=== PATIENT | female | born 1935 ===

== ENCOUNTER 2017-12-10 13:14 | Emergency (ER) | payer MEDICARE, OTHER ==
[2017-12-10 13:14] VITALS: BMI 40.4
--- NOTE | 2017-12-10 14:28 | RAD ---
PROCEDURE: Radiographs of the Right Shoulder HISTORY: Pain s/p fall 2 days ago COMPARISON: No prior. FINDINGS: BONES: Normal. No fracture. JOINTS: Normal. Glenohumeral and acromioclavicular joints preserved. No osteoarthritis. SOFT TISSUES: Normal. OTHER FINDINGS: None. IMPRESSION: Normal radiographs of the right shoulder.
--- NOTE | 2017-12-10 14:29 | RAD ---
PROCEDURE: Right Wrist Radiographs. HISTORY: Pain s/p fall 2 days ago COMPARISON: None. FINDINGS: BONES: Normal. No fracture. JOINTS: Normal. No dislocation. SOFT TISSUES: There is soft tissue irregularity over the ventral distal forearm. OTHER FINDINGS: None. IMPRESSION: No acute fracture. Possible soft tissue injury over ventral distal forearm.
--- NOTE | 2017-12-10 14:51 | C.PDOC ---
History Of Present Illness Pt tripped and fell in her bedroom 2 days ago, injuring her right wrist. She denies LOC, dizziness or head injury. 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: language barrier Onset/Duration Of Symptoms: Days (2) Current Symptoms Are (Timing): Still Present Quality: "Pain" Severity: Moderate Exacerbating Factor(s): Movement Additional History Per: Prior Records Past Medical History Reviewed: Historical Data, Nursing Documentation, Vital Signs Vital Signs: Last Vital Signs Temp 97.5 F L 12/10/17 13:28 Pulse 80 12/10/17 13:28 Resp 20 12/10/17 13:28 BP 139/109 H 12/10/17 13:28 Pulse Ox 97 12/10/17 13:28 - Medical History PMH: Anemia, Anxiety, Arthritis (B/L KNEES ; BACK PAIN), Atrial Fibrillation, Cardia Arrhythmia (ATRIAL FIB), CHF, COPD, Fractures (left hip 10 years ago), Gall Bladder Disease (GALLSTONES), HTN, Hypothyroidism, Malignancy (Breast) Surgical History: Endoscopy, Pacemaker (left side) - [facility] Procedures ASSISTANCE WITH RESPIRATORY VENTILATION, 24-96 HRS, CPAP (08/02/16) DRAINAGE OF CHEST SUBCU/FASCIA, OPEN APPROACH (09/12/16) EXCISION OF LEFT AXILLARY LYMPHATIC, OPEN APPROACH, DIAGN (08/25/16) EXCISION OF LEFT BREAST, OPEN APPROACH (08/25/16) EXTRACTION OF CHEST SKIN, EXTERNAL APPROACH (09/12/16) FLUOROSCOPY OF SUP VENA CAVA USING L OSM CONTRAST, GUIDANCE (09/19/16) INSERTION OF INFUSION DEV INTO SUP VENA CAVA, PERC APPROACH (09/19/16) REPLAC ANY TYPE PACE DEV W/ DUAL CHAMBER DEVICE (11/18/14) Family History: States: Unknown Family Hx - Social History Hx Tobacco Use: No Hx Alcohol Use: No Hx Substance Use: No - Immunization History Hx Tetanus Toxoid Vaccination: No Hx Influenza Vaccination: No Hx Pneumococcal Vaccination: No Review Of Systems Except As Marked, All Systems Reviewed And Found Negative. Constitutional: Negative for: Fever, Weakness Cardiovascular: Negative for: Chest Pain Respiratory: Negative for: Shortness of Breath Gastrointestinal: Negative for: Vomiting, Abdominal Pain Musculoskeletal: Positive for: Shoulder Pain (mild pain in right scapula area). Negative for: Neck Pain, Leg Pain Neurological: Negative for: Weakness, Numbness, Seizures, Altered Mental Status , Headache Physical Exam - Physical Exam Appears: No Acute Distress, Chronically Ill Skin: Normal Color, Warm, Dry Head: Atraumatic Neck: Normal ROM, No Midline Cervical Tenderness, No Step Off Deformity, Supple Chest: No Tenderness Cardiovascular: Rhythm Regular Respiratory: Normal Breath Sounds, No Accessory Muscle Use Gastrointestinal/Abdominal: Soft, No Tenderness Back: No Vertebral Tenderness, Other (mild tenderness or right scapular area) Extremity: Normal ROM, Tenderness (right wrist area), Capillary Refill (wnl), No Deformity Pulses: Right Radial: Normal Neurological/Psych: Oriented x3, Normal Motor, Normal Sensation ED Course And Treatment O2 Sat by Pulse Oximetry: 97 Pulse Ox Interpretation: Normal - Other Rad Right wrist x-rays X-Ray: Viewed By Me, Read By Radiologist Interpretation: IMPRESSION: No acute fracture. Possible soft tissue injury over ventral distal forearm. - CT Scan/US Right Scapula x-rays Other Rad Studies (CT/US): Read By Radiologist, Radiology Report Reviewed CT/US Interpretation: IMPRESSION: Normal radiographs of the right shoulder. Progress Note: Pt was placed in right wrist/forearm velcro splint by me. Good alignment. Reassessment Condition: Improved Disposition Counseled Patient/Family Regarding: Studies Performed, Diagnosis, Need For Followup, Rx Given - Disposition Referrals: Oswald Gonzales MD [Staff Provider] - Disposition: HOME/ ROUTINE Disposition Time: 14:54 Condition: IMPROVED Additional Instructions: Keep your right wrist in the splint provided until healed. Follow up with your primary doctor for further evaluation and treatment. Return to the ER if you develop worsening of symptom or if you have any other concerns. Prescriptions: Acetaminophen [Tylenol Extra Strength] 2 tab PO Q6 PRN #30 tablet PRN Reason: Pain, Moderate (4-7) Instructions: Wrist Sprain (DC) Forms: [employer] (Romanian) Print Language: ITALIAN - Clinical Impression Clinical Impression: Sprain of right wrist, Fall at home
[2017-12-10 17:14] VITALS: BP 138/83; PULSE 84; RESP 22; TEMP 97.9; O2SAT 96
== END 2017-12-10 17:31 | disposition home or self-care (01) ==
LOC: C.ER 13:14
DX: S63.501A Unspecified sprain of right wrist, initial encounter (principal); W01.0XXA Fall on same level from slipping, tripping and stumbling without subsequent striking against object, initial encounter; Y92.003 Bedroom of unspecified non-institutional (private) residence as the place of occurrence of the external cause; I48.91 Unspecified atrial fibrillation; I50.9 Heart failure, unspecified; I10 Essential (primary) hypertension; E03.9 Hypothyroidism, unspecified; J44.9 Chronic obstructive pulmonary disease, unspecified

== ENCOUNTER 2018-04-05 17:59 | Inpatient (IN) | payer MEDICARE, OTHER ==
[2018-04-05 17:59] VITALS: BMI 40.4
[2018-04-05] MEDS ORDERED: Sodium Chloride 0.9% 1,000 ML IV ONE (18:32)
[2018-04-05 18:59] LABS: EOS # 0.1 K/uL (0.0-0.7); LYMPH # 0.9 K/uL (1.0-4.3); MEAN CORPUSCULAR HGB CONC 33.6 g/dL (33.0-37.0); MONO # 0.3 K/uL (0.0-0.8); NEUT # 1.1 K/uL (1.8-7.0)
[2018-04-05 19:01] LABS: SQUAMOUS EPITHIAL < 1 /hpf (0-5); URINE BACTERIA RARE (<OCC); URINE BILIRUBIN NEGATIVE (NEGATIVE); URINE BLOOD NEGATIVE (NEGATIVE); URINE CLARITY Clear (Clear); URINE COLOR Yellow (YELLOW); URINE GLUCOSE (UA) NORMAL (Normal); URINE LEUKOCYTE ESTERASE NEG Leu/uL (Negative); URINE PROTEIN NEGATIVE (NEGATIVE); URINE UROBILINOGEN NORMAL mg/dL (0.2-1.0)
[2018-04-05 19:05] LABS: EOS % 2.7 % (0.0-4.0); LYMPH % 38.7 % (20.0-40.0); MEAN PLATELET VOLUME 7.9 fL (7.2-11.7); MONO % 11.2 % (0.0-10.0); NEUT % 46.4 % (50.0-75.0); RBC 2.06 Mil/uL (3.80-5.20); RED CELL DISTRIBUTION WIDTH 18.7 % (11.5-14.5)
[2018-04-05 19:06] LABS: INR 1.2; PROTHROMBIN TIME 13.5 SECONDS (9.7-12.2)
[2018-04-05 19:09] LABS: HEMOGLOBIN 6.8 g/dL (11.0-16.0); MEAN CELL VOLUME 98.3 fL (81.0-99.0); WHITE BLOOD COUNT 2.3 K/uL (4.8-10.8)
[2018-04-05 19:47] LABS: ALT/SGPT 96 U/L (9-52); AST/SGOT 185 U/L (14-36); B-TYPE NATRIURETIC PEPTIDE 154 pg/mL (0-900); BLOOD UREA NITROGEN 65 mg/dL (7-17); CALCIUM 8.9 mg/dl (8.6-10.4); GFR NON-AFRICAN AMERICAN 23
--- NOTE | 2018-04-05 19:47 | C.PDOC ---
History Of Present Illness 83 year old female is brought in to the ED from home by her daughter for evaluation of poor appetite, lethargy that has been worsening last week. Patient has history of breast CA, left mastectomy and chemotherapy. Patient has widely known metastatic disease. Time Seen by Provider: 04/05/18 18:23 Chief Complaint (Nursing): Abdominal Pain History Per: Patient, Family History/Exam Limitations: no limitations Onset/Duration Of Symptoms: Days Current Symptoms Are (Timing): Still Present Location Of Pain/Discomfort: Diffuse Quality Of Discomfort: "Pain" Associated Symptoms: denies: Nausea, Vomiting, Diarrhea, Urinary Symptoms Exacerbating Factors: None Recent travel outside of the [place]: No Additional History Per: Patient Abnormal Vaginal Bleeding: No Past Medical History Reviewed: Historical Data, Nursing Documentation, Vital Signs Vital Signs: Last Vital Signs Temp 97.5 F L 04/06/18 00:05 Pulse 60 04/06/18 00:05 Resp 20 04/06/18 00:05 BP 124/71 04/06/18 00:05 Pulse Ox 97 04/06/18 00:05 - Medical History PMH: Anemia, Anxiety, Arthritis (B/L KNEES ; BACK PAIN), Atrial Fibrillation, Cardia Arrhythmia (ATRIAL FIB), CHF, COPD, Fractures (left hip 10 years ago), Gall Bladder Disease (GALLSTONES), HTN, Hypothyroidism, Malignancy (Breast) Denies: Chronic Kidney Disease Surgical History: Endoscopy, Pac[facility] (left side[facility] Procedures ASSISTANCE WITH RESPIRATORY VENTILATION, 24-96 HRS, CPAP (08/02/16) DRAINAGE OF CHEST SUBCU/FASCIA, OPEN APPROACH (09/12/16) EXCISION OF LEFT AXILLARY LYMPHATIC, OPEN APPROACH, DIAGN (08/25/16) EXCISION OF LEFT BREAST, OPEN APPROACH (08/25/16) EXTRACTION OF CHEST SKIN, EXTERNAL APPROACH (09/12/16) FLUOROSCOPY OF SUP VENA CAVA USING L OSM CONTRAST, GUIDANCE (09/19/16) INSERTION OF INFUSION DEV INTO SUP VENA CAVA, PERC APPROACH (09/19/16) REPLAC ANY TYPE PACE DEV W/ DUAL CHAMBER DEVICE (11/18/14) Family History: States: Unknown Family Hx - Social History Hx Tobacco Use: No Hx Alcohol Use: No Hx Substance Use: No - Immunization History Hx Tetanus Toxoid Vaccination: No Hx Influenza Vaccination: No Hx Pneumococcal Vaccination: No Review Of Systems Constitutional: Positive for: Malaise. Negative for: Fever, Chills Eyes: Negative for: Vision Change Cardiovascular: Negative for: Chest Pain, Palpitations Respiratory: Negative for: Cough, Shortness of Breath Gastrointestinal: Negative for: Nausea, Vomiting, Abdominal Pain Skin: Negative for: Rash Neurological: Negative for: Weakness, Numbness Physical Exam - Physical Exam Appears: Non-toxic, Other (elderly female, lethargic) Skin: Normal Color, Warm, Dry Head: Atraumatic, Normacephalic Eye(s): bilateral: Normal Inspection Neck: Normal ROM, Supple Chest: Symmetrical, Tenderness (left anterior chest wall discomfort), Other ( left mastectomy, surgical scar noted no rash) Cardiovascular: Rhythm Regular Respiratory: Normal Breath Sounds, No Rales, No Rhonchi, No Wheezing Gastrointestinal/Abdominal: Soft, No Tenderness, No Guarding, No Rebound, Other (obese) Extremity: Normal ROM, No Tenderness, No Swelling Neurological/Psych: Oriented x3, Normal Speech Gait: Steady ED Course And Treatment - Laboratory Results Result Diagrams: 04/05/18 18:45 04/05/18 18:45 Lab Interpretation: Abnormal (+ significant anemia, drop from baseline 9.5 (10/06 ) not mircocytic, + widened RDW) ECG: Interpreted By Nh ECG Rhythm: AV Paced ECG Interpretation: Normal Rate From EC (BPM) O2 Sat by Pulse Oximetry: 100 (ON RA) Pulse Ox Interpretation: Normal - Radiology CXR: Interpreted by Nh CXR Interpretation: Yes: No Acute Disease Reevaluation Time: 19:49 Reassessment Condition: Improved - Physician Consult Information Outcome Of Conversation: 2000: d/w Dr. Hsu- Hospitalist covering Dr. Gonzales' s pt's, ok to admit. Medical Decision Making Medical Decision Making: signficant anemia drop c/w prior 10/06 not microcytic but widened RDW argues for superimposed micro/macocytic anemias May be related to bony mets or bone marrow suppresion from prior chemotherapy for breast CA- consider Cyclophosphomide further studies as needed- consider smear and/or bone marrow bx PRIOR to blood tx's. Blood Tx's started in ED L chest discomfort: digitally reproducable @ area of L mastectomy may be related to bony mets no sig INTRAthoracic findings on Chest CT Disposition Doctor Will See Patient In The: Hospital Counseled Patient/Family Regarding: Studies Performed, Diagnosis - Disposition Disposition: HOSPITALIZED Disposition Time: 19:51 Condition: GOOD - Clinical Impression Clinical Impression: Symptomatic anemia - Scribe Statement The provider has reviewed the documentation as recorded by the Scribe Martin Monge All medical record entries made by the [place]ibe were at my direction and personally dictated by me. I have reviewed the chart and agree that the record accurately reflects my personal performance of the history, physical exam, medical decision making, and the department course for this patient. I have also personally directed, reviewed, and agree with the discharge instructions and disposition.
--- NOTE | 2018-04-05 19:58 | CP.PCM.HP ---
History of Present Illness - History of Present Illness History of Present Illness: Resident History & Physical for Hospitalist Service Patient is a 83 year old female with past medical history of anemia, atrial fibrillation, CHF, COPD HTN, hypothyroidism, breast cancer s/p mastectomy now on chemo presenting with chief complaint of weakness and swelling of the face which began about 3 days prior. History was obtained with help of daughter who was at beside. Patient has history of anemia and has received several transfusions in the past. Patient also admits to epigastric discomfort that is accompanied by shortness of breath. Patient denies any changes in diet or medications. Denies trauma, falls, headache, dizziness, chest pain, changes in bowel movements, dysuria. Past medical history: anemia, anxiety, arthritis, atrial fibrillation, CHF, COPD , cholelithiasis, HTN, hypothyroidism, malignancy (breast) Past surgical history: mastectomy (2016), pacemaker (2010), left hip surgery Social history: 5 cans of beer per day past 20 years. 2 cigarettes per week past 20 years. Denies recreational drug use. Allergies: NKDA PMD: Dr. Gonzales Pharmacy: [facility] Present on Admission - Present on Admission Any Indicators Present on Admission: No Review of Systems - Constitutional Constitutional: absent: Chills, Fever, Frequent Falls - EENT Eyes: absent: Change in Vision Nose/Mouth/Throat: absent: Sore Throat Additional comments: Admits to facial swelling. - Cardiovascular Cardiovascular: absent: Leg Edema, Palpitations, Syncope - Respiratory Respiratory: absent: Cough, Hemoptysis - Gastrointestinal Gastrointestinal: Abdominal Pain. absent: Change in Bowel Habits, Nausea, Vomiting - Genitourinary Genitourinary: absent: Dysuria - Musculoskeletal Musculoskeletal: Arthralgias - Neurological Neurological: absent: Abnormal Gait, Numbness, Headaches Past Patient History - Infectious Disease Hx of Infectious Diseases: None - Tetanus Immunizations Tetanus Immunization: Unknown - Past Medical History & Family History Past Medical History?: Yes - Past Social History Smoking Status: Former Smoker - CARDIAC Hx Atrial Fibrillation: Yes Hx Cardia Arrhythmia: Yes (ATRIAL FIB) Hx Congestive Heart Failure: Yes Hx Hypertension: Yes Hx Pacemaker: Yes (left side) - PULMONARY Hx Chronic Obstructive Pulmonary Disease (COPD): Yes - NEUROLOGICAL Hx Neurological Disorder: No - HEENT Hx HEENT Problems: Yes Hx Blind: Yes (ARTIFICIAL LEFT EYE, right eye blind) Hx Glaucoma: Yes (right eye) - RENAL Hx Chronic Kidney Disease: No - ENDOCRINE/METABOLIC Hx Hypothyroidism: Yes - HEMATOLOGICAL/ONCOLOGICAL Hx Anemia: Yes - INTEGUMENTARY Hx Dermatological Problems: No - MUSCULOSKELETAL/RHEUMATOLOGICAL Hx Arthritis: Yes (B/L KNEES ; BACK PAIN) Hx Fractures: Yes (left hip 10 years ago) - GASTROINTESTINAL Hx Gall Bladder Disease: Yes (GALLSTONES) - GENITOURINARY/GYNECOLOGICAL Hx Genitourinary Disorders: Yes (URINARY FREQUENCY) - PSYCHIATRIC Hx Anxiety: Yes Hx Substance Use: No - SURGICAL HISTORY Hx Surgeries: Yes Hx Breast Biopsy: Yes Hx Cardiac Catheterization: Yes Hx Eye Surgery: Yes (left eye) Hx Hysterectomy: Yes (4o years ago) Hx Mastectomy: Yes (left 08/25/16) Hx Orthopedic Surgery: Yes (left hip 10 yrs ago) - ANESTHESIA Hx Anesthesia: Yes Hx Anesthesia Reactions: No Hx Malignant Hyperthermia: No Meds Allergies/Adverse Reactions: Allergies Allergy/AdvReac Type Severity Reaction Status Date / Time No Known Allergies Allergy Verified 04/05/18 18:07 Physical Exam - Constitutional Appears: Non-toxic, No Acute Distress - Head Exam Head Exam: ATRAUMATIC, NORMOCEPHALIC - Eye Exam Eye Exam: Normal appearance Additional comments: Left orbital prosthesis - ENT Exam ENT Exam: Mucous Membranes Dry, Normal External Ear Exam - Neck Exam Neck exam: Positive for: Normal Inspection - Respiratory Exam Respiratory Exam: Clear to Auscultation Bilateral, NORMAL BREATHING PATTERN. absent: Respiratory Distress - Cardiovascular Exam Cardiovascular Exam: REGULAR RHYTHM, +S1, +S2 - GI/Abdominal Exam GI & Abdominal Exam: Normal Bowel Sounds, Soft. absent: Distended, Firm, Guarding, Rebound, Rigid, Tenderness - Extremities Exam Extremities exam: Positive for: calf tenderness, pedal pulses present. Negative for: pedal edema - Back Exam Back exam: NORMAL INSPECTION - Neurological Exam Neurological exam: Alert, CN II-XII Intact, Oriented x3 - Psychiatric Exam Psychiatric exam: Normal Affect, Normal Mood - Skin Skin Exam: Dry, Intact, Normal Color Results - Vital Signs Recent Vital Signs: Last Vital Signs Temp 94.1 F L 04/05/18 19:21 Pulse 66 04/05/18 19:08 Resp 18 04/05/18 19:08 BP 110/49 L 04/05/18 19:08 Pulse Ox 100 04/05/18 19:53 - Labs Result Diagrams: 04/05/18 18:45 04/05/18 18:45 Labs: Laboratory Results - last 24 hr 04/05/18 04/05/18 04/05/18 18:45 18:45 18:45 WBC 2.3 L D RBC 2.06 L Hgb 6.8 L D Hct 20.2 L MCV 98.3 D MCH 33.0 H MCHC 33.6 RDW 18.7 H Plt Count 95 L D MPV 7.9 Neut % (Auto) 46.4 L Lymph % (Auto) 38.7 [place] % (Auto) 11.2 H Eos % (Auto) 2.7 Baso % (Auto) 1.0 Neut # (Auto) 1.1 L Lymph # (Auto) 0.9 L [place] # (Auto) 0.3 Eos # (Auto) 0.1 Baso # (Auto) 0.0 Differential Comment PT 13.5 H INR 1.2 APTT 35 H Sodium Potassium Chloride Carbon Dioxide Anion Gap BUN Creatinine Est GFR ( Amer) Est GFR (Non-Af Amer) Random Glucose Calcium Total Bilirubin AST ALT Alkaline Phosphatase Troponin I NT-Pro-B Natriuret Pep Total Protein Albumin Globulin Albumin/Globulin Ratio Urine Color Yellow Urine Clarity Clear Urine pH 5.0 Ur Specific [place] 1.010 Urine Protein Negative Urine Glucose (UA) Normal Urine Ketones Negative Urine Blood Negative Urine Nitrate Negative Urine Bilirubin Negative Urine Urobilinogen Normal Ur Leukocyte Esterase Neg Urine WBC (Auto) < 1 Urine RBC (Auto) < 1 Ur Squamous Epith Cells < 1 Urine Bacteria Rare 04/05/18 18:45 WBC RBC Hgb Hct MCV MCH MCHC RDW Plt Count MPV Neut % (Auto) Lymph % (Auto) [place] % (Auto) Eos % (Auto) Baso % (Auto) Neut # (Auto) Lymph # (Auto) [place] # (Auto) Eos # (Auto) Baso # (Auto) Differential Comment PT INR APTT Sodium 135 Potassium 4.3 Chloride 102 Carbon Dioxide 22 Anion Gap 16 BUN 65 H Creatinine 2.1 H Est GFR ( Amer) 27 Est GFR (Non-Af Amer) 23 Random Glucose 146 H Calcium 8.9 Total Bilirubin 1.1 AST 185 H ALT 96 H D Alkaline Phosphatase 564 H Troponin I < 0.0120 NT-Pro-B Natriuret Pep 154 Total Protein 6.1 L Albumin 3.0 L Globulin 3.1 Albumin/Globulin Ratio 1.0 Urine Color Urine Clarity Urine pH Ur Specific [place] Urine Protein Urine Glucose (UA) Urine Ketones Urine Blood Urine Nitrate Urine Bilirubin Urine Urobilinogen Ur Leukocyte Esterase Urine WBC (Auto) Urine RBC (Auto) Ur Squamous Epith Cells Urine Bacteria Assessment & Plan - Assessment and Plan (Free Text) Plan: Weakness - Likely secondary to anemia secondary to GI bleed - FOBT positive - Hgb 6.8 - NPO - Protonix drip - 2 units PRBCs given - Continue to monitor and transfuse as needed - HAS BLED score 3 (Liver disease, Age>65, Alcohol use) - GI consulted. Appreciate recs. Abdominal pain - Likely secondary to GI bleed - Chest CT shows no acute findings in the chest. Cirrhotic liver with portal hypertension. Cholelithiasis without evidence of cholecystitis. Bulky adenopathy noted within the upper abdomen. indeterminate nodule right midlung. History of breast cancer - s/p mastectomy on chemo - Chest CT shows metastatic disease to the skeleton. MAHAD - Creatinine 2.1 - NS 100 ccs/hr - Continue to monitor Pancytopenia - Likely secondary to chemo - Heme/onc consulted. Appreciate recs. HTN - Vital signs Q4 - Followup home meds Hypothyroidism - Followup home meds CHF - Followup home meds COPD - Duonebs Q6H PRN PPX - Protonix drip - SCDs Ghazal Pritchett PGY-1 - Date & Time Date: 04/05/18 Time: 21:00
[2018-04-05] MEDS ORDERED: Sodium Chloride 0.9% 1,000 ML IV SCH (21:45)
[2018-04-05] MEDS ORDERED: Pantoprazole 80 MG in Sodium Chloride 0.9% 100 ML IVP SCH (21:45)
[2018-04-05 22:40] LABS: IRON 194 ug/dL (37-170)
[2018-04-05 22:49] LABS: % IRON SATURATION 74 (20-55); TOTAL IRON BINDING CAPACITY 262 ug/dL (250-450)
[2018-04-06] MEDS ORDERED: Pantoprazole 80 MG in Sodium Chloride 0.9% 100 ML IVPB SCH (02:15)
[2018-04-06 03:54] LABS: CK-MB < 0.22 ng/mL (0.0-3.38)
--- NOTE | 2018-04-06 08:13 | CP.PCM.PN ---
<Lila TORRESPolly Helen - Last Filed: 04/06/18 12:06> Subjective - Date & Time of Evaluation Date of Evaluation: 04/06/18 Time of Evaluation: 08:13 - Subjective Subjective: PGY3 Medicine progress note for Dr. Crocker's Service: Patient seen and examined. Patient denies complaints currently. Patient's daughter at bedside later reports that patient has increased pallor compared to baseline. Daughter reports patient is on Tamoxifen for chemotherapy and takes aspirin 81mg for history of atrial fibrillation. She also reports history of systolic CHF. CT scan of chest reports that patient had left nephrectomy- patient denies this surgery. Patient's daughter reports that the patient does drink beer daily. Objective - Vital Signs/Intake and Output Vital Signs (last 24 hours): Temp Pulse Resp BP Pulse Ox 97.5 F L 60 20 124/71 100 04/06/18 00:05 04/06/18 00:05 04/06/18 00:05 04/06/18 00:05 04/06/18 00:16 - Medications Medications: Current Medications Albuterol/Ipratropium (Duoneb 3 Mg/0.5 Mg (3 Ml) Ud) 3 ml INH RQ6 PRN PRN Reason: Shortness of Breath Sodium Chloride (Sodium Chloride 0.9%) 1,000 mls @ 100 mls/hr IV .Q10H WILLIAM Last Admin: 04/06/18 01:07 Dose: 100 mls/hr Pantoprazole Sodium 80 mg/ (Sodium Chloride) 100 mls @ 10 mls/hr IVPB .Q10H WILLIAM PRN Reason: 8 MG/HR Last Admin: 04/06/18 02:15 Dose: 10 mls/hr - Labs Labs: 04/05/18 18:45 04/05/18 18:45 PT 13.5 SECONDS (9.7-12.2) H 04/05/18 18:45 INR 1.2 04/05/18 18:45 APTT 35 SECONDS (21-34) H 04/05/18 18:45 - Constitutional Appears: No Acute Distress - Head Exam Head Exam: ATRAUMATIC, NORMOCEPHALIC - Eye Exam Eye Exam: EOMI - ENT Exam ENT Exam: Mucous Membranes Moist - Respiratory Exam Respiratory Exam: Clear to Ausculation Bilateral - Cardiovascular Exam Cardiovascular Exam: +S1, +S2 - GI/Abdominal Exam GI & Abdominal Exam: Soft. absent: Tenderness - Extremities Exam Extremities Exam: Normal Inspection - Back Exam Back Exam: NORMAL INSPECTION - Neurological Exam Neurological Exam: Alert, Awake - Psychiatric Exam Psychiatric exam: Normal Affect - Skin Skin Exam: Pallor, Warm Additional comments: no surgical scars on back or abdomen Assessment and Plan - Assessment and Plan (Free Text) Assessment: (1) Pancytopenia Assessment & Plan: Patient has history of breast cancer with mastectomy 2 years ago. Per daughter, patient on Tamoxifen, unclear last chemo date heme-onc consulted- Dr. Robert- help appreciated + fecal occult blood, GI consulted- Dr. Munguia, help appreciated (Dr. Cole covering) Patient received one unit PRBC overnight with improvement of hemoglobin from 6.8 to 7.7 Status: Acute (2) Abnormal LFTs Assessment & Plan: Will check Abdominal US will check Hepatitis panel patient reports history of "liver issue" unclear how much alcohol patient actually consuming on daily basis- history from daughter and patient conflicting Status: Acute (3) Acute renal failure Assessment & Plan: consult nephrology- Dr. Saravia, help appreciated prior admission BUN/Cr normal Patient prelim read CT chest noted for left nephrectomy; pending official report. Patient denies nephrectomy check renal US Status: Acute (4) Atrial fibrillation Assessment & Plan: takes aspirin 81mg as outpatient- holding now due to GI bleed Dr. Ortega consulted- help appreciated Status: Chronic (5) CHF (congestive heart failure) Assessment & Plan: prior echo from 2016; noted for mild impairment EF: 45% Reorder new echocardiogram to check EF off aspirin given drop in H/H patient has pacemaker Status: Chronic (6) COPD (chronic obstructive pulmonary disease) Assessment & Plan: Duonebs PRN shortness of breath chest xray 04/05: left sided pacemaker. mild venous congestion. tortuous ectatic aorta with calcification at aortic knob. mild cardiomegaly. (see full report) CT chest 04/05: (prelim read) no acute findings in the chest. metastatic disease to the skeleton. cirrhotic liver with portal hypertension. Bulky adenopathy upper abdomen. Metastatic disease cannot be excluded. Status: Chronic (7) Breast Cancer Assessment & Plan: patient s/p mastectomy 2 years ago patient on tamoxifen heme-onc consult, Dr. Robert, help appreciated CT chest shows possible metastatic disease Status: Chronic (8) Glaucoma Assessment & Plan: patient is legally blind. Status: Chronic (9) HTN (hypertension) currently normotensive, will continue to monitor Status: Chronic (10) Hypothyroidism Status: Chronic (11) Prophylactic measure Assessment & Plan: off chemical anticoagulation given concern for GI bleed Protonix 40mg IV Q12H <Georgia Crocker Leon - Last Filed: 04/06/18 18:59> Objective - Vital Signs/Intake and Output Vital Signs (last 24 hours): Temp Pulse Resp BP Pulse Ox 97.4 F L 81 20 131/78 97 04/06/18 08:12 04/06/18 08:12 04/06/18 08:12 04/06/18 08:12 04/06/18 08:12 - Medications Medications: Current Medications Albuterol/Ipratropium (Duoneb 3 Mg/0.5 Mg (3 Ml) Ud) 3 ml INH RQ6 PRN PRN Reason: Shortness of Breath Sodium Chloride (Sodium Chloride 0.9%) 1,000 mls @ 100 mls/hr IV .Q10H [facility] Last Admin: 04/06/18 01:07 Dose: 100 mls/hr Pantoprazole Sodium (Protonix Inj) 40 mg IVP Q12 WILLIAM - Labs Labs: 04/06/18 07:51 04/06/18 07:51 PT 13.5 SECONDS (9.7-12.2) H 04/05/18 18:45 INR 1.2 04/05/18 18:45 APTT 35 SECONDS (21-34) H 04/05/18 18:45 Assessment and Plan (1) Glaucoma Assessment & Plan: patient is legally blind. Status: Chronic (2) Abnormal LFTs Assessment & Plan: Will check Abdominal US will check Hepatitis panel Status: Acute (3) Pancytopenia Assessment & Plan: Patient history of breast cancer; review of EMR: ER2/PR2 positive. Patient reports last seen her heme=onc 7 months ago. Patient reports has had mastectomy about 2 years ago. Daughter casa remember the name of her heme-onc Patient is taking Tamoxfen as outpatient Patient reports she takes iron supplements as outpatient. Patient reports occasional wine 2-3 glasses on Sunday. Denies hx of ulcers, denies NSAID use. unclear if on blood thinner given history of atrial fibrillation Patient has never had endoscopy/colonoscopy/ Will consult heme-oncology. positive stool occult blood Patient unable to report if black stool or BRBPR given she is legally blind Patient received 1 unit of PRBC overnight; awaiting 2nd unit. Likely ferritin this morning is after being given PRBC per daughter, patient was very pale and weak at home. Status: Acute (4) Atrial fibrillation Assessment & Plan: will need to find out what meds she is on takes aspirin as outpatient sees dr. ortega as otupatient Status: Chronic (5) CHF (congestive heart failure) Assessment & Plan: prior echo from 2016; noted for mild impairment EF: 45% Reorder new echocardiogram to check EF off aspirin given drop in H/H Status: Chronic (6) HTN (hypertension) Status: Chronic (7) Hypothyroidism Status: Chronic (8) COPD (chronic obstructive pulmonary disease) Assessment & Plan: Duonebs PRN shortness of breathe pending chest xray pending CT chest Status: Chronic (9) Acute renal failure Assessment & Plan: consult nephrology prior admission BUN/Cr normal unclear if related to GI bleed or not Patient prelim read CT chest noted for left nephrectomy; pending official report. Patient denies nephrectomy check renal US Status: Acute (10) Pacemaker Status: Chronic (11) Prophylactic measure Assessment & Plan: off chemical anticoagulation given concern for GI bleed Protonix 40mg IV Q12H Status: Acute Attending/Attestation - Attestation I have personally seen and examined this patient.: Yes I have fully participated in the care of the patient.: Yes I have reviewed all pertinent clinical information, including history, physical exam and plan: Yes Notes (Text): Patient seen, examined and case discussed with forensic medical examiner. GI, Cardiology, Nephrology, and Hematology-oncology on case. Patient to complete 2nd unit of PRBC today. Patient with known hx of CHF, systolic. Monitor for fluid overload. Patient's daughter, Ghazala came in later, affirmed pale, weakness, unable to talk at home. No prior endo/colonoscopy. Beer drinker and aspirin for atrial fibrillation risk factors. Patient is legally blind. Patien unable to say if black stools or BRBPR. Patient is on Tamoxifen for breast cance as outpatient per jomar. Patient is full code.
[2018-04-06 08:15] LABS: ALT/SGPT 106 U/L (9-52); AST/SGOT 191 U/L (14-36); BLOOD UREA NITROGEN 59 mg/dL (7-17); CALCIUM 9.1 mg/dl (8.6-10.4); GFR NON-AFRICAN AMERICAN 27
[2018-04-06 08:18] LABS: EOS # 0.1 K/uL (0.0-0.7); EOS % 2.8 % (0.0-4.0); HEMOGLOBIN 7.7 g/dL (11.0-16.0); LYMPH # 1.2 K/uL (1.0-4.3); MEAN CELL VOLUME 96.3 fL (81.0-99.0); MEAN CORPUSCULAR HGB CONC 34.3 g/dL (33.0-37.0); MEAN PLATELET VOLUME 7.9 fL (7.2-11.7); MONO # 0.4 K/uL (0.0-0.8); MONO % 11.4 % (0.0-10.0); NEUT # 1.4 K/uL (1.8-7.0); NEUT % 45.8 % (50.0-75.0); NRBC % 0.8 % (0.0-2.0); RBC 2.34 Mil/uL (3.80-5.20); RED CELL DISTRIBUTION WIDTH 18.6 % (11.5-14.5); WHITE BLOOD COUNT 3.1 K/uL (4.8-10.8)
[2018-04-06 08:33] LABS: CK-MB < 0.22 ng/mL (0.0-3.38)
--- NOTE | 2018-04-06 09:22 | RAD ---
Chest x-ray single frontal view History: Shortness of breath. Comparison: 09/22/2016 Findings: Left-sided pacemaker. Mild venous congestion. Tortuous ectatic aorta with calcification at the aortic knob. Mild cardiomegaly. Degenerative changes in the spine. Impression: Left-sided pacemaker. Mild venous congestion. Tortuous ectatic aorta with calcification at the aortic knob. Mild cardiomegaly.
[2018-04-06 09:27] LABS: FOLATE > 20.0 ng/mL
--- NOTE | 2018-04-06 09:56 | CP.PCM.CON ---
History of Present Illness - History of Present Illness History of Present Illness: Admitted for weakness SOB. Found to have anemia. H/o metastatic breast CAncer s/p chemo. No RB, melena,. She reports a "liver problem". SH: ++ETOH- debbie 4 /week Rn present and translated. Pt seen with Dr Crocker. Reports EGD and colonsocopy 2 years ago. PMD- Dr Rosario Review of Systems - Constitutional Constitutional: Fatigue. absent: Chills, Fever, Weight Gain - EENT Eyes: Loss of Vision - Cardiovascular Cardiovascular: Chest Pain, Dyspnea - Respiratory Respiratory: absent: Cough, Wheezing - Gastrointestinal Gastrointestinal: absent: Abdominal Pain, Constipation, Hematemesis, Hematochezia, Loose Stools, Melena, Nausea, Odynophagia, Temesmus, Vomiting - Genitourinary Genitourinary: absent: Hematuria - Musculoskeletal Musculoskeletal: absent: Radiating Pain into Limb - Integumentary Integumentary: absent: Pruritus, Jaundice - Neurological Neurological: absent: Convulsions Past Patient History - Infectious Disease Hx of Infectious Diseases: None - Tetanus Immunizations Tetanus Immunization: Unknown - Past Medical History & Family History Past Medical History?: Yes - Past Social History Smoking Status: Former Smoker - CARDIAC Hx Atrial Fibrillation: Yes Hx Cardia Arrhythmia: Yes (ATRIAL FIB) Hx Congestive Heart Failure: Yes Hx Hypertension: Yes Hx Pacemaker: Yes (left side) - PULMONARY Hx Chronic Obstructive Pulmonary Disease (COPD): Yes - NEUROLOGICAL Hx Neurological Disorder: No - HEENT Hx HEENT Problems: Yes Hx Blind: Yes (ARTIFICIAL LEFT EYE, right eye blind) Hx Glaucoma: Yes (right eye) - RENAL Hx Chronic Kidney Disease: No - ENDOCRINE/METABOLIC Hx Hypothyroidism: Yes - HEMATOLOGICAL/ONCOLOGICAL Hx Anemia: Yes - INTEGUMENTARY Hx Dermatological Problems: No - MUSCULOSKELETAL/RHEUMATOLOGICAL Hx Arthritis: Yes (B/L KNEES ; BACK PAIN) Hx Fractures: Yes (left hip 10 years ago) - GASTROINTESTINAL Hx Gall Bladder Disease: Yes (GALLSTONES) - GENITOURINARY/GYNECOLOGICAL Hx Genitourinary Disorders: Yes (URINARY FREQUENCY) - PSYCHIATRIC Hx Anxiety: Yes Hx Substance Use: No - SURGICAL HISTORY Hx Surgeries: Yes Hx Breast Biopsy: Yes Hx Cardiac Catheterization: Yes Hx Eye Surgery: Yes (left eye) Hx Hysterectomy: Yes (4o years ago) Hx Mastectomy: Yes (left 08/25/16) Hx Orthopedic Surgery: Yes (left hip 10 yrs ago) - ANESTHESIA Hx Anesthesia: Yes Hx Anesthesia Reactions: No Hx Malignant Hyperthermia: No Meds Allergies/Adverse Reactions: Allergies Allergy/AdvReac Type Severity Reaction Status Date / Time No Known Allergies Allergy Verified 04/05/18 18:07 - Medications Medications: Current Medications Albuterol/Ipratropium (Duoneb 3 Mg/0.5 Mg (3 Ml) Ud) 3 ml INH RQ6 PRN PRN Reason: Shortness of Breath Sodium Chloride (Sodium Chloride 0.9%) 1,000 mls @ 100 mls/hr IV .Q10H [facility] Last Admin: 04/06/18 01:07 Dose: 100 mls/hr Pantoprazole Sodium 80 mg/ (Sodium Chloride) 100 mls @ 10 mls/hr IVPB .Q10H [facility] PRN Reason: 8 MG/HR Last Admin: 04/06/18 02:15 Dose: 10 mls/hr Physical Exam - Constitutional Appears: Non-toxic - Respiratory Exam Respiratory Exam: Clear to Auscultation Bilateral - Cardiovascular Exam Cardiovascular Exam: Irregular Rhythm, RRR - GI/Abdominal Exam GI & Abdominal Exam: Normal Bowel Sounds, Soft. absent: Distended, Tenderness - Extremities Exam Extremities exam: Negative for: calf tenderness - Neurological Exam Neurological exam: Alert, Oriented x3 Results - Vital Signs Recent Vital Signs: Last Vital Signs Temp 97.4 F L 04/06/18 08:12 Pulse 81 04/06/18 08:12 Resp 20 04/06/18 08:12 BP 131/78 04/06/18 08:12 Pulse Ox 97 04/06/18 08:12 - Labs Result Diagrams: 04/06/18 07:51 04/06/18 07:51 Labs: Laboratory Results - last 24 hr 04/05/18 04/05/18 04/05/18 18:45 18:45 18:45 WBC 2.3 L D RBC 2.06 L Hgb 6.8 L D Hct 20.2 L MCV 98.3 D MCH 33.0 H MCHC 33.6 RDW 18.7 H Plt Count 95 L D MPV 7.9 Neut % (Auto) 46.4 L Lymph % (Auto) 38.7 Tyrrell % (Auto) 11.2 H Eos % (Auto) 2.7 Baso % (Auto) 1.0 Neut # (Auto) 1.1 L Lymph # (Auto) 0.9 L Tyrrell # (Auto) 0.3 Eos # (Auto) 0.1 Baso # (Auto) 0.0 Differential Comment Retic Count PT 13.5 H INR 1.2 APTT 35 H Sodium Potassium Chloride Carbon Dioxide Anion Gap BUN Creatinine Est GFR ( Amer) Est GFR (Non-Af Amer) Random Glucose Calcium Iron TIBC % Saturation Ferritin Total Bilirubin AST ALT Alkaline Phosphatase Total Creatine Kinase CK-MB (Mass) Troponin I NT-Pro-B Natriuret Pep Total Protein Albumin Globulin Albumin/Globulin Ratio Vitamin B12 Folate Urine Color Yellow Urine Clarity Clear Urine pH 5.0 Ur Specific [place] 1.010 Urine Protein Negative Urine Glucose (UA) Normal Urine Ketones Negative Urine Blood Negative Urine Nitrate Negative Urine Bilirubin Negative Urine Urobilinogen Normal Ur Leukocyte Esterase Neg Urine WBC (Auto) < 1 Urine RBC (Auto) < 1 Ur Squamous Epith Cells < 1 Urine Bacteria Rare Stool Occult Blood Blood Type Antibody Screen 04/05/18 04/05/18 04/05/18 18:45 19:54 20:08 WBC RBC Hgb Hct MCV MCH MCHC RDW Plt Count MPV Neut % (Auto) Lymph % (Auto) Tyrrell % (Auto) Eos % (Auto) Baso % (Auto) Neut # (Auto) Lymph # (Auto) Tyrrell # (Auto) Eos # (Auto) Baso # (Auto) Differential Comment Retic Count PT INR APTT Sodium 135 Potassium 4.3 Chloride 102 Carbon Dioxide 22 Anion Gap 16 BUN 65 H Creatinine 2.1 H Est GFR ( Amer) 27 Est GFR (Non-Af Amer) 23 Random Glucose 146 H Calcium 8.9 Iron TIBC % Saturation Ferritin Total Bilirubin 1.1 AST 185 H ALT 96 H D Alkaline Phosphatase 564 H Total Creatine Kinase CK-MB (Mass) Troponin I < 0.0120 NT-Pro-B Natriuret Pep 154 Total Protein 6.1 L Albumin 3.0 L Globulin 3.1 Albumin/Globulin Ratio 1.0 Vitamin B12 Folate Urine Color Urine Clarity Urine pH Ur Specific [place] Urine Protein Urine Glucose (UA) Urine Ketones Urine Blood Urine Nitrate Urine Bilirubin Urine Urobilinogen Ur Leukocyte Esterase Urine WBC (Auto) Urine RBC (Auto) Ur Squamous Epith Cells Urine Bacteria Stool Occult Blood Positive H Blood Type O POSITIVE Antibody Screen Negative 0804/06/18 04/06/18 22:25 02:53 07:51 WBC RBC Hgb Hct MCV MCH MCHC RDW Plt Count MPV Neut % (Auto) Lymph % (Auto) Tyrrell % (Auto) Eos % (Auto) Baso % (Auto) Neut # (Auto) Lymph # (Auto) Tyrrell # (Auto) Eos # (Auto) Baso # (Auto) Differential Comment Retic Count PT INR APTT Sodium 139 Potassium 4.7 Chloride 107 Carbon Dioxide 25 Anion Gap 13 BUN 59 H Creatinine 1.8 H Est GFR ( Amer) 33 Est GFR (Non-Af Amer) 27 Random Glucose 88 Calcium 9.1 Iron 194 H TIBC 262 % Saturation 74 H Ferritin 528.0 Total Bilirubin 1.5 H AST 191 H ALT 106 H Alkaline Phosphatase 567 H Total Creatine Kinase 54 CK-MB (Mass) < 0.22 Troponin I < 0.0120 NT-Pro-B Natriuret Pep Total Protein 6.0 L Albumin 3.0 L Globulin 3.0 Albumin/Globulin Ratio 1.0 Vitamin B12 > 1000 H Folate > 20.0 Urine Color Urine Clarity Urine pH Ur Specific [place] Urine Protein Urine Glucose (UA) Urine Ketones Urine Blood Urine Nitrate Urine Bilirubin Urine Urobilinogen Ur Leukocyte Esterase Urine WBC (Auto) Urine RBC (Auto) Ur Squamous Epith Cells Urine Bacteria Stool Occult Blood Blood Type Antibody Screen 04/06/18 04/06/18 04/06/18 07:51 07:51 07:51 WBC 3.1 L RBC 2.34 L Hgb 7.7 L Hct 22.5 L MCV 96.3 D MCH 33.0 H MCHC 34.3 RDW 18.6 H Plt Count 84 L MPV 7.9 Neut % (Auto) 45.8 L Lymph % (Auto) 39.0 Tyrrell % (Auto) 11.4 H Eos % (Auto) 2.8 Baso % (Auto) 1.0 Neut # (Auto) 1.4 L Lymph # (Auto) 1.2 Tyrrell # (Auto) 0.4 Eos # (Auto) 0.1 Baso # (Auto) 0.0 Differential Comment Retic Count 3.0 H D PT INR APTT Sodium Potassium Chloride Carbon Dioxide Anion Gap BUN Creatinine Est GFR ( Amer) Est GFR (Non-Af Amer) Random Glucose Calcium Iron TIBC % Saturation Ferritin Total Bilirubin AST ALT Alkaline Phosphatase Total Creatine Kinase 56 CK-MB (Mass) < 0.22 Troponin I < 0.0120 NT-Pro-B Natriuret Pep Total Protein Albumin Globulin Albumin/Globulin Ratio Vitamin B12 Folate Urine Color Urine Clarity Urine pH Ur Specific [place] Urine Protein Urine Glucose (UA) Urine Ketones Urine Blood Urine Nitrate Urine Bilirubin Urine Urobilinogen Ur Leukocyte Esterase Urine WBC (Auto) Urine RBC (Auto) Ur Squamous Epith Cells Urine Bacteria Stool Occult Blood Blood Type Antibody Screen Assessment & Plan (1) Abnormal LFTs Assessment and Plan: Chr liver disease- cirrhosis. Consider due to ETOH. Check hep profile, NH3 Status: Acute (2) Pancytopenia Assessment and Plan: COnsider due to met cancer, chemo, chr disease. Status: Acute (3) Anemia Assessment and Plan: May be related to breast CA, mets, cirrhosis. But Hb is less than before and is g pos. REC: Check Hb, PPI. DIscuss over all condition with Medical team and Dr Robert, check past GI w/u, then consider EGD. Status: Acute (4) Atrial fibrillation Assessment and Plan: Check if on anticoagulation Status: Acute (5) Hypothyroidism Status: Acute (6) Pacemaker Status: Acute (7) Breast CA Status: Chronic Priority: Medium (8) Glaucoma Status: Acute
[2018-04-06] MEDS ORDERED: Sodium Chloride 0.9% 1,000 ML IV SCH (10:15)
[2018-04-06] MEDS ORDERED: MethylPREDNISolone 40 mg Vial IVP STA (14:12)
[2018-04-06] MEDS ORDERED: Albuterol-Ipratrop 3 mg / 0.5 (3 ml) UD INH STA (14:14)
--- NOTE | 2018-04-06 14:28 | CT ---
CT chest History: Chest pain. Comparison: None available. Technique: Multiple contiguous axial images were performed through the chest without the use of intravenous contrast. Subsequently, sagittal and coronal reformatted images were obtained. This CT exam was performed using one or more of the following dose reduction techniques: Automated exposure control, adjustment of the mA and/or kV according to patient size, and/or use of iterative reconstruction technique. Findings: Pulmonary nodule measuring 4 millimeters in the right upper lobe on series 3, image 48. Punctate 1 millimeter pulmonary nodule/granuloma at the right middle lobe on series 3, image 60. Atelectasis with a few punctate nodular densities seen more inferiorly within the anterior aspect of the right middle lobe on series 3, image 66. Right basilar atelectatic changes. 2 millimeter pulmonary nodule within the right lower lobe on series 3, image 59. 6 millimeter subpleural calcified granuloma within the right lower lobe on series 3, image 50. 4 millimeter pulmonary nodule within the left upper lobe anteriorly on series 3, image 44. Left basilar atelectasis. 7 millimeter focal area of nodular consolidation within the left lower lobe posterior laterally. Trachea thru central airways are patent. No gross pleural effusion. Atherosclerotic calcification and ectasia of the aorta. Moderate atherosclerotic calcification the coronary arteries. Lymphadenopathy noted in the upper abdomen in the para-aortic regions and at the level of the renal hilum and celiac axis measuring up to 4 centimeters. Nodular contour to the liver with hypertrophy of the caudate lobe suggestive for cirrhosis. Perihepatic fluid present. Punctate calcifications within the right hepatic lobe. Few scattered hypodensities in the liver, too small to adequately characterize. These may be better evaluated with multiphasic CT. Nodular thickening of the adrenal glands. Left adrenal gland is not well delineated given the adjacent prominent lymphadenopathy. Cholelithiasis. Punctate calcifications in the spleen suggestive for remote granulomatous exposure. Multiple low-attenuation lesions in the kidneys bilaterally. These may represent cysts however additional etiologies are not excluded. Additional 6 millimeter hyperdense lesion seen in the midpole of the left kidney, too small to adequately characterize. Extensive sclerosis throughout the visualized osseous structures concerning for metastatic disease. On the lateral view, there is a suggestion of a prominent compression fracture/compression deformity of a lumbar vertebral body, indeterminate chronicity, which is incompletely visualized on this study. Correlation with lumbar spine MRI is recommended for further evaluation if clinically indicated. In addition, there is mild loss of height of the superior endplate of a mid to lower thoracic vertebral body. Cardiac pacing device/AICD in place. Some soft tissue prominence noted within the lateral aspect of the right breast on series 4, image 64. Correlation with mammography would be helpful for further evaluation if clinically indicated. Impression: Metastatic disease to the skeleton. On the lateral view, there is a suggestion of a prominent compression fracture/compression deformity of a lumbar vertebral body, indeterminate chronicity, which is incompletely visualized on this study. Correlation with lumbar spine MRI is recommended for further evaluation if clinically indicated. In addition, there is mild loss of height of the superior endplate of a mid to lower thoracic vertebral body. Cirrhotic liver with portal hypertension. Cholelithiasis. Prominent bulky adenopathy within the upper abdomen. Metastatic disease cannot be excluded. Correlation with PET CT scan may be helpful if clinically indicated. Indeterminate nodules in the lungs. Again correlation with PET CT scan may be helpful if clinically indicated. Additional findings as above. These findings were preliminarily reported at 7:30 p.m. on 04/05/[address] Billy Zhao from [facility].
--- NOTE | 2018-04-06 17:45 | US ---
Abdominal ultrasound History: Abdominal pain. Thrombocytopenia. Liver disease. Comparison: None available. Technique: Real-time sonography was performed through the abdomen. Findings: Liver: 14 centimeters in length. Increased echogenicity of the hepatic parenchymal cortex suggestive for hepatic parenchymal disease versus fatty infiltration. Nodular and cirrhotic contour of the liver. Reversal of flow within the portal vein concerning for portal hypertension. Perihepatic ascites. Gallbladder: Cholelithiasis. Gallbladder wall appears thickened up to 4 millimeters. Associated gallbladder wall edema. Negative sonographic Nunez's sign. Common bile duct measures 6 millimeters, mildly prominent. Pancreas not well visualized. Spleen measures 10.7 centimeters length. Splenic calcifications noted. Limited visualization of the aorta and IVC. Increased echogenicity of the bilateral renal parenchymal cortices suggestive for medical renal disease. Atrophic kidneys. Right kidney: 9.3 x 4.9 x 5.3 centimeters. Multiple cysts; for example, mid to upper pole hypoechoic cyst measuring 1.8 x 1.5 x 1.4 centimeters. Lower pole hypoechoic cyst measuring 1.6 x 1.3 x 1.5 centimeters. No calculi or hydronephrosis. Left kidney: 7.1 x 3.6 x 3.3 centimeters. No calculi or hydronephrosis. Multiple cysts; for example, midpole hypoechoic cyst measuring 2.0 x 2.0 x 2.1 centimeters and mid to lower pole hypoechoic cyst measuring 1.8 x 1.9 x 2.1 centimeters with some internal peripheral nodularity. Urinary bladder is underdistended. Ascites throughout the abdomen. Impression: 1. Increased echogenicity of the hepatic parenchymal cortex suggestive for hepatic parenchymal disease versus fatty infiltration. Nodular and cirrhotic contour of the liver. Reversal of flow within the portal vein concerning for portal hypertension. Perihepatic ascites. 2.Cholelithiasis. Gallbladder wall appears thickened up to 4 millimeters. Associated gallbladder wall edema. Negative sonographic Nunez's sign. 3. Common bile duct measures 6 millimeters, mildly prominent. 4. Pancreas not well visualized. 5. Limited visualization of the aorta and IVC. 6. Increased echogenicity of the bilateral renal parenchymal cortices suggestive for medical renal disease. Atrophic kidneys. Bilateral renal cysts. 7. Urinary bladder is underdistended. Limiting evaluation. 8. Ascites throughout the abdomen.
--- NOTE | 2018-04-06 17:46 | US ---
Renal ultrasound History: Abdominal pain. Thrombocytopenia. Liver disease. Comparison: None available. Technique: Real-time sonography was performed through the kidneys. Findings: Limited visualization of the aorta and IVC. Increased echogenicity of the bilateral renal parenchymal cortices suggestive for medical renal disease. Atrophic kidneys. Right kidney: 9.3 x 4.9 x 5.3 centimeters. Multiple cysts; for example, mid to upper pole hypoechoic cyst measuring 1.8 x 1.5 x 1.4 centimeters. Lower pole hypoechoic cyst measuring 1.6 x 1.3 x 1.5 centimeters. No calculi or hydronephrosis. Left kidney: 7.1 x 3.6 x 3.3 centimeters. No calculi or hydronephrosis. Multiple cysts; for example, midpole hypoechoic cyst measuring 2.0 x 2.0 x 2.1 centimeters and mid to lower pole hypoechoic cyst measuring 1.8 x 1.9 x 2.1 centimeters with some internal peripheral nodularity. Urinary bladder is underdistended. Ascites throughout the abdomen. Impression: 1. Limited visualization of the aorta and IVC. 2. Increased echogenicity of the bilateral renal parenchymal cortices suggestive for medical renal disease. Atrophic kidneys. Bilateral renal cysts as described above. 3. Urinary bladder is underdistended. Limiting evaluation. 4. Ascites throughout the abdomen.
[2018-04-06 19:24] LABS: BASO % 0.6 % (0.0-2.0); EOS # 0.1 K/uL (0.0-0.7); EOS % 1.6 % (0.0-4.0); HEMOGLOBIN 9.7 g/dL (11.0-16.0); LYMPH % 34.1 % (20.0-40.0); MEAN CELL VOLUME 92.5 fL (81.0-99.0); MEAN CORPUSCULAR HEMOGLOBIN 32.4 pg (27.0-31.0); MEAN PLATELET VOLUME 7.5 fL (7.2-11.7); MONO # 0.1 K/uL (0.0-0.8); MONO % 3.8 % (0.0-10.0); NEUT # 1.8 K/uL (1.8-7.0); NEUT % 59.9 % (50.0-75.0); NRBC % 0.5 % (0.0-2.0); RBC 2.99 Mil/uL (3.80-5.20)
--- NOTE | 2018-04-06 22:06 | CP.PCM.CON ---
History of Present Illness - History of Present Illness History of Present Illness: Patient is a 83 year old female with past medical history of anemia, atrial fibrillation, CHF, COPD HTN, hypothyroidism, breast cancer s/p mastectomy now on chemo presenting with chief complaint of weakness and swelling of the face which began about 3 days prior. History was obtained with help of daughter who was at beside. Patient has history of anemia and has received several transfusions in the past. Patient also admits to epigastric discomfort that is accompanied by shortness of breath. Patient denies any changes in diet or medications. Denies trauma, falls, headache, dizziness, chest pain, changes in bowel movements, dysuria. Past medical history: anemia, anxiety, arthritis, atrial fibrillation, CHF, COPD , cholelithiasis, HTN, hypothyroidism, malignancy (breast) Past surgical history: mastectomy (2016), pacemaker (2010), left hip surgery Social history: 5 cans of beer per day past 20 years. 2 cigarettes per week past 20 years. Denies recreational drug use. Allergies: NKDA PMD: Dr. Gonzales Pharmacy: [facility] Present on Admission - Present on Admission Any Indicators Present on Admission: No Review of Systems - Constitutional Constitutional: absent: Chills, Fever, Frequent Falls - EENT Eyes: absent: Change in Vision Nose/Mouth/Throat: absent: Sore Throat Additional comments: Admits to facial swelling. - Cardiovascular Cardiovascular: absent: Leg Edema, Palpitations, Syncope - Respiratory Respiratory: absent: Cough, Hemoptysis - Gastrointestinal Gastrointestinal: Abdominal Pain. absent: Change in Bowel Habits, Nausea, Vomiting - Genitourinary Genitourinary: absent: Dysuria - Musculoskeletal Musculoskeletal: Arthralgias - Neurological Neurological: absent: Abnormal Gait, Numbness, Headaches Physical Exam - Constitutional Appears: Non-toxic, No Acute Distress - Head Exam Head Exam: ATRAUMATIC, NORMOCEPHALIC - Eye Exam Eye Exam: Normal appearance Additional comments: Left orbital prosthesis - ENT Exam ENT Exam: Mucous Membranes Dry, Normal External Ear Exam - Neck Exam Neck exam: Positive for: Normal Inspection - Respiratory Exam Respiratory Exam: Clear to Auscultation Bilateral, NORMAL BREATHING PATTERN. absent: Respiratory Distress - Cardiovascular Exam Cardiovascular Exam: REGULAR RHYTHM, +S1, +S2 - GI/Abdominal Exam GI & Abdominal Exam: Normal Bowel Sounds, Soft. absent: Distended, Firm, Guarding, Rebound, Rigid, Tenderness - Extremities Exam Extremities exam: Positive for: calf tenderness, pedal pulses present. Negative for: pedal edema - Back Exam Back exam: NORMAL INSPECTION - Neurological Exam Neurological exam: Alert, CN II-XII Intact, Oriented x3 - Psychiatric Exam Psychiatric exam: Normal Affect, Normal Mood - Skin Skin Exam: Dry, Intact, Normal Color Past Patient History - Infectious Disease Hx of Infectious Diseases: None - Tetanus Immunizations Tetanus Immunization: Unknown - Past Medical History & Family History Past Medical History?: Yes - Past Social History Smoking Status: Former Smoker - CARDIAC Hx Atrial Fibrillation: Yes Hx Cardia Arrhythmia: Yes (ATRIAL FIB) Hx Congestive Heart Failure: Yes Hx Hypertension: Yes Hx Pacemaker: Yes (left side) - PULMONARY Hx Chronic Obstructive Pulmonary Disease (COPD): Yes - NEUROLOGICAL Hx Neurological Disorder: No - HEENT Hx HEENT Problems: Yes Hx Blind: Yes (ARTIFICIAL LEFT EYE, right eye blind) Hx Glaucoma: Yes (right eye) - RENAL Hx Chronic Kidney Disease: No - ENDOCRINE/METABOLIC Hx Hypothyroidism: Yes - HEMATOLOGICAL/ONCOLOGICAL Hx Anemia: Yes - INTEGUMENTARY Hx Dermatological Problems: No - MUSCULOSKELETAL/RHEUMATOLOGICAL Hx Arthritis: Yes (B/L KNEES ; BACK PAIN) Hx Fractures: Yes (left hip 10 years ago) - GASTROINTESTINAL Hx Gall Bladder Disease: Yes (GALLSTONES) - GENITOURINARY/GYNECOLOGICAL Hx Genitourinary Disorders: Yes (URINARY FREQUENCY) - PSYCHIATRIC Hx Anxiety: Yes Hx Substance Use: No - SURGICAL HISTORY Hx Surgeries: Yes Hx Breast Biopsy: Yes Hx Cardiac Catheterization: Yes Hx Eye Surgery: Yes (left eye) Hx Hysterectomy: Yes (4o years ago) Hx Mastectomy: Yes (left 08/25/16) Hx Orthopedic Surgery: Yes (left hip 10 yrs ago) - ANESTHESIA Hx Anesthesia: Yes Hx Anesthesia Reactions: No Hx Malignant Hyperthermia: No Meds Allergies/Adverse Reactions: Allergies Allergy/AdvReac Type Severity Reaction Status Date / Time No Known Allergies Allergy Verified 04/05/18 18:07 - Medications Medications: Current Medications Albuterol/Ipratropium (Duoneb 3 Mg/0.5 Mg (3 Ml) Ud) 3 ml INH RQ6 PRN PRN Reason: Shortness of Breath Pantoprazole Sodium (Protonix Inj) 40 mg IVP Q12 WILLIAM Last Admin: 04/06/18 21:45 Dose: 40 mg Pneumococcal Polyvalent Vaccine (Pneumovax 23 Vaccine) 0.5 ml IM .ONCE ONE Stop: 04/08/18 10:01 Results - Vital Signs Recent Vital Signs: Last Vital Signs Temp 98 F 04/06/18 16:00 Pulse 84 04/06/18 16:00 Resp 20 04/06/18 16:00 BP 149/77 04/06/18 16:00 Pulse Ox 97 04/06/18 16:00 - Labs Result Diagrams: 04/07/18 19:32 04/07/18 08:58 Labs: Laboratory Results - last 24 hr 04/05/18 04/05/18 04/06/18 20:08 22:25 02:53 WBC RBC Hgb Hct MCV MCH MCHC RDW Plt Count MPV Neut % (Auto) Lymph % (Auto) [place] % (Auto) Eos % (Auto) Baso % (Auto) Neut # (Auto) Lymph # (Auto) [place] # (Auto) Eos # (Auto) Baso # (Auto) Differential Comment Retic Count Sodium Potassium Chloride Carbon Dioxide Anion Gap BUN Creatinine Est GFR ( Amer) Est GFR (Non-Af Amer) Random Glucose Calcium Iron 194 H TIBC 262 % Saturation 74 H Ferritin Total Bilirubin AST ALT Alkaline Phosphatase Total Creatine Kinase 54 CK-MB (Mass) < 0.22 Troponin I < 0.0120 Total Protein Albumin Globulin Albumin/Globulin Ratio Vitamin B12 Folate Blood Type O POSITIVE Antibody Screen Negative 04/06/18 04/06/18 04/06/18 07:51 07:51 07:51 WBC 3.1 L RBC 2.34 L Hgb 7.7 L Hct 22.5 L MCV 96.3 D MCH 33.0 H MCHC 34.3 RDW 18.6 H Plt Count 84 L MPV 7.9 Neut % (Auto) 45.8 L Lymph % (Auto) 39.0 [place] % (Auto) 11.4 H Eos % (Auto) 2.8 Baso % (Auto) 1.0 Neut # (Auto) 1.4 L Lymph # (Auto) 1.2 [place] # (Auto) 0.4 Eos # (Auto) 0.1 Baso # (Auto) 0.0 Differential Comment Retic Count 3.0 H D Sodium 139 Potassium 4.7 Chloride 107 Carbon Dioxide 25 Anion Gap 13 BUN 59 H Creatinine 1.8 H Est GFR ( Amer) 33 Est GFR (Non-Af Amer) 27 Random Glucose 88 Calcium 9.1 Iron TIBC % Saturation Ferritin 528.0 Total Bilirubin 1.5 H AST 191 H ALT 106 H Alkaline Phosphatase 567 H Total Creatine Kinase CK-MB (Mass) Troponin I Total Protein 6.0 L Albumin 3.0 L Globulin 3.0 Albumin/Globulin Ratio 1.0 Vitamin B12 > 1000 H Folate > 20.0 Blood Type Antibody Screen 04/06/18 04/06/18 07:51 19:16 WBC 3.0 L RBC 2.99 L Hgb 9.7 L D Hct 27.6 L MCV 92.5 D MCH 32.4 H MCHC 35.0 RDW 20.0 H Plt Count 83 L MPV 7.5 Neut % (Auto) 59.9 Lymph % (Auto) 34.1 [place] % (Auto) 3.8 Eos % (Auto) 1.6 Baso % (Auto) 0.6 Neut # (Auto) 1.8 Lymph # (Auto) 1.0 [place] # (Auto) 0.1 Eos # (Auto) 0.1 Baso # (Auto) 0.0 Differential Comment Retic Count Sodium Potassium Chloride Carbon Dioxide Anion Gap BUN Creatinine Est GFR ( Amer) Est GFR (Non-Af Amer) Random Glucose Calcium Iron TIBC % Saturation Ferritin Total Bilirubin AST ALT Alkaline Phosphatase Total Creatine Kinase 56 CK-MB (Mass) < 0.22 Troponin I < 0.0120 Total Protein Albumin Globulin Albumin/Globulin Ratio Vitamin B12 Folate Blood Type Antibody Screen Assessment & Plan - Assessment and Plan (Free Text) Assessment: 83 yo F w/ PMHx anemia, a. fib, CHF, COPD, HTN, hypothyroidism, breast ca s/p left breast mastectomy admitted w/ weakness and SOB 2/2 to anemia. Acute blood loss Anemia -hgb 9.9 today -s/p 2U PRBC(04/05, 04/06) -FOB + (04/05) -protonix 40mg IVP q12 -GI consult Dr. Munguia/Douglas -heme/onc consult Dr. Fountaingal Pancytopenia -breast ca w/ left sided mastectomy(2015), chemo hx unknown -Tamoxifen Acute Renal Failure -improving, Cr 2.1-->1.6 from admission -renal US(04/06) shows B/L atrophic kidneys, renal cysts, increased echogenicity of renal parenchymal cortices suggestive of medical renal disease. Abd ascites -Nephro consult Dr. Saravia Elevated liver enzymes -worsening alk phos, ast, alt. Tbil up 1.1-->2.2 on admission -abd US(04/06) shows possible hepatic parenchymal disease vd fatty infiltration, nodular/cirrhotic liver contour, blood flow reversal w/in portal vein suggestive of portal HTN. CBD ductal dilitation ~6mm, cholelithiasis, GBW thickening~4mm + edema, abd ascites. CHF -f/u echo A. Fib -holding home ASA 81mg due to GI bleed COPD -duonebs q6 PRN Blindness -glaucoma R eye -L eye blown out? Ppx -DVT ppx contraindicated, acute GI bleed -protonix 40mg q12
--- NOTE | 2018-04-06 23:38 | CP.PCM.CON ---
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 w/ pmh of htn, CHF, s/p PPM, COPD, hypothyroidism, breast CA s/p mastectomy, on chemo, presented with complaint of weakness and facial swelling, nephrology being consulted for acute kidney injury; Per patient, her only reason for presentation was pain around pacemaker site; she denies any associated dyspnea or palpitaions; she otherwise reports being in her usual state of health; at baseline, she does not ambulate; she reports good appetite, denies nausea, vomiting or diarrhea; denies any dysuria or other urinary complaint; Review of Systems - Constitutional Constitutional: absent: Anorexia, Chills, Fever - EENT Eyes: As Per HPI Nose/Mouth/Throat: absent: Nasal Discharge, Dysphagia - Cardiovascular Cardiovascular: As Per HPI. absent: Leg Edema - Respiratory Respiratory: absent: Dyspnea - Gastrointestinal Gastrointestinal: As Per HPI - Genitourinary Genitourinary: As Per HPI - Musculoskeletal Musculoskeletal: absent: Arthralgias, Back Pain - Integumentary Integumentary: absent: Pruritus - Neurological Neurological: absent: Headaches Past Patient History - Infectious Disease Hx of Infectious Diseases: None - Tetanus Immunizations Tetanus Immunization: Unknown - Past Medical History & Family History Past Medical History?: Yes - Past Social History Smoking Status: Former Smoker - CARDIAC Hx Atrial Fibrillation: Yes Hx Cardia Arrhythmia: Yes (ATRIAL FIB) Hx Congestive Heart Failure: Yes Hx Hypertension: Yes Hx Pacemaker: Yes (left side) - PULMONARY Hx Chronic Obstructive Pulmonary Disease (COPD): Yes - NEUROLOGICAL Hx Neurological Disorder: No - HEENT Hx HEENT Problems: Yes Hx Blind: Yes (ARTIFICIAL LEFT EYE, right eye blind) Hx Glaucoma: Yes (right eye) - RENAL Hx Chronic Kidney Disease: No - ENDOCRINE/METABOLIC Hx Hypothyroidism: Yes - HEMATOLOGICAL/ONCOLOGICAL Hx Anemia: Yes - INTEGUMENTARY Hx Dermatological Problems: No - MUSCULOSKELETAL/RHEUMATOLOGICAL Hx Arthritis: Yes (B/L KNEES ; BACK PAIN) Hx Fractures: Yes (left hip 10 years ago) - GASTROINTESTINAL Hx Gall Bladder Disease: Yes (GALLSTONES) - GENITOURINARY/GYNECOLOGICAL Hx Genitourinary Disorders: Yes (URINARY FREQUENCY) - PSYCHIATRIC Hx Anxiety: Yes Hx Substance Use: No - SURGICAL HISTORY Hx Surgeries: Yes Hx Breast Biopsy: Yes Hx Cardiac Catheterization: Yes Hx Eye Surgery: Yes (left eye) Hx Hysterectomy: Yes (4o years ago) Hx Mastectomy: Yes (left 08/25/16) Hx Orthopedic Surgery: Yes (left hip 10 yrs ago) - ANESTHESIA Hx Anesthesia: Yes Hx Anesthesia Reactions: No Hx Malignant Hyperthermia: No Meds Allergies/Adverse Reactions: Allergies Allergy/AdvReac Type Severity Reaction Status Date / Time No Known Allergies Allergy Verified 04/05/18 18:07 - Medications Medications: Current Medications Albuterol/Ipratropium (Duoneb 3 Mg/0.5 Mg (3 Ml) Ud) 3 ml INH RQ6 PRN PRN Reason: Shortness of Breath Pantoprazole Sodium (Protonix Inj) 40 mg IVP Q12 WILLIAM Last Admin: 04/06/18 21:45 Dose: 40 mg Pneumococcal Polyvalent Vaccine (Pneumovax 23 Vaccine) 0.5 ml IM .ONCE ONE Stop: 04/08/18 10:01 Physical Exam - Constitutional Appears: Non-toxic, No Acute Distress - Eye Exam Eye Exam: absent: Scleral icterus - ENT Exam ENT Exam: Mucous Membranes Moist - Neck Exam Neck exam: Positive for: Normal Inspection. Negative for: Lymphadenopathy - Respiratory Exam Respiratory Exam: Clear to Auscultation Bilateral. absent: Rales, Rhonchi, Wheezes, Respiratory Distress - Cardiovascular Exam Cardiovascular Exam: RRR, +S1, +S2 - GI/Abdominal Exam GI & Abdominal Exam: Soft. absent: Distended, Tenderness - Exam Exam: absent: Bladder Distension - Extremities Exam Additional comments: no leg edema; - Neurological Exam Neurological exam: Alert Additional comments: no resting tremor - Psychiatric Exam Psychiatric exam: Normal Affect, Normal Mood - Skin Skin Exam: Normal Color, Warm Results - Vital Signs Recent Vital Signs: Last Vital Signs Temp 98 F 04/06/18 16:00 Pulse 84 04/06/18 16:00 Resp 20 04/06/18 16:00 BP 149/77 04/06/18 16:00 Pulse Ox 97 04/06/18 16:00 - Labs Result Diagrams: 04/06/18 19:16 04/06/18 07:51 Labs: Laboratory Results - last 24 hr 04/05/18 04/06/18 04/06/18 20:08 02:53 07:51 WBC RBC Hgb Hct MCV MCH MCHC RDW Plt Count MPV Neut % (Auto) Lymph % (Auto) [place] % (Auto) Eos % (Auto) Baso % (Auto) Neut # (Auto) Lymph # (Auto) [place] # (Auto) Eos # (Auto) Baso # (Auto) Differential Comment Retic Count Sodium 139 Potassium 4.7 Chloride 107 Carbon Dioxide 25 Anion Gap 13 BUN 59 H Creatinine 1.8 H Est GFR ( Amer) 33 Est GFR (Non-Af Amer) 27 Random Glucose 88 Calcium 9.1 Ferritin 528.0 Total Bilirubin 1.5 H AST 191 H ALT 106 H Alkaline Phosphatase 567 H Total Creatine Kinase 54 CK-MB (Mass) < 0.22 Troponin I < 0.0120 Total Protein 6.0 L Albumin 3.0 L Globulin 3.0 Albumin/Globulin Ratio 1.0 Vitamin B12 > 1000 H Folate > 20.0 Blood Type O POSITIVE Antibody Screen Negative 04/06/18 04/06/18 04/06/18 07:51 07:51 07:51 WBC 3.1 L RBC 2.34 L Hgb 7.7 L Hct 22.5 L MCV 96.3 D MCH 33.0 H MCHC 34.3 RDW 18.6 H Plt Count 84 L MPV 7.9 Neut % (Auto) 45.8 L Lymph % (Auto) 39.0 [place] % (Auto) 11.4 H Eos % (Auto) 2.8 Baso % (Auto) 1.0 Neut # (Auto) 1.4 L Lymph # (Auto) 1.2 [place] # (Auto) 0.4 Eos # (Auto) 0.1 Baso # (Auto) 0.0 Differential Comment Retic Count 3.0 H D Sodium Potassium Chloride Carbon Dioxide Anion Gap BUN Creatinine Est GFR ( Amer) Est GFR (Non-Af Amer) Random Glucose Calcium Ferritin Total Bilirubin AST ALT Alkaline Phosphatase Total Creatine Kinase 56 CK-MB (Mass) < 0.22 Troponin I < 0.0120 Total Protein Albumin Globulin Albumin/Globulin Ratio Vitamin B12 Folate Blood Type Antibody Screen 04/06/18 19:16 WBC 3.0 L RBC 2.99 L Hgb 9.7 L D Hct 27.6 L MCV 92.5 D MCH 32.4 H MCHC 35.0 RDW 20.0 H Plt Count 83 L MPV 7.5 Neut % (Auto) 59.9 Lymph % (Auto) 34.1 [place] % (Auto) 3.8 Eos % (Auto) 1.6 Baso % (Auto) 0.6 Neut # (Auto) 1.8 Lymph # (Auto) 1.0 [place] # (Auto) 0.1 Eos # (Auto) 0.1 Baso # (Auto) 0.0 Differential Comment Retic Count Sodium Potassium Chloride Carbon Dioxide Anion Gap BUN Creatinine Est GFR ( Amer) Est GFR (Non-Af Amer) Random Glucose Calcium Ferritin Total Bilirubin AST ALT Alkaline Phosphatase Total Creatine Kinase CK-MB (Mass) Troponin I Total Protein Albumin Globulin Albumin/Globulin Ratio Vitamin B12 Folate Blood Type Antibody Screen - Imaging and Cardiology US - abdomen Status: Image reviewed by me Additional comment: increased renal echogenicity b/l Assessment & Plan (1) Acute kidney injury Assessment and Plan: Etiology unclear; review of outpatient labs shows serum creatinine increase from 1.2 in December 2017 to 2.0 in January 2018; currently UA with negative albuminuria ; patient was on diuretic at home with lasix 20 mg daily as well as losartan 25 mg daily per PMD records; unclear which chemo regimen she had been receiving for breast CA; furthermore, renal US consistent with some degree of CKD; -obtaining random urine for total protein and creatinine; -checking urine lytes; -agree with holding losartan for now; diuretic as needed; -avoid nephrotoxic agents (ie. NSAIDS, phosphate enema); Status: Acute (2) Anemia Assessment and Plan: Anemia of chronic disease, perhaps worsened by CKD; responding appropriately to 2u prbc transfusion; if oncology is agreeable, should be started on EPO to reduce future transfusion requirement; Status: Acute (3) CHF (congestive heart failure) Assessment and Plan: Mild systolic dysfunction on echo from 2016; otherwise appears euvolemic on exam ; had been on low dose coreg and losartan per PMD records; should continue with coreg and hold losartan for now; Status: Chronic (4) HTN (hypertension) Assessment and Plan: BP controlled off anti-htn agents; had been on coreg 3.125 mg bid, cardizem CD 120 mg daily, losartan 25 mg daily and lasix 20 mg daily at home; -f/u with cardiology regarding rate control meds; hold ARB and diuretics for now ; Status: Chronic
[2018-04-07 03:20] LABS: CREATININE, RANDOM URINE 10.1 mg/dL
[2018-04-07 08:26] LABS: HEPATITIS B SURFACE AG Negative (NEGATIVE)
[2018-04-07 08:32] LABS: HEPATITIS A IGM NEGATIVE (NEGATIVE); HEPATITIS B CORE AB NEGATIVE (NEGATIVE)
[2018-04-07 08:42] LABS: HEPATITIS C ANTIBODY NEGATIVE (NEGATIVE)
--- NOTE | 2018-04-07 08:43 | CP.PCM.PN ---
Subjective - Date & Time of Evaluation Date of Evaluation: 04/07/18 Time of Evaluation: 08:30 - Subjective Subjective: F/u anemia Denies abdom pain, fever, chills, SZ, loc GR cough, RB.,Melena, hematemesis Objective - Vital Signs/Intake and Output Vital Signs (last 24 hours): Temp Pulse Resp BP Pulse Ox 97.5 F L 89 20 149/75 97 04/07/18 08:08 04/07/18 08:08 04/07/18 08:08 04/07/18 08:08 04/07/18 08:08 Intake and Output: 04/07/18 04/07/18 06:59 18:59 Intake Total 350 300 Balance 350 300 - Medications Medications: Current Medications Albuterol/Ipratropium (Duoneb 3 Mg/0.5 Mg (3 Ml) Ud) 3 ml INH RQ6 PRN PRN Reason: Shortness of Breath Pantoprazole Sodium (Protonix Inj) 40 mg IVP Q12 WILLIAM Last Admin: 04/06/18 21:45 Dose: 40 mg Pneumococcal Polyvalent Vaccine (Pneumovax 23 Vaccine) 0.5 ml IM .ONCE ONE Stop: 04/08/18 10:01 - Labs Labs: 04/06/18 19:16 04/06/18 07:51 PT 13.5 SECONDS (9.7-12.2) H 04/05/18 18:45 INR 1.2 04/05/18 18:45 APTT 35 SECONDS (21-34) H 04/05/18 18:45 - Constitutional Appears: Well - Respiratory Exam Respiratory Exam: Clear to Ausculation Bilateral - Cardiovascular Exam Cardiovascular Exam: RRR - GI/Abdominal Exam GI & Abdominal Exam: Soft, Normal Bowel Sounds. absent: Guarding, Tenderness, Mass - Extremities Exam Extremities Exam: Pedal Edema - Neurological Exam Neurological Exam: Alert, Awake. absent: Oriented x3 Assessment and Plan (1) Abnormal LFTs Assessment & Plan: Consider cirrhosis. Low PLTs. h/o ETOH Check NH3, AFP, hep profile Status: Acute (2) Pancytopenia Status: Acute (3) Anemia Assessment & Plan: Chr dis, renal. Status: Acute (4) Atrial fibrillation Status: Chronic (5) Hypothyroidism Status: Chronic (6) Pacemaker Status: Acute (7) Breast CA Assessment & Plan: Check status. h/o breast CA and mets.. Status: Chronic (8) Glaucoma Status: Chronic (9) Cholelithiases Assessment & Plan: Doubt cholecystitis. Status: Acute (10) Ascites Assessment & Plan: Consider due to metastatic dis or cirrhosis. Status: Acute
--- NOTE | 2018-04-07 09:05 | CP.PCM.PN ---
<Ileana Dove - Last Filed: 04/07/18 11:40> Subjective - Date & Time of Evaluation Date of Evaluation: 04/07/18 Time of Evaluation: 09:16 - Subjective Subjective: Pt examined at bedside. No acute events overnight. Pt reports she has not been eating well because she has no appetite. Pt denies chest pain, SOB, abd pain, nausea, diarrhea. Pt reports last formed BM this morning. Objective - Vital Signs/Intake and Output Vital Signs (last 24 hours): Temp Pulse Resp BP Pulse Ox 97.5 F L 89 20 149/75 97 04/07/18 08:08 04/07/18 08:08 04/07/18 08:08 04/07/18 08:08 04/07/18 08:08 Intake and Output: 04/07/18 04/07/18 06:59 18:59 Intake Total 350 300 Balance 350 300 - Medications Medications: Current Medications Albuterol/Ipratropium (Duoneb 3 Mg/0.5 Mg (3 Ml) Ud) 3 ml INH RQ6 PRN PRN Reason: Shortness of Breath Pantoprazole Sodium (Protonix Inj) 40 mg IVP Q12 WILLIAM Last Admin: 04/06/18 21:45 Dose: 40 mg Pneumococcal Polyvalent Vaccine (Pneumovax 23 Vaccine) 0.5 ml IM .ONCE ONE Stop: 04/08/18 10:01 - Labs Labs: 04/06/18 19:16 04/06/18 07:51 PT 13.5 SECONDS (9.7-12.2) H 04/05/18 18:45 INR 1.2 04/05/18 18:45 APTT 35 SECONDS (21-34) H 04/05/18 18:45 - Constitutional Appears: Non-toxic, No Acute Distress - Head Exam Head Exam: ATRAUMATIC, NORMAL INSPECTION, NORMOCEPHALIC - ENT Exam ENT Exam: Mucous Membranes Moist, Normal Exam - Neck Exam Neck Exam: Normal Inspection. absent: Lymphadenopathy - Respiratory Exam Respiratory Exam: Clear to Ausculation Bilateral, NORMAL BREATHING PATTERN. absent: Accessory Muscle Use, Rhonchi, Wheezes - Cardiovascular Exam Cardiovascular Exam: Tachycardia, REGULAR RHYTHM, +S1, +S2. absent: Murmur - GI/Abdominal Exam GI & Abdominal Exam: Soft, Normal Bowel Sounds. absent: Distended, Tenderness - Extremities Exam Extremities Exam: Normal Capillary Refill, Normal Inspection, Pedal Edema (1+ pitting edema B/L). absent: Calf Tenderness - Neurological Exam Neurological Exam: Alert, Awake Additional comments: Left hand muscle wasting - Psychiatric Exam Psychiatric exam: Normal Affect, Normal Mood - Skin Skin Exam: Dry, Intact, Normal Color (ecchymoses noted UE), Warm Assessment and Plan - Assessment and Plan (Free Text) Assessment: 83 yo F w/ PMHx anemia, a. fib, CHF, COPD, HTN, hypothyroidism, breast ca s/p left breast mastectomy admitted w/ weakness and SOB 2/2 to anemia. Acute blood loss Anemia -hgb 9.9 today -s/p 2U PRBC(04/05, 04/06) -FOB + (04/05) -protonix 40mg IVP q12 -GI consult Dr. Munguia/Douglas -heme/onc consult Dr. Fountaingal Pancytopenia -breast ca w/ left sided mastectomy(2015), chemo hx unknown -Tamoxifen Acute Renal Failure -improving, Cr 2.1-->1.6 from admission -renal US(04/06) shows B/L atrophic kidneys, renal cysts, increased echogenicity of renal parenchymal cortices suggestive of medical renal disease. Abd ascites -Nephro consult Dr. Saravia Elevated liver enzymes -worsening alk phos, ast, alt. Tbil up 1.1-->2.2 on admission -abd US(04/06) shows possible hepatic parenchymal disease vd fatty infiltration, nodular/cirrhotic liver contour, blood flow reversal w/in portal vein suggestive of portal HTN. CBD ductal dilitation ~6mm, cholelithiasis, GBW thickening~4mm + edema, abd ascites. CHF -f/u echo -cardio consult Dr. Jordan Lay Fib -holding home ASA 81mg due to GI bleed COPD -duonebs q6 PRN Blindness -glaucoma R eye -L eye blown out? Ppx -DVT ppx contraindicated, acute GI bleed -protonix 40mg q12 <Georgia Crocker V - Last Filed: 04/07/18 18:05> Objective - Vital Signs/Intake and Output Vital Signs (last 24 hours): Temp Pulse Resp BP Pulse Ox 97.7 F 101 H 20 137/83 96 08/19/18 16:13 04/07/18 16:13 04/07/18 16:13 04/07/18 16:13 04/07/18 16:13 Intake and Output: 04/07/18 04/07/18 06:59 18:59 Intake Total 350 750 Balance 350 750 - Medications Medications: Current Medications Albuterol/Ipratropium (Duoneb 3 Mg/0.5 Mg (3 Ml) Ud) 3 ml INH RQ6 PRN PRN Reason: Shortness of Breath Pantoprazole Sodium (Protonix Inj) 40 mg IVP Q12 WILLIAM Last Admin: 04/07/18 09:53 Dose: 40 mg Pneumococcal Polyvalent Vaccine (Pneumovax 23 Vaccine) 0.5 ml IM .ONCE ONE Stop: 04/08/18 10:01 Temazepam (Restoril) 15 mg PO HS WILLIAM - Labs Labs: 04/07/18 13:51 04/07/18 08:58 PT 13.5 SECONDS (9.7-12.2) H 04/05/18 18:45 INR 1.2 04/05/18 18:45 APTT 35 SECONDS (21-34) H 04/05/18 18:45 Assessment and Plan (1) Glaucoma Status: Chronic (2) Abnormal LFTs Status: Acute (3) Pancytopenia Status: Acute (4) Atrial fibrillation Status: Chronic (5) CHF (congestive heart failure) Status: Chronic (6) HTN (hypertension) Status: Chronic (7) Hypothyroidism Status: Chronic (8) COPD (chronic obstructive pulmonary disease) Status: Chronic (9) Acute renal failure Status: Acute (10) Pacemaker Status: Chronic (11) Prophylactic measure Status: Acute Attending/Attestation - Attestation I have personally seen and examined this patient.: Yes I have fully participated in the care of the patient.: Yes I have reviewed all pertinent clinical information, including history, physical exam and plan: Yes Notes (Text): Patient seen, examined, and case discussed with day-time resident. Patient seen this morning with family member at bedside. Patient reports she feels ok. No complaints seen with family member at bedside. Patient has completed 2 units of PRBC. H/H stable in the 9s. This afternoon she started dry heaving and noting abdominal pain. We will consult general surgery low vision therapist to evaluated given elevated CBD/Cholelithiasis. I spoke with hematology-oncology-->will speak with Dr. Gonzales and patient's outpatient hematology-oncology to understand where she is in her cancer treatment and why specifically on Tamoxifen. (1) Metastatic Disease? History of Breast Cancer Assessment/Plan * Hematology-oncology (Dr. torres)-->low vision therapist * Will call Dr. Gonzales's office and see who the oncologist and review since patient is on Tamoxifen as outpatient * CT Chest (04/06/18): metastatic disease to the skeleton. There is a suggestion of a prominent compression fracture/compression lumbar vertebral. Cirrhotic liver with portal hypertension. Cholelithaisis. Prominent bulky adenopathy within the upper abdomen. Metastatic disease cannot be excluded. Indetermine nodules oin the urine. * Patient history of breast cancer; review of EMR: ER2/PR2 positive. * Patient is on Tamoxifen as outpatient (2) Pancytopenia Assessment & Plan: * GI (Dr. Munguia) on board-->low vision therapist help appreciated * Hematology-oncology (Dr. Torres) on board-->low vision therapist help appreciated * * Patient history of breast cancer; review of EMR: ER2/PR2 positive. * Patient reports last seen her hemeonc 7 months ago. * Patient reports has had mastectomy about 2 years ago; Daughter cant remember the name of her heme-onc * Patient is taking Tamoxfen as outpatient * Patient reports she takes iron supplements as outpatient. * Per daughter, patient chronic drinks beer, aspirin for atrial fibrillation. Status: Acute (3) Abnormal LFTs Liver Cirrhosis Portal Hypertension Ascites Assessment & Plan: * GI (Dr. Munguia/Dr. Cole) on board-->help on board * Abdomen US (04/06/18): increased echogenicity of the hepatic parenchymal cortex suggestive for hepatic parenxhymal disease versus fatty infiltration. Nodular/cirrhotic continue of liver. Cholelithiasis. Gallbladder wall appears thickened up to 4mm. Gallbladder wall edema. Negative Sonographic Nunez's sign. Common bile duct measures 6mm. Increased echogenicity of the bilateral renal parenchymal cortices suggestive for medical renal disrase. Atrophic kidneys. Bilateral renal cysts. urinary bladder is underdistended. Ascites throughout the abdomen. * Hepatitis panel: negative Status: Acute (4) Atrial fibrillation Assessment & Plan: * Aspirin held given concern for potential GI bleed given anemia * off rate control agent Status: Chronic (5) CHF (congestive heart failure), Systolic Assessment & Plan: * Cardiology (Dr. Ortega) on case-->help appreciated * prior echo from 2016; noted for mild impairment EF: 45% * Prior medications: coreg 3.125 mg bid, cardizem CD 120 mg daily, losartan 25 mg daily and lasix 20 mg daily at home; Status: Chronic (6) HTN (hypertension) Status: Chronic * monitor vital signs * Prior medications: coreg 3.125 mg bid, cardizem CD 120 mg daily, losartan 25 mg daily and lasix 20 mg daily at home (7) Hypothyroidism Status: Chronic * check TSH and Free T4 (8) COPD (chronic obstructive pulmonary disease) Assessment & Plan: * Duonebs PRN shortness of breathe * CT Chest (04/06/18): metastatic disease to the skeleton. There is a suggestion of a prominent compression fracture/compression lumbar vertebral. Cirrhotic liver with portal hypertension. Cholelithaisis. Prominent bulky adenopathy within the upper abdomen. Metastatic disease cannot be excluded. * Chest xray (04/05/18): left sided pacemaker, mild venous congestion, tortuous ectatic aorta, with calcification at the aortic knob. mild cardiomegaly. Status: Chronic (9) Acute renal failure Assessment & Plan: * Nephrology (Dr. Saravia) on consult-->help appreciated * Renal US (04/06/18): limited visualization of the aorta/IVC. increased echogencity of the bilateral renal parenchymal cortices suggestive for medical rnal disease. atrophic kidneys. bilateral renal cysts. ascites throughout the abdomen. * prior in 09/2016: 0.9 * Improving Status: Acute (10) Pacemaker Status: Chronic (11) Thrombocytopenia Assessment & Plan: * Hematology-oncology on board-->help appreciated * mildly improving (12) Prophylactic measure Assessment & Plan: * off chemical anticoagulation given concern for GI bleed * Protonix 40mg IV Q12H * PT/OT eval Status: Acute (13) Glaucoma Assessment & Plan: * Patient is legally blind. Status: Chronic
[2018-04-07 09:17] LABS: BASO % 0.6 % (0.0-2.0); EOS % 0.6 % (0.0-4.0); HEMOGLOBIN 9.9 g/dL (11.0-16.0); LYMPH # 1.1 K/uL (1.0-4.3); LYMPH % 24.3 % (20.0-40.0); MEAN CORPUSCULAR HEMOGLOBIN 32.7 pg (27.0-31.0); MEAN CORPUSCULAR HGB CONC 34.6 g/dL (33.0-37.0); MEAN PLATELET VOLUME 7.4 fL (7.2-11.7); MONO # 0.2 K/uL (0.0-0.8); MONO % 4.8 % (0.0-10.0); NEUT % 69.7 % (50.0-75.0); NRBC % 0.5 % (0.0-2.0); RBC 3.02 Mil/uL (3.80-5.20); RED CELL DISTRIBUTION WIDTH 20.4 % (11.5-14.5); WHITE BLOOD COUNT 4.3 K/uL (4.8-10.8)
[2018-04-07 09:19] LABS: ALBUMIN 3.4 g/dL (3.5-5.0); CALCIUM 9.2 mg/dl (8.6-10.4)
[2018-04-07 09:21] LABS: MEAN CELL VOLUME 94.6 fL (81.0-99.0)
[2018-04-07 09:32] LABS: COMPLEMENT C4 30.2 mg/dL (14.0-44.0)
[2018-04-07 13:57] LABS: BASO % 0.5 % (0.0-2.0); EOS % 0.6 % (0.0-4.0); HEMOGLOBIN 9.8 g/dL (11.0-16.0); LYMPH # 0.9 K/uL (1.0-4.3); LYMPH % 22.2 % (20.0-40.0); MEAN CELL VOLUME 96.4 fL (81.0-99.0); MEAN CORPUSCULAR HEMOGLOBIN 33.6 pg (27.0-31.0); MEAN CORPUSCULAR HGB CONC 34.9 g/dL (33.0-37.0); MONO # 0.2 K/uL (0.0-0.8); MONO % 4.7 % (0.0-10.0); NEUT # 3.1 K/uL (1.8-7.0); NRBC % 0.5 % (0.0-2.0); RBC 2.93 Mil/uL (3.80-5.20); RED CELL DISTRIBUTION WIDTH 19.9 % (11.5-14.5); WHITE BLOOD COUNT 4.2 K/uL (4.8-10.8)
[2018-04-07 17:08] LABS: CREATININE, RANDOM URINE 61.9 mg/dL
--- NOTE | 2018-04-07 18:44 | CP.PCM.CON ---
History of Present Illness - History of Present Illness History of Present Illness: Surgery: Dr. Perry CC: Abd Pain HPI: 83F w. pmh of anemia, anxiety, glaucoma/blindness, atrial fibrillation, CHF , COPD, cholelithiasis, HTN, hypothyroidism, Breast CA w. concerns for mets, and likely cirrhosis initially presented to ED on 04/05 for weakness and fatigue. Surgery was consulted today for acute onset RUQ abd pain. Pt states that she ate a hamburger earlier today. Soon after eating hamburger she experienced acute onset RUQ pain. Pain is constant with no alleviating factors. She reports N/V. She denies diarrhea. She has no F/C. She has never experienced this pain in the past. PMH: see above PSH: mastectomy (2016), pacemaker (2010), left hip surgery Meds: MAR reviewed NKDA Social history: 5 cans of beer per day past 20 years. 2 cigarettes per week past 20 years. Denies recreational drug use. Fhx: Non-contributory Review of Systems - Review of Systems All systems: reviewed and no additional remarkable complaints except (HPI) Past Patient History - Infectious Disease Hx of Infectious Diseases: None - Tetanus Immunizations Tetanus Immunization: Unknown - Past Medical History & Family History Past Medical History?: Yes - Past Social History Smoking Status: Former Smoker - CARDIAC Hx Atrial Fibrillation: Yes Hx Cardia Arrhythmia: Yes (ATRIAL FIB) Hx Congestive Heart Failure: Yes Hx Hypertension: Yes Hx Pacemaker: Yes (left side) - PULMONARY Hx Chronic Obstructive Pulmonary Disease (COPD): Yes - NEUROLOGICAL Hx Neurological Disorder: No - HEENT Hx HEENT Problems: Yes Hx Blind: Yes (ARTIFICIAL LEFT EYE, right eye blind) Hx Glaucoma: Yes (right eye) - RENAL Hx Chronic Kidney Disease: No - ENDOCRINE/METABOLIC Hx Hypothyroidism: Yes - HEMATOLOGICAL/ONCOLOGICAL Hx Anemia: Yes - INTEGUMENTARY Hx Dermatological Problems: No - MUSCULOSKELETAL/RHEUMATOLOGICAL Hx Arthritis: Yes (B/L KNEES ; BACK PAIN) Hx Fractures: Yes (left hip 10 years ago) - GASTROINTESTINAL Hx Gall Bladder Disease: Yes (GALLSTONES) - GENITOURINARY/GYNECOLOGICAL Hx Genitourinary Disorders: Yes (URINARY FREQUENCY) - PSYCHIATRIC Hx Anxiety: Yes Hx Substance Use: No - SURGICAL HISTORY Hx Surgeries: Yes Hx Breast Biopsy: Yes Hx Cardiac Catheterization: Yes Hx Eye Surgery: Yes (left eye) Hx Hysterectomy: Yes (4o years ago) Hx Mastectomy: Yes (left 08/25/16) Hx Orthopedic Surgery: Yes (left hip 10 yrs ago) - ANESTHESIA Hx Anesthesia: Yes Hx Anesthesia Reactions: No Hx Malignant Hyperthermia: No Meds Allergies/Adverse Reactions: Allergies Allergy/AdvReac Type Severity Reaction Status Date / Time No Known Allergies Allergy Verified 04/05/18 18:07 - Medications Medications: Current Medications Albuterol/Ipratropium (Duoneb 3 Mg/0.5 Mg (3 Ml) Ud) 3 ml INH RQ6 PRN PRN Reason: Shortness of Breath Pantoprazole Sodium (Protonix Inj) 40 mg IVP Q12 WILLIAM Last Admin: 04/07/18 09:53 Dose: 40 mg Pneumococcal Polyvalent Vaccine (Pneumovax 23 Vaccine) 0.5 ml IM .ONCE ONE Stop: 04/08/18 10:01 Temazepam (Restoril) 15 mg PO HS WILLIAM Physical Exam - Constitutional Appears: Non-toxic, Other (uncomfortable) - Head Exam Head Exam: ATRAUMATIC, NORMOCEPHALIC - Eye Exam Eye Exam: EOMI - ENT Exam ENT Exam: Mucous Membranes Moist - Neck Exam Neck exam: Positive for: Full Rom - Respiratory Exam Respiratory Exam: NORMAL BREATHING PATTERN. absent: Accessory Muscle Use, Respiratory Distress - GI/Abdominal Exam GI & Abdominal Exam: Soft, Tenderness (RUQ, +hyde). absent: Distended, Firm, Guarding, Rebound, Rigid - Extremities Exam Extremities exam: Negative for: calf tenderness - Neurological Exam Neurological exam: Alert, Oriented x3 - Psychiatric Exam Psychiatric exam: Normal Affect, Normal Mood Results - Vital Signs Recent Vital Signs: Last Vital Signs Temp 97.7 F 04/07/18 16:13 Pulse 101 H 04/07/18 16:13 Resp 20 04/07/18 16:13 BP 137/83 04/07/18 16:13 Pulse Ox 96 04/07/18 16:13 - Labs Result Diagrams: 04/07/18 13:51 04/07/18 08:58 Labs: Laboratory Results - last 24 hr 04/06/18 04/06/18 04/06/18 19:16 19:16 19:16 WBC 3.0 L RBC 2.99 L Hgb 9.7 L D Hct 27.6 L MCV 92.5 D MCH 32.4 H MCHC 35.0 RDW 20.0 H Plt Count 83 L MPV 7.5 Neut % (Auto) 59.9 Lymph % (Auto) 34.1 [place] % (Auto) 3.8 Eos % (Auto) 1.6 Baso % (Auto) 0.6 Neut # (Auto) 1.8 Lymph # (Auto) 1.0 [place] # (Auto) 0.1 Eos # (Auto) 0.1 Baso # (Auto) 0.0 Differential Comment Sodium Potassium Chloride Carbon Dioxide Anion Gap BUN Creatinine Est GFR ( Amer) Est GFR (Non-Af Amer) Random Glucose Hemoglobin A1c Uric Acid Calcium Phosphorus Magnesium Total Bilirubin AST ALT Alkaline Phosphatase Ammonia Total Protein Albumin Globulin Albumin/Globulin Ratio Triglycerides Cholesterol LDL Cholesterol Direct HDL Cholesterol 25-OH Vitamin D Total Free T4 TSH 3rd Generation Ur Random Creatinine Ur Random Sodium Complement C3 Complement C4 Hepatitis A IgM Ab Negative Hep Bs Antigen Negative Hep B Core IgM Ab Negative Hepatitis C Antibody Negative HIV 1&2 Antibody Screen Negative 04/07/18 04/07/18 04/07/18 03:03 08:58 08:58 WBC 4.3 L RBC 3.02 L Hgb 9.9 L Hct 28.6 L MCV 94.6 D MCH 32.7 H MCHC 34.6 RDW 20.4 H Plt Count 89 L MPV 7.4 Neut % (Auto) 69.7 Lymph % (Auto) 24.3 [place] % (Auto) 4.8 Eos % (Auto) 0.6 Baso % (Auto) 0.6 Neut # (Auto) 3.0 Lymph # (Auto) 1.1 [place] # (Auto) 0.2 Eos # (Auto) 0.0 Baso # (Auto) 0.0 Differential Comment Sodium 142 Potassium 4.0 Chloride 107 Carbon Dioxide 22 Anion Gap 17 BUN 57 H Creatinine 1.6 H Est GFR ( Amer) 37 Est GFR (Non-Af Amer) 31 Random Glucose 140 H Hemoglobin A1c Uric Acid Calcium 9.2 Phosphorus 3.5 Magnesium 2.3 Total Bilirubin 2.2 H AST 225 H ALT 122 H Alkaline Phosphatase 564 H Ammonia Total Protein 6.8 Albumin 3.4 L Globulin 3.4 Albumin/Globulin Ratio 1.0 Triglycerides 38 Cholesterol 114 LDL Cholesterol Direct 30 HDL Cholesterol 47 25-OH Vitamin D Total Free T4 TSH 3rd Generation 0.26 L Ur Random Creatinine 10.1 Ur Random Sodium 113 Complement C3 Complement C4 Hepatitis A IgM Ab Hep Bs Antigen Hep B Core IgM Ab Hepatitis C Antibody HIV 1&2 Antibody Screen 04/07/18 04/07/18 04/07/18 08:58 08:58 08:58 WBC RBC Hgb Hct MCV MCH MCHC RDW Plt Count MPV Neut % (Auto) Lymph % (Auto) [place] % (Auto) Eos % (Auto) Baso % (Auto) Neut # (Auto) Lymph # (Auto) [place] # (Auto) Eos # (Auto) Baso # (Auto) Differential Comment Sodium Potassium Chloride Carbon Dioxide Anion Gap BUN Creatinine Est GFR ( Amer) Est GFR (Non-Af Amer) Random Glucose Hemoglobin A1c 5.2 Uric Acid Calcium Phosphorus Magnesium Total Bilirubin AST ALT Alkaline Phosphatase Ammonia 73 H Total Protein Albumin Globulin Albumin/Globulin Ratio Triglycerides Cholesterol LDL Cholesterol Direct HDL Cholesterol 25-OH Vitamin D Total Free T4 1.09 TSH 3rd Generation Ur Random Creatinine Ur Random Sodium Complement C3 Complement C4 Hepatitis A IgM Ab Hep Bs Antigen Hep B Core IgM Ab Hepatitis C Antibody HIV 1&2 Antibody Screen 04/07/18 04/07/18 04/07/18 08:58 08:58 08:58 WBC RBC Hgb Hct MCV MCH MCHC RDW Plt Count MPV Neut % (Auto) Lymph % (Auto) [place] % (Auto) Eos % (Auto) Baso % (Auto) Neut # (Auto) Lymph # (Auto) [place] # (Auto) Eos # (Auto) Baso # (Auto) Differential Comment Sodium Potassium Chloride Carbon Dioxide Anion Gap BUN Creatinine Est GFR ( Amer) Est GFR (Non-Af Amer) Random Glucose Hemoglobin A1c Uric Acid 5.8 Calcium Phosphorus Magnesium Total Bilirubin AST ALT Alkaline Phosphatase Ammonia Total Protein Albumin Globulin Albumin/Globulin Ratio Triglycerides Cholesterol LDL Cholesterol Direct HDL Cholesterol 25-OH Vitamin D Total 57.0 Free T4 TSH 3rd Generation Ur Random Creatinine Ur Random Sodium Complement C3 78.0 L Complement C4 30.2 Hepatitis A IgM Ab Hep Bs Antigen Hep B Core IgM Ab Hepatitis C Antibody HIV 1&2 Antibody Screen 04/07/18 04/07/18 13:51 16:36 WBC 4.2 L RBC 2.93 L Hgb 9.8 L Hct 28.2 L MCV 96.4 MCH 33.6 H MCHC 34.9 RDW 19.9 H Plt Count 91 L MPV 8.0 Neut % (Auto) 72.0 Lymph % (Auto) 22.2 [place] % (Auto) 4.7 Eos % (Auto) 0.6 Baso % (Auto) 0.5 Neut # (Auto) 3.1 Lymph # (Auto) 0.9 L [place] # (Auto) 0.2 Eos # (Auto) 0.0 Baso # (Auto) 0.0 Differential Comment Sodium Potassium Chloride Carbon Dioxide Anion Gap BUN Creatinine Est GFR ( Amer) Est GFR (Non-Af Amer) Random Glucose Hemoglobin A1c Uric Acid Calcium Phosphorus Magnesium Total Bilirubin AST ALT Alkaline Phosphatase Ammonia Total Protein Albumin Globulin Albumin/Globulin Ratio Triglycerides Cholesterol LDL Cholesterol Direct HDL Cholesterol 25-OH Vitamin D Total Free T4 TSH 3rd Generation Ur Random Creatinine 61.9 Ur Random Sodium 17 Complement C3 Complement C4 Hepatitis A IgM Ab Hep Bs Antigen Hep B Core IgM Ab Hepatitis C Antibody HIV 1&2 Antibody Screen - Imaging and Cardiology CT scan - chest Status: Image reviewed by me, Report reviewed by me US - abdomen Status: Image reviewed by me, Report reviewed by me Assessment & Plan - Assessment and Plan (Free Text) Assessment: 83F w. biliary colic vs. cholecystitis vs. choledocholithiasis -NPO -IVF -Pain management/anti-emetics -serial abd exams / Trend labs -Unable to do MRCP 2/2 pacemaker -Child Class B: 30% alice-operative mortality rate -No plans for surgical intervention -If patients symptoms / condition worsens recommend IR for cholecystostomy tube -d/w attending Zemaitis PGY4
[2018-04-07] MEDS ORDERED: HYDROmorphone 0.5 mg/0.5 ml ISec IVP PRN (18:59)
[2018-04-07] MEDS ORDERED: Sodium Chloride 0.9% 1,000 ML IV SCH ×2 (19:00→21:46)
[2018-04-07 19:38] LABS: BASO % 0.3 % (0.0-2.0); EOS % 0.3 % (0.0-4.0); HEMOGLOBIN 9.8 g/dL (11.0-16.0); LYMPH # 0.9 K/uL (1.0-4.3); LYMPH % 13.8 % (20.0-40.0); MEAN CELL VOLUME 93.1 fL (81.0-99.0); MEAN CORPUSCULAR HEMOGLOBIN 32.3 pg (27.0-31.0); MEAN CORPUSCULAR HGB CONC 34.7 g/dL (33.0-37.0); MEAN PLATELET VOLUME 7.6 fL (7.2-11.7); MONO # 0.6 K/uL (0.0-0.8); MONO % 9.9 % (0.0-10.0); NEUT # 4.7 K/uL (1.8-7.0); NEUT % 75.7 % (50.0-75.0); NRBC % 0.3 % (0.0-2.0); RBC 3.04 Mil/uL (3.80-5.20); RED CELL DISTRIBUTION WIDTH 20.3 % (11.5-14.5); WHITE BLOOD COUNT 6.3 K/uL (4.8-10.8)
--- NOTE | 2018-04-07 21:12 | CP.PCM.PN ---
Subjective - Date & Time of Evaluation Date of Evaluation: 04/07/18 Time of Evaluation: 14:00 - Subjective Subjective: Patient's daughter at bedside, mentions that patient continues to drink ~6 beers per day; has issues with constipation; patient otherwise with no complaints; denies any sob; Objective - Vital Signs/Intake and Output Vital Signs (last 24 hours): Temp Pulse Resp BP Pulse Ox 97.7 F 101 H 20 137/83 96 04/07/18 16:13 04/07/18 16:13 04/07/18 16:13 04/07/18 16:13 04/07/18 16:13 Intake and Output: 04/07/18 04/08/18 18:59 06:59 Intake Total 750 Balance 750 - Medications Medications: Current Medications Albuterol/Ipratropium (Duoneb 3 Mg/0.5 Mg (3 Ml) Ud) 3 ml INH RQ6 PRN PRN Reason: Shortness of Breath Hydromorphone HCl (Dilaudid) 1 mg IVP Q4H PRN PRN Reason: Pain, moderate (4-7) Last Admin: 04/07/18 20:03 Dose: 1 mg Piperacillin Sod/Tazobactam Sod (Zosyn 2.25 Gm Iv Premix) 2.25 gm in 50 mls @ 50 mls/hr IVPB Q8 WILLIAM Sodium Chloride (Sodium Chloride 0.9%) 1,000 mls @ 100 mls/hr IV .Q10H WILLIAM Last Admin: 04/07/18 19:53 Dose: 100 mls/hr Ondansetron HCl (Zofran Inj) 4 mg IVP Q4H PRN PRN Reason: Nausea/Vomiting Pantoprazole Sodium (Protonix Inj) 40 mg IVP Q12 WILLIAM Last Admin: 04/07/18 09:53 Dose: 40 mg Pneumococcal Polyvalent Vaccine (Pneumovax 23 Vaccine) 0.5 ml IM .ONCE ONE Stop: 04/08/18 10:01 Temazepam (Restoril) 15 mg PO HS WILLIAM - Labs Labs: 04/07/18 19:32 04/07/18 08:58 PT 13.5 SECONDS (9.7-12.2) H 04/05/18 18:45 INR 1.2 04/05/18 18:45 APTT 35 SECONDS (21-34) H 04/05/18 18:45 - Constitutional Appears: Non-toxic, No Acute Distress - Eye Exam Eye Exam: Normal appearance - Respiratory Exam Respiratory Exam: Clear to Ausculation Bilateral. absent: Respiratory Distress - Cardiovascular Exam Cardiovascular Exam: RRR, +S1, +S2. absent: Gallop - GI/Abdominal Exam GI & Abdominal Exam: Soft. absent: Distended, Tenderness - Exam Exam: absent: Bladder Distension - Extremities Exam Additional comments: no leg edema; - Neurological Exam Neurological Exam: Alert, Awake - Psychiatric Exam Psychiatric exam: Normal Mood. absent: Agitated - Skin Skin Exam: Warm. absent: Cyanosis Assessment and Plan (1) Acute kidney injury Assessment & Plan: Pre-renal etiology superimposed on likely some degree of CKD; renal function improved after prbc transfusion; additionally, may have been over-diuresed at home (was on lasix and losartan); agree with gentle IVF w/ NS at 50 cc/hr; Status: Acute (2) CHF (congestive heart failure) Assessment & Plan: Currently asymptomatic/euvolemic on exam; recommend to restart on home med of low dose coreg 3.125 mg bid, continue to hold losartan and diuretic; Status: Chronic (3) HTN (hypertension) Assessment & Plan: BP currently controlled; see above regarding coreg; Status: Chronic (4) Anemia Status: Acute
[2018-04-07] MEDS: Piperacill/Tazo 2.25gm in Dex 2.25 GM/50 ML BAG IVPB SCH (21:50)
[2018-04-07] MEDS ORDERED: Piperacillin/Tazobact 2.25 gm Inj IV SCH (22:00)
--- NOTE | 2018-04-07 22:45 | CP.PCM.PN ---
Subjective - Date & Time of Evaluation Date of Evaluation: 04/07/18 Time of Evaluation: 17:20 - Subjective Subjective: Patient seen and evaluated denies chest pain and dyspnea C/O Abdominal pain Present on Admission - Present on Admission Any Indicators Present on Admission: No Review of Systems - Constitutional Constitutional: absent: Chills, Fever, Frequent Falls - EENT Eyes: absent: Change in Vision Nose/Mouth/Throat: absent: Sore Throat Additional comments: Admits to facial swelling. - Cardiovascular Cardiovascular: absent: Leg Edema, Palpitations, Syncope - Respiratory Respiratory: absent: Cough, Hemoptysis - Gastrointestinal Gastrointestinal: Abdominal Pain. absent: Change in Bowel Habits, Nausea, Vomiting - Genitourinary Genitourinary: absent: Dysuria - Musculoskeletal Musculoskeletal: Arthralgias - Neurological Neurological: absent: Abnormal Gait, Numbness, Headaches Physical Exam - Constitutional Appears: Non-toxic, No Acute Distress - Head Exam Head Exam: ATRAUMATIC, NORMOCEPHALIC - Eye Exam Eye Exam: Normal appearance Additional comments: Left orbital prosthesis - ENT Exam ENT Exam: Mucous Membranes Dry, Normal External Ear Exam - Neck Exam Neck exam: Positive for: Normal Inspection - Respiratory Exam Respiratory Exam: Clear to Auscultation Bilateral, NORMAL BREATHING PATTERN. absent: Respiratory Distress - Cardiovascular Exam Cardiovascular Exam: REGULAR RHYTHM, +S1, +S2 - GI/Abdominal Exam GI & Abdominal Exam: Normal Bowel Sounds, Soft. absent: Distended, Firm, Guarding, Rebound, Rigid, Tenderness - Extremities Exam Extremities exam: Positive for: calf tenderness, pedal pulses present. Negative for: pedal edema - Back Exam Back exam: NORMAL INSPECTION - Neurological Exam Neurological exam: Alert, CN II-XII Intact, Oriented x3 - Psychiatric Exam Psychiatric exam: Normal Affect, Normal Mood - Skin Skin Exam: Dry, Intact, Normal Color Objective - Vital Signs/Intake and Output Vital Signs (last 24 hours): Temp Pulse Resp BP Pulse Ox 97.7 F 101 H 20 137/83 96 04/07/18 16:13 04/07/18 16:13 04/07/18 16:13 04/07/18 16:13 04/07/18 16:13 Intake and Output: 04/07/18 04/08/18 18:59 06:59 Intake Total 750 Balance 750 - Medications Medications: Current Medications Albuterol/Ipratropium (Duoneb 3 Mg/0.5 Mg (3 Ml) Ud) 3 ml INH RQ6 PRN PRN Reason: Shortness of Breath Hydromorphone HCl (Dilaudid) 1 mg IVP Q4H PRN PRN Reason: Pain, moderate (4-7) Last Admin: 04/07/18 20:03 Dose: 1 mg Piperacillin Sod/Tazobactam Sod (Zosyn 2.25 Gm Iv Premix) 2.25 gm in 50 mls @ 50 mls/hr IVPB Q8 [facility] Last Admin: 04/07/18 21:50 Dose: 50 mls/hr Sodium Chloride (Sodium Chloride 0.9%) 1,000 mls @ 50 mls/hr IV .Q20H [facility] Stop: 04/08/18 14:59 Last Admin: 04/07/18 21:57 Dose: 50 mls/hr Ondansetron HCl (Zofran Inj) 4 mg IVP Q4H PRN PRN Reason: Nausea/Vomiting Pantoprazole Sodium (Protonix Inj) 40 mg IVP Q12 [facility] Last Admin: 04/07/18 21:48 Dose: 40 mg Pneumococcal Polyvalent Vaccine (Pneumovax 23 Vaccine) 0.5 ml IM .ONCE ONE Stop: 04/08/18 10:01 Temazepam (Restoril) 15 mg PO HS [facility] Last Admin: 04/07/18 21:50 Dose: 15 mg - Labs Labs: 04/07/18 19:32 04/07/18 08:58 PT 13.5 SECONDS (9.7-12.2) H 04/05/18 18:45 INR 1.2 04/05/18 18:45 APTT 35 SECONDS (21-34) H 04/05/18 18:45 Assessment and Plan - Assessment and Plan (Free Text) Assessment: 83 yo F w/ PMHx anemia, a. fib, CHF, COPD, HTN, hypothyroidism, breast ca s/p left breast mastectomy admitted w/ weakness and SOB 2/2 to anemia. Acute blood loss Anemia -hgb 9.9 today -s/p 2U PRBC(04/05, 04/06) -FOB + (04/05) -protonix 40mg IVP q12 -GI consult Dr. Munguia/Douglas -heme/onc consult Palathingal Pancytopenia -breast ca w/ left sided mastectomy(2015), chemo hx unknown -Tamoxifen Acute Renal Failure -improving, Cr 2.1-->1.6 from admission -renal US(04/06) shows B/L atrophic kidneys, renal cysts, increased echogenicity of renal parenchymal cortices suggestive of medical renal disease. Abd ascites -Nephro consult Dr. Saravia Elevated liver enzymes -worsening alk phos, ast, alt. Tbil up 1.1-->2.2 on admission -abd US(04/06) shows possible hepatic parenchymal disease vd fatty infiltration, nodular/cirrhotic liver contour, blood flow reversal w/in portal vein suggestive of portal HTN. CBD ductal dilitation ~6mm, cholelithiasis, GBW thickening~4mm + edema, abd ascites. CHF -f/u echo A. Fib -holding home ASA 81mg due to GI bleed COPD -duonebs q6 PRN Blindness -glaucoma R eye -L eye blown out? Ppx -DVT ppx contraindicated, acute GI bleed -protonix 40mg q12
[2018-04-08] MEDS: Piperacill/Tazo 2.25gm in Dex 2.25 GM/50 ML BAG IVPB SCH ×3 (05:27→21:53)
[2018-04-08 07:29] LABS: BASO % 0.6 % (0.0-2.0); EOS # 0.1 K/uL (0.0-0.7); HEMOGLOBIN 9.5 g/dL (11.0-16.0); LYMPH # 1.1 K/uL (1.0-4.3); LYMPH % 20.5 % (20.0-40.0); MEAN CORPUSCULAR HEMOGLOBIN 33.3 pg (27.0-31.0); MEAN PLATELET VOLUME 7.4 fL (7.2-11.7); MONO # 0.4 K/uL (0.0-0.8); MONO % 7.4 % (0.0-10.0); NEUT # 3.9 K/uL (1.8-7.0); NEUT % 70.5 % (50.0-75.0); NRBC % 0.3 % (0.0-2.0); RBC 2.86 Mil/uL (3.80-5.20); RED CELL DISTRIBUTION WIDTH 20.5 % (11.5-14.5); WHITE BLOOD COUNT 5.6 K/uL (4.8-10.8)
[2018-04-08 07:31] LABS: INR 1.3; PROTHROMBIN TIME 14.4 SECONDS (9.7-12.2)
[2018-04-08 07:37] LABS: MEAN CELL VOLUME 95.2 fL (81.0-99.0)
[2018-04-08 07:47] LABS: ALB/GLOB RATIO 1.1 (1.0-2.1); ALBUMIN 3.5 g/dL (3.5-5.0); CALCIUM 8.8 mg/dl (8.6-10.4)
--- NOTE | 2018-04-08 08:11 | CARD ---
APPROVED REPORT Date of service: 04/05/2018 EKG Measurement Heart [id number] <Conclusion> AV dual-paced rhythm with prolonged AV conduction Abnormal ECG
--- NOTE | 2018-04-08 08:43 | CP.PCM.PN ---
<Jaime Mariee - Last Filed: 04/08/18 12:23> Subjective - Date & Time of Evaluation Date of Evaluation: 04/08/18 Time of Evaluation: 08:43 - Subjective Subjective: Progress Note for 's Service Patient seen and examined at bedside. Per nursing no acute events occurred overnight. Patient reports no complaints during today's visit. Patient is AOX2 and denies any chest pain, fevers, chills, nausea,vomiting, dizziness, or any other complaints. Objective - Vital Signs/Intake and Output Vital Signs (last 24 hours): Temp Pulse Resp BP Pulse Ox 97.9 F 87 20 119/62 100 04/08/18 08:11 04/08/18 08:11 04/08/18 08:11 04/08/18 08:11 04/08/18 08:11 Intake and Output: 04/08/18 04/08/18 06:59 18:59 Intake Total 1200 Balance 1200 - Medications Medications: Current Medications Albuterol/Ipratropium (Duoneb 3 Mg/0.5 Mg (3 Ml) Ud) 3 ml INH RQ6 PRN PRN Reason: Shortness of Breath Hydromorphone HCl (Dilaudid) 1 mg IVP Q4H PRN PRN Reason: Pain, moderate (4-7) Last Admin: 04/07/18 20:03 Dose: 1 mg Piperacillin Sod/Tazobactam Sod (Zosyn 2.25 Gm Iv Premix) 2.25 gm in 50 mls @ 50 mls/hr IVPB Q8 [facility] Last Admin: 04/08/18 05:27 Dose: 50 mls/hr Sodium Chloride (Sodium Chloride 0.9%) 1,000 mls @ 50 mls/hr IV .Q20H [facility] Stop: 04/08/18 14:59 Last Admin: 04/07/18 21:57 Dose: 50 mls/hr Ondansetron HCl (Zofran Inj) 4 mg IVP Q4H PRN PRN Reason: Nausea/Vomiting Pantoprazole Sodium (Protonix Inj) 40 mg IVP Q12 [facility] Last Admin: 04/07/18 21:48 Dose: 40 mg Pneumococcal Polyvalent Vaccine (Pneumovax 23 Vaccine) 0.5 ml IM .ONCE ONE Stop: 04/08/18 10:01 Temazepam (Restoril) 15 mg PO HS [facility] Last Admin: 04/07/18 21:50 Dose: 15 mg - Labs Labs: 04/08/18 07:12 04/08/18 07:12 PT 14.4 SECONDS (9.7-12.2) H 04/08/18 07:12 INR 1.3 04/08/18 07:12 APTT 35 SECONDS (21-34) H 04/05/18 18:45 - Head Exam Head Exam: ATRAUMATIC, NORMAL INSPECTION - Eye Exam Eye Exam: EOMI, Normal appearance, PERRL Pupil Exam: NORMAL ACCOMODATION, PERRL. absent: Irregular, Unequal - ENT Exam ENT Exam: Mucous Membranes Moist, Normal Oropharynx - Cardiovascular Exam Cardiovascular Exam: REGULAR RHYTHM, +S1, +S2 - GI/Abdominal Exam GI & Abdominal Exam: Soft, Normal Bowel Sounds - Neurological Exam Neurological Exam: Alert, Awake, Oriented x3 - Psychiatric Exam Psychiatric exam: Normal Affect, Normal Mood. absent: Depressed - Skin Skin Exam: Dry, Intact Assessment and Plan - Assessment and Plan (Free Text) Plan: Assessment and Plan 1.Acute kidney injury Assessment & Plan: Pre-renal etiology superimposed on likely some degree of CKD; renal function improved after prbc transfusion; additionally, may have been over-diuresed at home (was on lasix and losartan); continue gentle IVF w/ NS at 80 cc/hr; Status: Acute 2.CHF (congestive heart failure) Assessment & Plan: Currently asymptomatic/euvolemic on exam; recommend to restart on home med of low dose coreg 3.125 mg bid,(Hold if SBP less than 110 or Heart rate less than 60) continue to hold losartan and diuretic; Status: Chronic 3.HTN (hypertension) Assessment & Plan: BP currently controlled without coreg.;can restart lowdose coreg 3.125mg BID with blood pressure parameters (Hold if SBP less than 110 or Heart rate less than 60) Status: Chronic 4.Anemia s/p 2units PRBC's Hgb today 9.5 today. Will continue to monitor. Status: Acute 5. Choledocholithiasis vs. cholecystitis vs. biliary colic -Patient seen and not a good candiate for surgery at this time. -Child class B score: 30% mortality rate -Surgery following. Plan discussed with Dr.Mughni. Jaime Mariee-PGY2 <PradipgregorioRc kelley - Last Filed: 04/08/18 23:03> Objective - Vital Signs/Intake and Output Vital Signs (last 24 hours): Temp Pulse Resp BP Pulse Ox 97.7 F 94 H 20 132/84 99 04/08/18 15:47 04/08/18 15:47 04/08/18 15:47 04/08/18 15:47 04/08/18 15:47 Intake and Output: 04/08/18 04/09/18 18:59 06:59 Intake Total 300 Balance 300 - Medications Medications: Current Medications Albuterol/Ipratropium (Duoneb 3 Mg/0.5 Mg (3 Ml) Ud) 3 ml INH RQ6 PRN PRN Reason: Shortness of Breath Last Admin: 04/08/18 08:46 Dose: 3 ml Carvedilol (Coreg) 3.125 mg PO BID [facility] Hydromorphone HCl (Dilaudid) 1 mg IVP Q4H PRN PRN Reason: Pain, moderate (4-7) Last Admin: 04/07/18 20:03 Dose: 1 mg Piperacillin Sod/Tazobactam Sod (Zosyn 2.25 Gm Iv Premix) 2.25 gm in 50 mls @ 50 mls/hr IVPB Q8 [facility] Last Admin: 04/08/18 21:53 Dose: 50 mls/hr Ondansetron HCl (Zofran Inj) 4 mg IVP Q4H PRN PRN Reason: Nausea/Vomiting Pantoprazole Sodium (Protonix Inj) 40 mg IVP Q12 [facility] Last Admin: 04/08/18 21:52 Dose: 40 mg Temazepam (Restoril) 15 mg PO HS [facility] Last Admin: 04/08/18 21:59 Dose: Not Given - Labs Labs: 04/08/18 14:00 04/08/18 07:12 PT 14.4 SECONDS (9.7-12.2) H 04/08/18 07:12 INR 1.3 04/08/18 07:12 APTT 35 SECONDS (21-34) H 04/05/18 18:45 Assessment and Plan (1) Acute kidney injury Status: Acute (2) CHF (congestive heart failure) Status: Chronic (3) HTN (hypertension) Status: Chronic (4) Anemia Status: Acute Attending/Attestation - Attestation I have personally seen and examined this patient.: Yes I have fully participated in the care of the patient.: Yes I have reviewed all pertinent clinical information, including history, physical exam and plan: Yes Notes (Text): Patient seen and examined agree with the resident's note as above with the following additions/edits: Patient with history of breast cancer hypertension admitted with vague symptoms found to have some degree of liver dysfunction with transaminitis; nephrology following for MAHAD; Oncology consult reviewed; CT abdomen and pelvis ordered by them to look for evidence of metastatic disease; CT showing significant thinning of renal cortices which is consistent with some degree of CKD; etiology of this CKD is still unclear; awaiting for official CT report as preliminary report mentioned bulky adenopathy but no mention of any ureteral/vascular encasement; currently also with prerenal superimposed AK I that initially improved with PRBC transfusion; --Increasing IV fluids to NS at 75 mL per hour; need to monitor for signs/symptoms of CHF w/ echo indicating diastolic dysfunction; -continue to hold ARB/diuretic; -Avoid nephrotoxic agents (NSAIDS, phosphate enema); -May benefit from 24 hr urine for creatinine clearance once renal function stabilizes (to see how much eGFR is overestimating renal function); 04/08/18 22:59
[2018-04-08] MEDS: Albuterol-Ipratrop 3 mg / 0.5 (3 ml) UD INH PRN (08:46)
--- NOTE | 2018-04-08 09:18 | CP.PCM.PN ---
<Katherine Lock - Last Filed: 04/08/18 18:14> Subjective - Date & Time of Evaluation Date of Evaluation: 04/08/18 Time of Evaluation: 09:18 - Subjective Subjective: Cardiology Progress Note - Dr. Ortega Patient seen and examined at bedside. Per nursing no acute events overnight. Patient is doing well, offers no complaints at this time. Denies chest pain or dyspnea. Objective - Vital Signs/Intake and Output Vital Signs (last 24 hours): Temp Pulse Resp BP Pulse Ox 97.9 F 87 20 119/62 100 04/08/18 08:11 04/08/18 08:11 04/08/18 08:11 04/08/18 08:11 04/08/18 08:11 Intake and Output: 04/08/18 04/08/18 06:59 18:59 Intake Total 1200 Balance 1200 - Medications Medications: Current Medications Albuterol/Ipratropium (Duoneb 3 Mg/0.5 Mg (3 Ml) Ud) 3 ml INH RQ6 PRN PRN Reason: Shortness of Breath Last Admin: 04/08/18 08:46 Dose: 3 ml Hydromorphone HCl (Dilaudid) 1 mg IVP Q4H PRN PRN Reason: Pain, moderate (4-7) Last Admin: 04/07/18 20:03 Dose: 1 mg Piperacillin Sod/Tazobactam Sod (Zosyn 2.25 Gm Iv Premix) 2.25 gm in 50 mls @ 50 mls/hr IVPB Q8 [facility] Last Admin: 04/08/18 05:27 Dose: 50 mls/hr Sodium Chloride (Sodium Chloride 0.9%) 1,000 mls @ 50 mls/hr IV .Q20H [facility] Stop: 04/08/18 14:59 Last Admin: 04/07/18 21:57 Dose: 50 mls/hr Ondansetron HCl (Zofran Inj) 4 mg IVP Q4H PRN PRN Reason: Nausea/Vomiting Pantoprazole Sodium (Protonix Inj) 40 mg IVP Q12 [facility] Last Admin: 04/07/18 21:48 Dose: 40 mg Pneumococcal Polyvalent Vaccine (Pneumovax 23 Vaccine) 0.5 ml IM .ONCE ONE Stop: 04/08/18 10:01 Temazepam (Restoril) 15 mg PO HS [facility] Last Admin: 04/07/18 21:50 Dose: 15 mg - Labs Labs: 04/08/18 07:12 04/08/18 07:12 PT 14.4 SECONDS (9.7-12.2) H 04/08/18 07:12 INR 1.3 04/08/18 07:12 APTT 35 SECONDS (21-34) H 04/05/18 18:45 - Constitutional Appears: Well, No Acute Distress - Head Exam Head Exam: ATRAUMATIC, NORMAL INSPECTION - Eye Exam Eye Exam: EOMI Additional comments: Blind - Respiratory Exam Respiratory Exam: Clear to Ausculation Bilateral, NORMAL BREATHING PATTERN. absent: Rales, Rhonchi, Wheezes - Cardiovascular Exam Cardiovascular Exam: REGULAR RHYTHM, +S1, +S2 - GI/Abdominal Exam GI & Abdominal Exam: Soft. absent: Tenderness - Extremities Exam Extremities Exam: absent: Calf Tenderness - Neurological Exam Neurological Exam: Alert, Awake, Oriented x3 - Psychiatric Exam Psychiatric exam: Normal Affect, Normal Mood - Skin Skin Exam: Normal Color, Warm Assessment and Plan - Assessment and Plan (Free Text) Assessment: 83 yo F w/ PMHx anemia, a. fib, CHF, COPD, HTN, hypothyroidism, breast ca s/p left breast mastectomy admitted w/ weakness and SOB 2/2 to anemia. Acute Symptomatic Anemia -Hgb 9.4 today -s/p 2U PRBC (04/05, 04/06) -Stool occult positive -Protonix 40mg IVP q12 -GI consult Dr. Munguia/Douglas -Heme/onc consult Dr. Fountaingal Systolic Congestive Heart Failure -Last echo 2015 showed EF 45%, systolic dysfunction, pacemaker -F/U echocardiogram -Daily weights, monitor I/Os History of Atrial Fibrillation -Rate is controlled -EKG showed AV paced rhythm with prolonged AV conduction -F/U echocardiogram -Holding ASA in light of GI bleed Hypertension -Currently normatensive Abdominal Pain -Abdominal US(04/06) shows possible hepatic parenchymal disease vd fatty infiltration, nodular/cirrhotic liver contour, blood flow reversal w/in portal vein suggestive of portal HTN. CBD ductal dilitation ~6mm, cholelithiasis, GBW thickening~4mm + edema, abd ascites. -Unable to perform MRCP 2/2 pacemaker -F/U CT abd/pelvis -General Surgery on consult Pancytopenia -Breast cancer w/ left sided mastectomy(2016), chemo hx unknown -Tamoxifen Acute Renal Failure -Cr 1.6 -> 1.9 today -Renal US(04/06) shows B/L atrophic kidneys, renal cysts, increased echogenicity of renal parenchymal cortices suggestive of medical renal disease. Abd ascites -Nephro consult Dr. Saravia COPD -Duonebs q6 PRN shortness of breath Plan to be discussed with Dr Jordan Lock DO PGY-2 <Brando Ortega - Last Filed: 04/08/18 19:59> Objective - Vital Signs/Intake and Output Vital Signs (last 24 hours): Temp Pulse Resp BP Pulse Ox 97.7 F 94 H 20 132/84 99 04/08/18 15:47 04/08/18 15:47 04/08/18 15:47 04/08/18 15:47 04/08/18 15:47 - Medications Medications: Current Medications Albuterol/Ipratropium (Duoneb 3 Mg/0.5 Mg (3 Ml) Ud) 3 ml INH RQ6 PRN PRN Reason: Shortness of Breath Last Admin: 04/08/18 08:46 Dose: 3 ml Hydromorphone HCl (Dilaudid) 1 mg IVP Q4H PRN PRN Reason: Pain, moderate (4-7) Last Admin: 04/07/18 20:03 Dose: 1 mg Piperacillin Sod/Tazobactam Sod (Zosyn 2.25 Gm Iv Premix) 2.25 gm in 50 mls @ 50 mls/hr IVPB Q8 [facility] Last Admin: 04/08/18 14:11 Dose: 50 mls/hr Ondansetron HCl (Zofran Inj) 4 mg IVP Q4H PRN PRN Reason: Nausea/Vomiting Pantoprazole Sodium (Protonix Inj) 40 mg IVP Q12 [facility] Last Admin: 04/08/18 10:32 Dose: 40 mg Temazepam (Restoril) 15 mg PO HS [facility] Last Admin: 04/07/18 21:50 Dose: 15 mg - Labs Labs: 04/08/18 14:00 04/08/18 07:12 PT 14.4 SECONDS (9.7-12.2) H 04/08/18 07:12 INR 1.3 04/08/18 07:12 APTT 35 SECONDS (21-34) H 04/05/18 18:45 Assessment and Plan - Assessment and Plan (Free Text) Assessment: Patient seen and evaluated personally by me Plan of care d/w the medical office scheduler and as documented
[2018-04-08] MEDS ORDERED: Pneumococcal 23-Valent Vaccine IM ONE (10:00)
--- NOTE | 2018-04-08 11:19 | CP.PCM.PN ---
<Ghazal Pritchett L - Last Filed: 04/08/18 19:26> Subjective - Date & Time of Evaluation Date of Evaluation: 04/08/18 Time of Evaluation: 11:18 - Subjective Subjective: Resident Progress Note for Hospitalist Service Patient examined at bedside. Patient states that she is feeling better. Denies abdominal pain at this time. Denies fever, chills, chest pain, shortness of breath, nausea, vomiting, dysuria. Objective - Vital Signs/Intake and Output Vital Signs (last 24 hours): Temp Pulse Resp BP Pulse Ox 97.9 F 87 20 119/62 100 04/08/18 08:11 04/08/18 08:11 04/08/18 08:11 04/08/18 08:11 04/08/18 08:11 Intake and Output: 04/08/18 04/08/18 06:59 18:59 Intake Total 1200 Balance 1200 - Medications Medications: Current Medications Albuterol/Ipratropium (Duoneb 3 Mg/0.5 Mg (3 Ml) Ud) 3 ml INH RQ6 PRN PRN Reason: Shortness of Breath Last Admin: 04/08/18 08:46 Dose: 3 ml Hydromorphone HCl (Dilaudid) 1 mg IVP Q4H PRN PRN Reason: Pain, moderate (4-7) Last Admin: 04/07/18 20:03 Dose: 1 mg Piperacillin Sod/Tazobactam Sod (Zosyn 2.25 Gm Iv Premix) 2.25 gm in 50 mls @ 50 mls/hr IVPB Q8 [facility] Last Admin: 04/08/18 05:27 Dose: 50 mls/hr Sodium Chloride (Sodium Chloride 0.9%) 1,000 mls @ 50 mls/hr IV .Q20H [facility] Stop: 04/08/18 14:59 Last Admin: 04/07/18 21:57 Dose: 50 mls/hr Ondansetron HCl (Zofran Inj) 4 mg IVP Q4H PRN PRN Reason: Nausea/Vomiting Pantoprazole Sodium (Protonix Inj) 40 mg IVP Q12 [facility] Last Admin: 04/08/18 10:32 Dose: 40 mg Temazepam (Restoril) 15 mg PO HS [facility] Last Admin: 04/07/18 21:50 Dose: 15 mg - Labs Labs: 04/08/18 07:12 04/08/18 07:12 PT 14.4 SECONDS (9.7-12.2) H 04/08/18 07:12 INR 1.3 04/08/18 07:12 APTT 35 SECONDS (21-34) H 04/05/18 18:45 - Additional Findings Additional findings: - Constitutional Appears: Non-toxic, No Acute Distress - Head Exam Head Exam: ATRAUMATIC, NORMOCEPHALIC - Eye Exam Eye Exam: Normal appearance Additional comments: Left orbital prosthesis - ENT Exam ENT Exam: Mucous Membranes Dry, Normal External Ear Exam - Respiratory Exam Respiratory Exam: Clear to Auscultation Bilateral, NORMAL BREATHING PATTERN - Cardiovascular Exam Cardiovascular Exam: REGULAR RHYTHM, +S1, +S2 - GI/Abdominal Exam GI & Abdominal Exam: Normal Bowel Sounds, Soft - Extremities Exam Extremities exam: Normal Inspection - Neurological Exam Neurological exam: Alert, Oriented x3 - Skin Skin Exam: Dry, Intact, Normal Color Assessment and Plan - Assessment and Plan (Free Text) Plan: Weakness - FOBT positive - Hgb 6.8 on admission -> 9.4 - Protonix drip - 2 units PRBCs given - Continue to monitor and transfuse as needed - HAS BLED score 3 (Liver disease, Age>65, Alcohol use) - GI consulted. Recs appreciated. Abdominal pain - Hepatitis, HIV negative - Chest CT shows no acute findings in the chest. Cirrhotic liver with portal hypertension. Cholelithiasis without evidence of cholecystitis. Bulky adenopathy noted within the upper abdomen. indeterminate nodule right midlung. - Abdominal ultrasound shows increased echogenicity of the hepatic parenchymal cortex suggestive for hepatic parenxhymal disease versus fatty infiltration. Nodular/cirrhotic continue of liver. Cholelithiasis. Gallbladder wall appears thickened up to 4mm. Gallbladder wall edema. Negative Sonographic Nunez's sign. Common bile duct measures 6mm. Increased echogenicity of the bilateral renal parenchymal cortices suggestive for medical renal disrase. Atrophic kidneys. Bilateral renal cysts. urinary bladder is underdistended. Ascites throughout the abdomen. - GI consulted. Recs appreciated. 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 - Followup PMD for outpatient records MAHAD - Creatinine on admission 2.1 -> 1.9 - NS 100 ccs/hr - Renal ultrasound shows limited visualization of the aorta/IVC. increased echogencity of the bilateral renal parenchymal cortices suggestive for medical renal disease. Atrophic kidneys. Bilateral renal cysts. Urinary bladder is underdistended limiting evaluation. Ascites throughout the abdomen. Pancytopenia - Likely secondary to chemo - Heme/onc consulted. Appreciate recs. PPX - Protonix drip - SCDs Bretalya Pritchett PGY-1 <Georgia Crocker V - Last Filed: 04/08/18 20:55> Objective - Vital Signs/Intake and Output Vital Signs (last 24 hours): Temp Pulse Resp BP Pulse Ox 97.7 F 94 H 20 132/84 99 04/08/18 15:47 04/08/18 15:47 04/08/18 15:47 04/08/18 15:47 04/08/18 15:47 - Medications Medications: Current Medications Albuterol/Ipratropium (Duoneb 3 Mg/0.5 Mg (3 Ml) Ud) 3 ml INH RQ6 PRN PRN Reason: Shortness of Breath Last Admin: 04/08/18 08:46 Dose: 3 ml Carvedilol (Coreg) 3.125 mg PO BID [facility] Hydromorphone HCl (Dilaudid) 1 mg IVP Q4H PRN PRN Reason: Pain, moderate (4-7) Last Admin: 04/07/18 20:03 Dose: 1 mg Piperacillin Sod/Tazobactam Sod (Zosyn 2.25 Gm Iv Premix) 2.25 gm in 50 mls @ 50 mls/hr IVPB Q8 [facility] Last Admin: 04/08/18 14:11 Dose: 50 mls/hr Ondansetron HCl (Zofran Inj) 4 mg IVP Q4H PRN PRN Reason: Nausea/Vomiting Pantoprazole Sodium (Protonix Inj) 40 mg IVP Q12 [facility] Last Admin: 04/08/18 10:32 Dose: 40 mg Temazepam (Restoril) 15 mg PO HS [facility] Last Admin: 04/07/18 21:50 Dose: 15 mg - Labs Labs: 04/08/18 14:00 04/08/18 07:12 PT 14.4 SECONDS (9.7-12.2) H 04/08/18 07:12 INR 1.3 04/08/18 07:12 APTT 35 SECONDS (21-34) H 04/05/18 18:45 Assessment and Plan (1) Glaucoma Status: Chronic (2) Abnormal LFTs Status: Acute (3) Pancytopenia Status: Acute (4) Atrial fibrillation Status: Chronic (5) CHF (congestive heart failure) Status: Chronic (6) HTN (hypertension) Status: Chronic (7) Hypothyroidism Status: Chronic (8) COPD (chronic obstructive pulmonary disease) Status: Chronic (9) Acute renal failure Status: Acute (10) Pacemaker Status: Chronic (11) Prophylactic measure Status: Acute Attending/Attestation - Attestation I have personally seen and examined this patient.: Yes I have fully participated in the care of the patient.: Yes I have reviewed all pertinent clinical information, including history, physical exam and plan: Yes Notes (Text): Patient seen, examined, and case discussed with day-time resident. Patient seen this morning with assistance from her nurse, Tiffani accompanied with heme-oncology. Patient's family not present. Patient denies fever, denies chills, denies chest pain, denies shortness of breathe, denies abdominal pain, denies nausea/vomitting. She reports she has a history of breast cancer, cannot remember her oncologist name. 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 I spoke with hematology-oncology, will f/u with Dr Gonzales and patient's daughter , given nature of is the adenopathy in the abdomen relating to metastatic breast cancer or not. Patient was seen by GI, recommend for CT abdomen/pelvis with PO contrast. Patient seen by surgery, no intervention. Patient unable to get MRCP secondary to pacemaker; unclear if abdominal pain is related to gallbladder or not. Patient is on empiric antibiotic tover. Patient advanced to clear liquids. Restart patient on coreg 3.125mg PO bid given hx of heart failure. (1) Metastatic Disease? History of Breast Cancer Assessment/Plan * Hematology-oncology (Dr. torres)-->motion picture set grip * Will call Dr. Gonzales's office and see who the oncologist and review since patient is on Tamoxifen as outpatient * CT Chest (04/06/18): metastatic disease to the skeleton. There is a suggestion of a prominent compression fracture/compression lumbar vertebral. Cirrhotic liver with portal hypertension. Cholelithaisis. Prominent bulky adenopathy within the upper abdomen. Metastatic disease cannot be excluded. Indetermine nodules oin the urine. * Patient history of breast cancer; review of EMR: ER2/PR2 positive. * Patient is on Tamoxifen as outpatient (2) Pancytopenia Assessment & Plan: * GI (Dr. Munguia) on board-->motion picture set grip help appreciated * Hematology-oncology (Dr. Torres) on board-->motion picture set grip help appreciated * will f/u daughter and pmd. * Patient history of breast cancer; review of EMR: ER2/PR2 positive. * Patient reports last seen her hemeonc 7 months ago. * Patient reports has had mastectomy about 2 years ago; Daughter cant remember the name of her heme-onc * Patient is taking Tamoxfen as outpatient * Patient reports she takes iron supplements as outpatient. * Per daughter, patient chronic drinks beer, aspirin for atrial fibrillation. Status: Acute (3) Abnormal LFTs Liver Cirrhosis Portal Hypertension Ascites Assessment & Plan: * GI (Dr. Munguia/Dr. Cole) on board-->help on board * f/u CT abdomen/pelvis with PO contrast * General surgery (Dr. Perry) on board-->help appreciated * no surgery intervention * Abdomen US (04/06/18): increased echogenicity of the hepatic parenchymal cortex suggestive for hepatic parenxhymal disease versus fatty infiltration. Nodular/cirrhotic continue of liver. Cholelithiasis. Gallbladder wall appears thickened up to 4mm. Gallbladder wall edema. Negative Sonographic Nunez's sign. Common bile duct measures 6mm. Increased echogenicity of the bilateral renal parenchymal cortices suggestive for medical renal disrase. Atrophic kidneys. Bilateral renal cysts. urinary bladder is underdistended. Ascites throughout the abdomen. * Hepatitis panel: negative * F/u CT Abdomen/pelvis Status: Acute (4) Atrial fibrillation Assessment & Plan: * Aspirin held given concern for potential GI bleed given anemia * off rate control agent * start low dose coreg 3.125mg PO BID Status: Chronic (5) CHF (congestive heart failure), Systolic Assessment & Plan: * Cardiology (Dr. Ortega) on case-->help appreciated * prior echo from 2016; noted for mild impairment EF: 45% * Prior medications: coreg 3.125 mg bid, cardizem CD 120 mg daily, losartan 25 mg daily and lasix 20 mg daily at home; * Start low dose Coreg 3.125mg PO BID Status: Chronic (6) HTN (hypertension) Status: Chronic * monitor vital signs * Prior medications: coreg 3.125 mg bid, cardizem CD 120 mg daily, losartan 25 mg daily and lasix 20 mg daily at home * start low dose Coreg 3.125mg PO BID (7) Hypothyroidism Status: Chronic * check TSH and Free T4 (8) COPD (chronic obstructive pulmonary disease) Assessment & Plan: * Duonebs PRN shortness of breathe * CT Chest (04/06/18): metastatic disease to the skeleton. There is a suggestion of a prominent compression fracture/compression lumbar vertebral. Cirrhotic liver with portal hypertension. Cholelithaisis. Prominent bulky adenopathy within the upper abdomen. Metastatic disease cannot be excluded. * Chest xray (04/05/18): left sided pacemaker, mild venous congestion, tortuous ectatic aorta, with calcification at the aortic knob. mild cardiomegaly. Status: Chronic (9) Acute renal failure Assessment & Plan: * Nephrology (Dr. Saravia) on consult-->help appreciated * Renal US (04/06/18): limited visualization of the aorta/IVC. increased echogencity of the bilateral renal parenchymal cortices suggestive for medical rnal disease. atrophic kidneys. bilateral renal cysts. ascites throughout the abdomen. * prior in 09/2016: 0.9 Status: Acute (10) Pacemaker Status: Chronic (11) Thrombocytopenia Assessment & Plan: * Hematology-oncology on board-->help appreciated * mildly improving (12) Prophylactic measure Assessment & Plan: * off chemical anticoagulation given concern for GI bleed * Protonix 40mg IV Q12H * PT/OT eval Status: Acute (13) Glaucoma Assessment & Plan: * Patient is legally blind. Status: Chronic Disposition: I have asked resident to follow-up with PMD's office to see what her current medications are to confirm. Heme-oncology, GI, and general surgery on board. unclear if abdominal pain is related to gallbladder, cancer, or liver cirrhosis. Please see patient when daughter is available. Patient is a poor historian at baseline.
[2018-04-08] MEDS ORDERED: Sodium Chloride 0.9% 1,000 ML IV SCH (12:00)
[2018-04-08 14:09] LABS: BASO % 0.7 % (0.0-2.0); EOS # 0.1 K/uL (0.0-0.7); EOS % 1.2 % (0.0-4.0); HEMOGLOBIN 9.4 g/dL (11.0-16.0); LYMPH # 1.2 K/uL (1.0-4.3); LYMPH % 21.7 % (20.0-40.0); MEAN CELL VOLUME 93.6 fL (81.0-99.0); MEAN CORPUSCULAR HEMOGLOBIN 32.1 pg (27.0-31.0); MEAN CORPUSCULAR HGB CONC 34.2 g/dL (33.0-37.0); MEAN PLATELET VOLUME 7.1 fL (7.2-11.7); MONO # 0.4 K/uL (0.0-0.8); MONO % 7.6 % (0.0-10.0); NEUT # 3.8 K/uL (1.8-7.0); NEUT % 68.8 % (50.0-75.0); NRBC % 0.2 % (0.0-2.0); RBC 2.93 Mil/uL (3.80-5.20); RED CELL DISTRIBUTION WIDTH 20.4 % (11.5-14.5); WHITE BLOOD COUNT 5.5 K/uL (4.8-10.8)
--- NOTE | 2018-04-08 14:25 | CP.PCM.PN ---
Subjective - Date & Time of Evaluation Date of Evaluation: 04/08/18 Time of Evaluation: 14:22 - Subjective Subjective: F/U cirrhosis with pancytopenia and acute LFT elevations OB positive stool Pancytopenic Nodular liver on sonogram + gallstones, skeletal and lymph metastases on Chest CT Unable to provide history due to lethargy. D/W Dr Robert Objective - Vital Signs/Intake and Output Vital Signs (last 24 hours): Temp Pulse Resp BP Pulse Ox 97.9 F 87 20 119/62 100 04/08/18 08:11 04/08/18 12:28 04/08/18 08:11 04/08/18 08:11 04/08/18 12:28 Intake and Output: 04/08/18 04/08/18 06:59 18:59 Intake Total 1200 Balance 1200 - Medications Medications: Current Medications Albuterol/Ipratropium (Duoneb 3 Mg/0.5 Mg (3 Ml) Ud) 3 ml INH RQ6 PRN PRN Reason: Shortness of Breath Last Admin: 04/08/18 08:46 Dose: 3 ml Hydromorphone HCl (Dilaudid) 1 mg IVP Q4H PRN PRN Reason: Pain, moderate (4-7) Last Admin: 04/07/18 20:03 Dose: 1 mg Piperacillin Sod/Tazobactam Sod (Zosyn 2.25 Gm Iv Premix) 2.25 gm in 50 mls @ 50 mls/hr IVPB Q8 [facility] Last Admin: 04/08/18 14:11 Dose: 50 mls/hr Sodium Chloride (Sodium Chloride 0.9%) 1,000 mls @ 80 mls/hr IV .[id number] [facility] Stop: 04/08/18 14:59 Last Admin: 04/08/18 14:11 Dose: 80 mls/hr Ondansetron HCl (Zofran Inj) 4 mg IVP Q4H PRN PRN Reason: Nausea/Vomiting Pantoprazole Sodium (Protonix Inj) 40 mg IVP Q12 [facility] Last Admin: 04/08/18 10:32 Dose: 40 mg Temazepam (Restoril) 15 mg PO HS [facility] Last Admin: 04/07/18 21:50 Dose: 15 mg - Labs Labs: 04/08/18 14:00 04/08/18 07:12 PT 14.4 SECONDS (9.7-12.2) H 04/08/18 07:12 INR 1.3 04/08/18 07:12 APTT 35 SECONDS (21-34) H 04/05/18 18:45 - Constitutional Appears: Chronically Ill - Head Exam Head Exam: NORMOCEPHALIC - Eye Exam Eye Exam: absent: Scleral icterus - Respiratory Exam Respiratory Exam: NORMAL BREATHING PATTERN - Cardiovascular Exam Cardiovascular Exam: REGULAR RHYTHM - GI/Abdominal Exam GI & Abdominal Exam: Soft. absent: Tenderness Assessment and Plan (1) Abnormal LFTs Assessment & Plan: acute elevation of baseline LFT abnormalities. R/O liver metastases vs. cholecystitis (surg consult appreciated) Will order Abd CT Lethargic today- check ammonia level Status: Acute (2) Acute renal failure Status: Acute (3) Ascites Status: Acute (4) Cholelithiases Assessment & Plan: No abdominal pain or tenderness at present poor surgical candidate Status: Acute (5) Pancytopenia Assessment & Plan: Likely from cirrhosis. Pancytopenia has been chronic. ?recent chemo? This too could cause pancytopenia Not a candidate for endoscopic procedures at this time Status: Acute (6) COPD (chronic obstructive pulmonary disease) Status: Chronic (7) Pacemaker Status: Chronic (8) Breast CA Status: Chronic
[2018-04-08] MEDS ORDERED: Iohexol 240 (50 ml) PO ONE (15:15)
--- NOTE | 2018-04-08 16:27 | CP.PCM.PN ---
Subjective - Date & Time of Evaluation Date of Evaluation: 04/08/18 Time of Evaluation: 06:45 - Subjective Subjective: Patient seen and examined. Denies abdominal pain. Denies n/v. No Abdominal tenderness. Objective - Vital Signs/Intake and Output Vital Signs (last 24 hours): Temp Pulse Resp BP Pulse Ox 97.7 F 94 H 20 132/84 99 04/08/18 15:47 04/08/18 15:47 04/08/18 15:47 04/08/18 15:47 04/08/18 15:47 Intake and Output: 04/08/18 04/08/18 06:59 18:59 Intake Total 1200 Balance 1200 - Medications Medications: Current Medications Albuterol/Ipratropium (Duoneb 3 Mg/0.5 Mg (3 Ml) Ud) 3 ml INH RQ6 PRN PRN Reason: Shortness of Breath Last Admin: 04/08/18 08:46 Dose: 3 ml Hydromorphone HCl (Dilaudid) 1 mg IVP Q4H PRN PRN Reason: Pain, moderate (4-7) Last Admin: 04/07/18 20:03 Dose: 1 mg Piperacillin Sod/Tazobactam Sod (Zosyn 2.25 Gm Iv Premix) 2.25 gm in 50 mls @ 50 mls/hr IVPB Q8 [facility] Last Admin: 04/08/18 14:11 Dose: 50 mls/hr Ondansetron HCl (Zofran Inj) 4 mg IVP Q4H PRN PRN Reason: Nausea/Vomiting Pantoprazole Sodium (Protonix Inj) 40 mg IVP Q12 [facility] Last Admin: 04/08/18 10:32 Dose: 40 mg Temazepam (Restoril) 15 mg PO HS [facility] Last Admin: 04/07/18 21:50 Dose: 15 mg - Labs Labs: 04/08/18 14:00 04/08/18 07:12 PT 14.4 SECONDS (9.7-12.2) H 04/08/18 07:12 INR 1.3 04/08/18 07:12 APTT 35 SECONDS (21-34) H 04/05/18 18:45 - Constitutional Appears: No Acute Distress - Head Exam Head Exam: NORMOCEPHALIC - Eye Exam Eye Exam: Normal appearance - ENT Exam ENT Exam: Mucous Membranes Moist - Respiratory Exam Respiratory Exam: NORMAL BREATHING PATTERN - Cardiovascular Exam Cardiovascular Exam: +S1, +S2 - GI/Abdominal Exam GI & Abdominal Exam: Soft. absent: Distended, Firm, Guarding, Rigid, Tenderness , Rebound - Neurological Exam Neurological Exam: Alert, Awake - Skin Skin Exam: Dry, Intact, Warm Assessment and Plan - Assessment and Plan (Free Text) Assessment: 83F w. biliary colic Plan: -Resume diet -F/u tolerance -IVF -Pain management/anti-emetics -serial abd exams / Trend labs -Unable to do MRCP 2/2 pacemaker -Child Class B: 30% alice-operative mortality rate -No plans for surgical intervention -No abdominal tenderness or complaints of abdominal pain today -F/u AM labs -D/w Dr. Orlando Ford PGY3
[2018-04-08] MEDS ORDERED: Phytonadione 1 mg/0.5 ml Inj (Neonatal) SC ONE (19:16)
--- NOTE | 2018-04-08 19:23 | CP.PCM.CON ---
History of Present Illness - History of Present Illness History of Present Illness: PI: 83F admitted with abdominal pain, found to have pancytopenia. The patient has a history of T4N1 breast cancer, HR+, [id number] negative for which she underwent mastectomy, has been on Tamoxifen since. pmh of anemia, anxiety, glaucoma/blindness, atrial fibrillation, CHF, COPD, cholelithiasis, HTN, hypothyroidism, Breast CA w. concerns for mets, and likely alcoholic liver cirrhosis initially presented to ED on 04/05 for weakness and fatigue. Surgery was consulted today for acute onset RUQ abd pain. Soon after eating hamburger she experienced acute onset RUQ pain. Pain is constant with no alleviating factors. She reports N/V. She denies diarrhea. She has never experienced this pain in the past. As per daughter, she has been eating very little recently PMH: see above PSH: mastectomy (2016), pacemaker (2010), left hip surgery Meds: MAR reviewed NKDA Social history: 5 cans of beer per day past 20 years. 2 cigarettes per week past 20 years. Denies recreational drug use. Fhx: Non-contributory Past Patient History - Infectious Disease Hx of Infectious Diseases: None - Tetanus Immunizations Tetanus Immunization: Unknown - Past Medical History & Family History Past Medical History?: Yes - Past Social History Smoking Status: Former Smoker - CARDIAC Hx Congestive Heart Failure: Yes - PULMONARY Hx Chronic Obstructive Pulmonary Disease (COPD): Yes - NEUROLOGICAL Hx Neurological Disorder: No - HEENT Hx HEENT Problems: Yes Hx Blind: Yes (ARTIFICIAL LEFT EYE, right eye blind) Hx Glaucoma: Yes (right eye) - RENAL Hx Chronic Kidney Disease: No - ENDOCRINE/METABOLIC Hx Hypothyroidism: Yes - HEMATOLOGICAL/ONCOLOGICAL Hx Anemia: Yes - INTEGUMENTARY Hx Dermatological Problems: No - MUSCULOSKELETAL/RHEUMATOLOGICAL Hx Arthritis: Yes - GASTROINTESTINAL Hx Gall Bladder Disease: Yes (GALLSTONES) - GENITOURINARY/GYNECOLOGICAL Hx Genitourinary Disorders: Yes (URINARY FREQUENCY) - PSYCHIATRIC Hx Anxiety: Yes Hx Substance Use: No - SURGICAL HISTORY Hx Surgeries: Yes Hx Breast Biopsy: Yes Hx Cardiac Catheterization: Yes Hx Eye Surgery: Yes (left eye) Hx Hysterectomy: Yes (4o years ago) Hx Mastectomy: Yes (left 08/25/16) Hx Orthopedic Surgery: Yes (left hip 10 yrs ago) - ANESTHESIA Hx Anesthesia: Yes Hx Anesthesia Reactions: No Hx Malignant Hyperthermia: No Meds Allergies/Adverse Reactions: Allergies Allergy/AdvReac Type Severity Reaction Status Date / Time No Known Allergies Allergy Verified 04/05/18 18:07 - Medications Medications: Current Medications Albuterol/Ipratropium (Duoneb 3 Mg/0.5 Mg (3 Ml) Ud) 3 ml INH RQ6 PRN PRN Reason: Shortness of Breath Last Admin: 04/08/18 08:46 Dose: 3 ml Hydromorphone HCl (Dilaudid) 1 mg IVP Q4H PRN PRN Reason: Pain, moderate (4-7) Last Admin: 04/07/18 20:03 Dose: 1 mg Piperacillin Sod/Tazobactam Sod (Zosyn 2.25 Gm Iv Premix) 2.25 gm in 50 mls @ 50 mls/hr IVPB Q8 [facility] Last Admin: 04/08/18 14:11 Dose: 50 mls/hr Ondansetron HCl (Zofran Inj) 4 mg IVP Q4H PRN PRN Reason: Nausea/Vomiting Pantoprazole Sodium (Protonix Inj) [address] [facility] Last Admin: 04/08/18 10:32 Dose: 40 mg Phytonadione (Vitamin K) 1 mg SC ONCE ONE Stop: 04/08/18 19:17 Temazepam (Restoril) [address] [facility] Last Admin: 04/07/18 21:50 Dose: 15 mg Results - Vital Signs Recent Vital Signs: Last Vital Signs Temp 97.7 F 04/08/18 15:47 Pulse 94 H 04/08/18 15:47 Resp 20 04/08/18 15:47 BP 132/84 04/08/18 15:47 Pulse Ox 99 04/08/18 15:47 - Labs Result Diagrams: 04/08/18 14:00 04/08/18 07:12 Labs: Laboratory Results - last 24 hr 04/07/18 04/07/18 04/07/18 08:58 19:32 21:22 WBC 6.3 RBC 3.04 L Hgb 9.8 L Hct 28.3 L MCV 93.1 D MCH 32.3 H MCHC 34.7 RDW 20.3 H Plt Count 94 L MPV 7.6 Neut % (Auto) 75.7 H Lymph % (Auto) 13.8 L [place] % (Auto) 9.9 Eos % (Auto) 0.3 Baso % (Auto) 0.3 Neut # (Auto) 4.7 Lymph # (Auto) 0.9 L [place] # (Auto) 0.6 Eos # (Auto) 0.0 Baso # (Auto) 0.0 PT INR Sodium Potassium Chloride Carbon Dioxide Anion Gap BUN Creatinine Est GFR ( Amer) Est GFR (Non-Af Amer) POC Glucose (mg/dL) 120 H Random Glucose Calcium Phosphorus Magnesium Total Bilirubin AST ALT Alkaline Phosphatase Total Protein Albumin Globulin Albumin/Globulin Ratio Procalcitonin PTH w/Ion &Tot Calcium 232 H 04/08/18 04/08/18 04/08/18 07:12 07:12 07:12 WBC 5.6 RBC 2.86 L Hgb 9.5 L Hct 27.2 L MCV 95.2 D MCH 33.3 H MCHC 35.0 RDW 20.5 H Plt Count 92 L MPV 7.4 Neut % (Auto) 70.5 Lymph % (Auto) 20.5 [place] % (Auto) 7.4 Eos % (Auto) 1.0 Baso % (Auto) 0.6 Neut # (Auto) 3.9 Lymph # (Auto) 1.1 [place] # (Auto) 0.4 Eos # (Auto) 0.1 Baso # (Auto) 0.0 PT 14.4 H INR 1.3 Sodium 139 Potassium 5.2 Chloride 107 Carbon Dioxide 23 Anion Gap 14 BUN 55 H Creatinine 1.9 H Est GFR ( Amer) 31 Est GFR (Non-Af Amer) 25 POC Glucose (mg/dL) Random Glucose 105 Calcium 8.8 Phosphorus 3.4 Magnesium 2.3 Total Bilirubin 2.5 H AST 218 H ALT 122 H Alkaline Phosphatase 531 H Total Protein 6.5 Albumin 3.5 Globulin 3.0 Albumin/Globulin Ratio 1.1 Procalcitonin PTH w/Ion &Tot Calcium 04/08/18 04/08/18 07:12 14:00 WBC 5.5 RBC 2.93 L Hgb 9.4 L Hct 27.5 L MCV 93.6 MCH 32.1 H MCHC 34.2 RDW 20.4 H Plt Count 85 L MPV 7.1 L Neut % (Auto) 68.8 Lymph % (Auto) 21.7 [place] % (Auto) 7.6 Eos % (Auto) 1.2 Baso % (Auto) 0.7 Neut # (Auto) 3.8 Lymph # (Auto) 1.2 [place] # (Auto) 0.4 Eos # (Auto) 0.1 Baso # (Auto) 0.0 PT INR Sodium Potassium Chloride Carbon Dioxide Anion Gap BUN Creatinine Est GFR ( Amer) Est GFR (Non-Af Amer) POC Glucose (mg/dL) Random Glucose Calcium Phosphorus Magnesium Total Bilirubin AST ALT Alkaline Phosphatase Total Protein Albumin Globulin Albumin/Globulin Ratio Procalcitonin 0.43 PTH w/Ion &Tot Calcium Assessment & Plan - Assessment and Plan (Free Text) Assessment: Locally advanced breast cancer, s/p left mastectomy in 2017, for locally advanced, HR+ disease, on PO Tamoxifen, now with several issuea Possibility of new bone mets Increased LFTs in the setting of liver cirrhosis, ? cholecystitis, ? liver mets , ? Tamoxifen effect Bulky intraabdominal LN, encasing major blood vessels,?metastatic disease, ?new primary like lymphoma, ? benign infectious etiologies Have discussed all of the above with the daughter, she wants all tests procedures like biopsy done, and wants to actively pursue treatments for her mother. Plan- Hold Tamoxifen, if/when patient stabilizes, will need aromatase inhibitor with bisphosphonates for bone disease, will check tumor markers for now. If feasible, will have IR attempt biopsy of retroperitoneal lymh nodes, unless liver shows metastatic disease. Check results of CAT scan abdomen
--- NOTE | 2018-04-08 22:40 | CARD ---
APPROVED REPORT Date of service: 04/08/2018 EXAM: Two-dimensional and M-mode echocardiogram with Doppler and color Doppler. Other Information Quality : Technically LimitedRhythm : Technically limited study due to body habitus. INDICATION Dyspnea Atrial Fibrillation LV Function:SystolicDiastolic Congestive Heart Failure COPD Surgery/Intervention Pacemaker: RISK FACTORS Hypertension M-Mode DIMENSIONS TAPSE2.1 cm Mitral Valve MV E Kectdddj79.0cm/sMV A Xnhtxjfc39.9cm/sE/A ratio0.7 TDI E/Lateral E'0.0E/Medial E'0.0 Tricuspid Valve TR Peak [id number]/sTR Peak [id number] <Conclusion> Limited study Left ventricle: thickness: normal; size: normal; overall ejection fraction: 65%: diastolic filling pressures: elevated Mitral valve: annulus: normal: leaflets: normal: excursion: normal; no significant trans-mitral gradient: no significant incompetence: left atrium: normal Aortic valve: leaflets: normal: excursion: normal; no significant trans-aortic gradient: No significant incompetence: aortic root: normal Right sided Structures: Pacing lead noted; Pulmonary valve: normal; no significant incompetence; Tricuspid valve: normal; no significant incompetence: Intra-cardiac hemodynamics: pulmonary systolic pressures:40mmHg; central venous pressures: normal No pericardial effusion
--- NOTE | 2018-04-08 23:50 | CARD ---
APPROVED REPORT Date of service: 04/06/2018 EKG Measurement Heart [id number] <Conclusion> Atrial-sensed ventricular-paced rhythm with prolonged AV conduction Abnormal ECG
[2018-04-09] MEDS: Piperacill/Tazo 2.25gm in Dex 2.25 GM/50 ML BAG IVPB SCH ×3 (05:22→22:21)
--- NOTE | 2018-04-09 07:07 | CP.PCM.PN ---
Subjective - Date & Time of Evaluation Date of Evaluation: 04/09/18 Time of Evaluation: 07:06 - Subjective Subjective: Resident Progress Note for Hospitalist Service Patient examined at bedside. No acute events overnight. Objective - Vital Signs/Intake and Output Vital Signs (last 24 hours): Temp Pulse Resp BP Pulse Ox 98 F 102 H 20 145/77 96 04/09/18 00:00 04/09/18 00:00 04/09/18 00:00 04/09/18 00:00 04/09/18 00:00 Intake and Output: 04/09/18 04/09/18 06:59 18:59 Intake Total 300 Balance 300 - Medications Medications: Current Medications Albuterol/Ipratropium (Duoneb 3 Mg/0.5 Mg (3 Ml) Ud) 3 ml INH RQ6 PRN PRN Reason: Shortness of Breath Last Admin: 04/08/18 08:46 Dose: 3 ml Carvedilol (Coreg) 3.125 mg PO BID [facility] Hydromorphone HCl (Dilaudid) 1 mg IVP Q4H PRN PRN Reason: Pain, moderate (4-7) Last Admin: 04/07/18 20:03 Dose: 1 mg Piperacillin Sod/Tazobactam Sod (Zosyn 2.25 Gm Iv Premix) 2.25 gm in 50 mls @ 50 mls/hr IVPB Q8 [facility] Last Admin: 04/09/18 05:22 Dose: 50 mls/hr Ondansetron HCl (Zofran Inj) 4 mg IVP Q4H PRN PRN Reason: Nausea/Vomiting Pantoprazole Sodium (Protonix Inj) 40 mg IVP Q12 [facility] Last Admin: 04/08/18 21:52 Dose: 40 mg Temazepam (Restoril) 15 mg PO HS [facility] Last Admin: 04/08/18 21:59 Dose: Not Given - Labs Labs: 04/08/18 14:00 04/08/18 07:12 PT 14.4 SECONDS (9.7-12.2) H 04/08/18 07:12 INR 1.3 04/08/18 07:12 APTT 35 SECONDS (21-34) H 04/05/18 18:45
--- NOTE | 2018-04-09 08:02 | CP.PCM.PN ---
Subjective - Date & Time of Evaluation Date of Evaluation: 04/09/18 Time of Evaluation: 06:45 - Subjective Subjective: General Surgery Progress Note for Dr. Perry Patient was seen and examined today at bedside in no acute distress. Nurse reports no overnight events. Patient was able to have a BM last night. Denies CP , SOB, f/c, n/v. Improved abdominal pain and tolerating diet. Objective - Vital Signs/Intake and Output Vital Signs (last 24 hours): Temp Pulse Resp BP Pulse Ox 98 F 102 H 20 145/77 96 04/09/18 00:00 04/09/18 00:00 04/09/18 00:00 04/09/18 00:00 04/09/18 00:00 Intake and Output: 04/09/18 04/09/18 06:59 18:59 Intake Total 300 Balance 300 - Medications Medications: Current Medications Albuterol/Ipratropium (Duoneb 3 Mg/0.5 Mg (3 Ml) Ud) 3 ml INH RQ6 PRN PRN Reason: Shortness of Breath Last Admin: 04/08/18 08:46 Dose: 3 ml Carvedilol (Coreg) 3.125 mg PO BID [facility] Hydromorphone HCl (Dilaudid) 1 mg IVP Q4H PRN PRN Reason: Pain, moderate (4-7) Last Admin: 04/07/18 20:03 Dose: 1 mg Piperacillin Sod/Tazobactam Sod (Zosyn 2.25 Gm Iv Premix) 2.25 gm in 50 mls @ 50 mls/hr IVPB Q8 [facility] Last Admin: 04/09/18 05:22 Dose: 50 mls/hr Ondansetron HCl (Zofran Inj) 4 mg IVP Q4H PRN PRN Reason: Nausea/Vomiting Pantoprazole Sodium (Protonix Inj) 40 mg IVP Q12 [facility] Last Admin: 04/08/18 21:52 Dose: 40 mg Temazepam (Restoril) 15 mg PO HS [facility] Last Admin: 04/08/18 21:59 Dose: Not Given - Labs Labs: 04/08/18 14:00 04/08/18 07:12 PT 14.4 SECONDS (9.7-12.2) H 04/08/18 07:12 INR 1.3 04/08/18 07:12 APTT 35 SECONDS (21-34) H 04/05/18 18:45 - Constitutional Appears: Non-toxic, No Acute Distress - Head Exam Head Exam: ATRAUMATIC, NORMOCEPHALIC - ENT Exam ENT Exam: Mucous Membranes Moist, Normal Exam - Respiratory Exam Respiratory Exam: NORMAL BREATHING PATTERN. absent: Rales, Rhonchi, Respiratory Distress, Stridor - Cardiovascular Exam Cardiovascular Exam: +S1, +S2 - GI/Abdominal Exam GI & Abdominal Exam: Soft. absent: Firm, Guarding, Rigid, Rebound - Neurological Exam Neurological Exam: Alert, Awake, Oriented x3 - Skin Skin Exam: Dry, Intact, Normal Color, Warm Assessment and Plan - Assessment and Plan (Free Text) Assessment: 83yoF with biliary colic Plan: - tolerating reg diet - cont IVF - no abdominal tenderness or other abdominal complaint today - cont analgesics and anti-emetics prn - serial abdominal exams, trend labs - unable to do MRCP 2/2 pacemaker - Child Class B: 30% alice-operative mortality rate - no plans for surgical intervention - signing off, please reconsult if necessary - discussed with Dr. Orlando Pritchett PGY1
[2018-04-09 08:07] LABS: BASO % 0.5 % (0.0-2.0); EOS # 0.1 K/uL (0.0-0.7); HEMOGLOBIN 8.6 g/dL (11.0-16.0); LYMPH # 0.9 K/uL (1.0-4.3); LYMPH % 20.9 % (20.0-40.0); MEAN CELL VOLUME 94.7 fL (81.0-99.0); MEAN CORPUSCULAR HEMOGLOBIN 32.5 pg (27.0-31.0); MEAN CORPUSCULAR HGB CONC 34.3 g/dL (33.0-37.0); MONO # 0.5 K/uL (0.0-0.8); MONO % 10.7 % (0.0-10.0); NEUT # 2.9 K/uL (1.8-7.0); NEUT % 64.9 % (50.0-75.0); NRBC % 0.7 % (0.0-2.0); RBC 2.66 Mil/uL (3.80-5.20); WHITE BLOOD COUNT 4.5 K/uL (4.8-10.8)
[2018-04-09 08:10] LABS: INR 1.4; PROTHROMBIN TIME 14.8 SECONDS (9.7-12.2)
[2018-04-09 08:50] LABS: ALT/SGPT 172 U/L (9-52); AST/SGOT 395 U/L (14-36); BLOOD UREA NITROGEN 50 mg/dL (7-17); CALCIUM 9.1 mg/dl (8.6-10.4); GFR NON-AFRICAN AMERICAN 24
--- NOTE | 2018-04-09 09:02 | VASCLAB ---
Date of service: 04/08/2018 PROCEDURE: Lower Extremity Venous Duplex Exam. HISTORY: Evaluate calf tenderness PRIORS: None. TECHNIQUE: Bilateral common femoral, femoral, popliteal and posterior tibial, peroneal and great saphenous veins were evaluated. Flow was assessed with color Doppler, compressibility, assessment of phasic flow and augmentation response. Report prepared by Umer Kirkland, BS, RVT FINDINGS: RIGHT: 1. Common Femoral Vein: 1.1. Compressibility - Fully compressible: Thrombus - None : Flow - Phasic: Augmentation -Normal: Reflux - None. 2. Femoral Vein: 2.1. Compressibility - Fully compressible: Thrombus - None : Flow - Phasic: Augmentation -Normal: Reflux - None. 3. Popliteal Vein: 3.1. Compressibility - Fully compressible: Thrombus - None : Flow - Phasic: Augmentation -Normal: Reflux - None. 4. Posterior Tibial Vein: 4.1. Compressibility - Fully compressible: Thrombus - None: Flow - Phasic: Augmentation -Normal: Reflux - None. 5. Peroneal Vein: 5.1. Compressibility - Fully compressible: Thrombus - None: Flow - Phasic: Augmentation -Normal: Reflux - None. 6. Great Saphenous Vein: 6.1. Compressibility - Fully compressible: Thrombus - None: Flow - Phasic: Augmentation - Normal: Reflux - None. LEFT: 1. Common Femoral Vein: 1.1. Compressibility - Fully compressible: Thrombus - None: Flow - Phasic: Augmentation -Normal: Reflux - None. 2. Femoral Vein: 2.1. Compressibility - Fully compressible: Thrombus - None: Flow - Phasic: Augmentation -Normal: Reflux - None. 3. Popliteal Vein: 3.1. Compressibility - Fully compressible: Thrombus - None : Flow - Phasic: Augmentation -Normal: Reflux - None. 4. Posterior Tibial Vein: 4.1. Compressibility - Fully compressible: Thrombus - None: Flow - Phasic: Augmentation -Normal: Reflux - None. 5. Peroneal Vein: 5.1. Compressibility - Fully compressible: Thrombus - None: Flow - Phasic: Augmentation -Normal: Reflux - None. 6. Great Saphenous Vein: 6.1. Compressibility - Fully compressible: Thrombus - None: Flow - Phasic: Augmentation - Normal: Reflux - None. OTHER FINDINGS: Right: None significant. Left: None significant. IMPRESSION: Right: No evidence of deep or superficial vein thrombosis of the right lower extremity. Normal valve function noted of the right side. Left: No evidence of deep or superficial vein thrombosis of the left lower extremity. Normal valve function noted of the left side.
--- NOTE | 2018-04-09 09:16 | CP.PCM.PN ---
<Jaime Mariee - Last Filed: 04/09/18 13:33> Subjective - Date & Time of Evaluation Date of Evaluation: 04/09/18 Time of Evaluation: 09:16 - Subjective Subjective: Progress Note for 's Service Patient seen and examined at bedside. Per nursing no acute events occurred overnight. Patient reports no complaints during today's visit. Patient is AOX2 and denies any chest pain, fevers, chills, nausea,vomiting, dizziness, or any other complaints. Objective - Vital Signs/Intake and Output Vital Signs (last 24 hours): Temp Pulse Resp BP Pulse Ox 98.9 F 100 H 20 149/78 99 04/09/18 08:00 04/09/18 08:00 04/09/18 08:00 04/09/18 08:00 04/09/18 08:00 Intake and Output: 04/09/18 04/09/18 06:59 18:59 Intake Total 300 Balance 300 - Medications Medications: Current Medications Albuterol/Ipratropium (Duoneb 3 Mg/0.5 Mg (3 Ml) Ud) 3 ml INH RQ6 PRN PRN Reason: Shortness of Breath Last Admin: 04/08/18 08:46 Dose: 3 ml Carvedilol (Coreg) 3.125 mg PO BID [facility] Hydromorphone HCl (Dilaudid) 1 mg IVP Q4H PRN PRN Reason: Pain, moderate (4-7) Last Admin: 04/07/18 20:03 Dose: 1 mg Piperacillin Sod/Tazobactam Sod (Zosyn 2.25 Gm Iv Premix) 2.25 gm in 50 mls @ 50 mls/hr IVPB Q8 [facility] Last Admin: 04/09/18 05:22 Dose: 50 mls/hr Ondansetron HCl (Zofran Inj) 4 mg IVP Q4H PRN PRN Reason: Nausea/Vomiting Pantoprazole Sodium (Protonix Inj) 40 mg IVP Q12 [facility] Last Admin: 04/08/18 21:52 Dose: 40 mg Temazepam (Restoril) 15 mg PO HS [facility] Last Admin: 04/08/18 21:59 Dose: Not Given - Labs Labs: 04/09/18 07:52 04/09/18 07:52 PT 14.8 SECONDS (9.7-12.2) H 04/09/18 07:52 INR 1.4 04/09/18 07:52 APTT 35 SECONDS (21-34) H 04/05/18 18:45 - Head Exam Head Exam: ATRAUMATIC, NORMAL INSPECTION - Eye Exam Eye Exam: EOMI, Normal appearance, PERRL. absent: Periorbital tenderness Pupil Exam: NORMAL ACCOMODATION, PERRL - ENT Exam ENT Exam: Mucous Membranes Moist, Normal Oropharynx - Respiratory Exam Respiratory Exam: Clear to Ausculation Bilateral, NORMAL BREATHING PATTERN. absent: Chest Wall Tenderness, Prolonged Expiratory Phase, Respiratory Distress - Cardiovascular Exam Cardiovascular Exam: REGULAR RHYTHM, +S1, +S2 - GI/Abdominal Exam GI & Abdominal Exam: Soft, Normal Bowel Sounds. absent: Hyperactive Bowel Sounds - Back Exam Back Exam: NORMAL INSPECTION. absent: CVA tenderness (R), paraspinal tenderness - Neurological Exam Neurological Exam: Alert, Awake - Psychiatric Exam Psychiatric exam: Normal Affect, Normal Mood - Skin Skin Exam: Dry, Intact Assessment and Plan - Assessment and Plan (Free Text) Plan: 1.Acute kidney injury Assessment & Plan: BUN 50 Today. Cr 2.0 Today Pre-renal etiology superimposed on likely some degree of CKD; renal function improved after prbc transfusion; additionally, may have been over-diuresed at home (was on lasix and losartan); continue gentle IVF w/ NS at 60 cc/hr 2.CHF (congestive heart failure) Assessment & Plan: Currently asymptomatic/euvolemic on exam; low dose coreg increased to 6.25 mg bid (Hold if SBP less than 110 or Heart rate less than 60) continue to hold losartan and diuretic; 3.HTN (hypertension) Assessment & Plan: BP currently controlled without coreg.;lowdose coreg increased to 6.25mg BID with blood pressure parameters (Hold if SBP less than 110 or Heart rate less than 60) 4.Anemia s/p 2units PRBC's Hgb today 8.6 today. Will continue to monitor. 5. Choledocholithiasis vs. cholecystitis vs. biliary colic -Patient seen and not a good candiate for surgery at this time. -Child class B score: 30% mortality rate -Surgery following. Plan discussed with . Jaime Mariee-PGY2 <Rc Saravia - Last Filed: 04/10/18 06:37> Objective - Vital Signs/Intake and Output Vital Signs (last 24 hours): Temp Pulse Resp BP Pulse Ox 98.2 F 86 20 148/84 100 04/10/18 03:43 04/10/18 03:43 04/10/18 03:43 04/10/18 03:43 04/10/18 00:00 Intake and Output: 04/09/18 04/10/18 18:59 06:59 Intake Total 1031 Output Total 600 Balance 431 - Medications Medications: Current Medications Albuterol/Ipratropium (Duoneb 3 Mg/0.5 Mg (3 Ml) Ud) 3 ml INH RQ6 PRN PRN Reason: Shortness of Breath Last Admin: 04/09/18 19:03 Dose: 3 ml Carvedilol (Coreg) 6.25 mg PO BID [facility] Last Admin: 04/09/18 17:57 Dose: 6.25 mg Furosemide (Lasix) 40 mg IVP ONCE PRN PRN Reason: Swelling Last Admin: 04/09/18 20:53 Dose: 40 mg Hydromorphone HCl (Dilaudid) 1 mg IVP Q4H PRN PRN Reason: Pain, moderate (4-7) Last Admin: 04/07/18 20:03 Dose: 1 mg Piperacillin Sod/Tazobactam Sod (Zosyn 2.25 Gm Iv Premix) 2.25 gm in 50 mls @ 50 mls/hr IVPB Q8 [facility] Last Admin: 04/10/18 05:44 Dose: 50 mls/hr Methylprednisolone (Solu-Medrol) 125 mg IVP ONCE PRN PRN Reason: Allergy symptoms Last Admin: 04/09/18 20:53 Dose: 125 mg Ondansetron HCl (Zofran Inj) 4 mg IVP Q4H PRN PRN Reason: Nausea/Vomiting Pantoprazole Sodium (Protonix Inj) 40 mg IVP Q12 [facility] Last Admin: 04/09/18 21:16 Dose: 40 mg Temazepam (Restoril) 15 mg PO HS [facility]IAM Last Admin: 04/09/18 22:21 Dose: 15 mg - Labs Labs: 04/09/18 07:52 04/09/18 07:52 PT 14.8 SECONDS (9.7-12.2) H 04/09/18 07:52 INR 1.4 04/09/18 07:52 APTT 35 SECONDS (21-34) H 04/05/18 18:45 Assessment and Plan (1) Acute kidney injury Status: Acute (2) CHF (congestive heart failure) Status: Chronic (3) HTN (hypertension) Status: Chronic (4) Anemia Status: Acute Attending/Attestation - Attestation I have personally seen and examined this patient.: Yes I have fully participated in the care of the patient.: Yes I have reviewed all pertinent clinical information, including history, physical exam and plan: Yes Notes (Text): Patient seen and examined; I agree with the resident's note as above with the following additions/edits: Patient with history of breast CA, htn, admitted with liver dysfunction, found to have evidence of metastatic disease on imaging; Patient to undergo biopsy of liver lesion; agree with primary team to hold IVF while giving blood products to avoid volume overload in the setting of diastolic CHF by recent echo; Etiology of worsening of renal function over past few months unclear (serum creat 1.2 a few months ago); likely simply progression of CKD with significant renal atrophy on imaging; patient does have mild proteinuria so will pursue further serologic workup; Increasing coreg dose to 6.25 mg bid for elevated BP; continue to hold ARB/ diuretic;
--- NOTE | 2018-04-09 09:57 | CP.PCM.PN ---
<YarelyBretalya L - Last Filed: 04/09/18 18:56> Subjective - Date & Time of Evaluation Date of Evaluation: 04/09/18 Time of Evaluation: 09:45 - Subjective Subjective: Resident Note for Hospitalist Service Patient examined at bedside. No acute events overnight. States that she is feeling better today. Has no other complaints at this time. Patient denies abdominal pain. Denies headache, dizziness, chest pain, shortness of breath, changes in bowel movements, dysuria. Objective - Vital Signs/Intake and Output Vital Signs (last 24 hours): Temp Pulse Resp BP Pulse Ox 98.9 F 100 H 20 149/78 99 04/09/18 08:00 04/09/18 08:00 04/09/18 08:00 04/09/18 08:00 04/09/18 08:00 Intake and Output: 04/09/18 04/09/18 06:59 18:59 Intake Total 300 Balance 300 - Medications Medications: Current Medications Albuterol/Ipratropium (Duoneb 3 Mg/0.5 Mg (3 Ml) Ud) 3 ml INH RQ6 PRN PRN Reason: Shortness of Breath Last Admin: 04/08/18 08:46 Dose: 3 ml Carvedilol (Coreg) 3.125 mg PO BID [facility] Last Admin: 04/09/18 09:19 Dose: 3.125 mg Hydromorphone HCl (Dilaudid) 1 mg IVP Q4H PRN PRN Reason: Pain, moderate (4-7) Last Admin: 04/07/18 20:03 Dose: 1 mg Piperacillin Sod/Tazobactam Sod (Zosyn 2.25 Gm Iv Premix) 2.25 gm in 50 mls @ 50 mls/hr IVPB Q8 [facility] Last Admin: 04/09/18 05:22 Dose: 50 mls/hr Ondansetron HCl (Zofran Inj) 4 mg IVP Q4H PRN PRN Reason: Nausea/Vomiting Pantoprazole Sodium (Protonix Inj) 40 mg IVP Q12 [facility] Last Admin: 04/09/18 09:19 Dose: 40 mg Temazepam (Restoril) 15 mg PO HS [facility] Last Admin: 04/08/18 21:59 Dose: Not Given - Labs Labs: 04/09/18 07:52 04/09/18 07:52 PT 14.8 SECONDS (9.7-12.2) H 04/09/18 07:52 INR 1.4 04/09/18 07:52 APTT 35 SECONDS (21-34) H 04/05/18 18:45 - Additional Findings Additional findings: - Constitutional Appears: Non-toxic, No Acute Distress - Head Exam Head Exam: ATRAUMATIC, NORMOCEPHALIC - Eye Exam Eye Exam: Normal appearance Additional comments: Left orbital prosthesis - ENT Exam ENT Exam: Mucous Membranes Dry, Normal External Ear Exam - Respiratory Exam Respiratory Exam: Clear to Auscultation Bilateral, NORMAL BREATHING PATTERN - Cardiovascular Exam Cardiovascular Exam: REGULAR RHYTHM, +S1, +S2 - GI/Abdominal Exam GI & Abdominal Exam: Normal Bowel Sounds, Soft - Extremities Exam Extremities exam: Normal Inspection - Neurological Exam Neurological exam: Alert, Oriented x3 - Skin Skin Exam: Dry, Intact, Normal Color Assessment and Plan - Assessment and Plan (Free Text) Plan: Weakness - FOBT positive - Hgb 6.8 on admission -> 8.6 - Protonix drip - 2 units PRBCs given - Continue to monitor and transfuse as needed - HAS BLED score 3 (Liver disease, Age>65, Alcohol use) - GI consulted. Recs appreciated. Abdominal pain - Hepatitis, HIV negative - Chest CT shows no acute findings in the chest. Cirrhotic liver with portal hypertension. Cholelithiasis without evidence of cholecystitis. Bulky adenopathy noted within the upper abdomen. indeterminate nodule right midlung. - Abdominal ultrasound shows increased echogenicity of the hepatic parenchymal cortex suggestive for hepatic parenxhymal disease versus fatty infiltration. Nodular/cirrhotic continue of liver. Cholelithiasis. Gallbladder wall appears thickened up to 4mm. Gallbladder wall edema. Negative Sonographic Nunez's sign. Common bile duct measures 6mm. Increased echogenicity of the bilateral renal parenchymal cortices suggestive for medical renal disrase. Atrophic kidneys. Bilateral renal cysts. urinary bladder is underdistended. Ascites throughout the abdomen. - Abd/pelvis CT shows nodular hepatic contour. Hypertrophy of caudate lobe. Underlying lesions cannot be excluded. Cholelithiasis. Diffuse bilateral renal cortical thinning consistent with chronic renal insufficiency. Bilateral low- density renal lesions likely cysts. Upper abdominal bulky adenopathy, celiac, and portal caval regions. - GI consulted. Recs appreciated. 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 - Followup PMD for outpatient records - Heme/onc consulted. Recs appreciated. - Per heme/onc hold tamoxifen. Patient will need aromatase inhibitor with bisphosphonates when stabilized. MAAHD - NS 60 ccs/hr - Renal ultrasound shows limited visualization of the aorta/IVC. increased echogencity of the bilateral renal parenchymal cortices suggestive for medical renal disease. Atrophic kidneys. Bilateral renal cysts. Urinary bladder is underdistended limiting evaluation. Ascites throughout the abdomen. - Nephrology consulted. Recs appreciated. Pancytopenia - Likely secondary to cirrhosis and chemo per GI - Heme/onc and GI consulted. Recs appreciated. PPX - Protonix drip - SCDs Dispo: Patient to undergo lymph node biopsy . Ghazal Pritchett PGY-1 <Carlo Chu - Last Filed: 04/12/18 20:35> Objective - Vital Signs/Intake and Output Vital Signs (last 24 hours): Temp Pulse Resp BP Pulse Ox 97.5 F L 75 24 138/83 98 04/12/18 15:00 04/12/18 15:00 04/12/18 15:00 04/12/18 15:00 04/12/18 15:00 - Medications Medications: Current Medications Albuterol/Ipratropium (Duoneb 3 Mg/0.5 Mg (3 Ml) Ud) 3 ml INH RQ6 PRN PRN Reason: Shortness of Breath Last Admin: 04/09/18 19:03 Dose: 3 ml Carvedilol (Coreg) 6.25 mg PO BID [facility] Last Admin: 04/12/18 17:42 Dose: 6.25 mg Furosemide (Lasix) 40 mg IVP ONCE PRN PRN Reason: Swelling Last Admin: 04/09/18 20:53 Dose: 40 mg Sodium Chloride (Sodium Chloride 0.9%) 1,000 mls @ 60 mls/hr IV [id number] [facility] Last Admin: 04/12/18 08:15 Dose: Not Given Lactobacillus Acidophilus (Bacid Acidophilus) 1 cap PO BID [facility] Last Admin: 04/12/18 17:42 Dose: 1 cap Methylprednisolone (Solu-Medrol) 125 mg IVP ONCE PRN PRN Reason: Allergy symptoms Last Admin: 08/21/18 20:53 Dose: 125 mg Ondansetron HCl (Zofran Inj) 4 mg IVP Q4H PRN PRN Reason: Nausea/Vomiting Pantoprazole Sodium (Protonix Inj) 40 mg IVP Q12 [facility] Last Admin: 04/12/18 09:24 Dose: Not Given Temazepam (Restoril) 15 mg PO HS [facility] Last Admin: 04/11/18 21:48 Dose: Not Given - Labs Labs: 04/12/18 11:27 04/12/18 03:53 PT 15.2 SECONDS (9.7-12.2) H 04/12/18 11:27 INR 1.4 04/12/18 11:27 APTT 26 SECONDS (21-34) 04/12/18 11:27 Attending/Attestation - Attestation I have personally seen and examined this patient.: Yes I have fully participated in the care of the patient.: Yes I have reviewed all pertinent clinical information, including history, physical exam and plan: Yes Notes (Text): 04/12/18 20:35 This is a late entry Care of this patient was gone over in detail with the resident Carlo Chu D.O.
--- NOTE | 2018-04-09 12:13 | CT ---
PROCEDURE: CT Abdomen and Pelvis without IV contrast. HISTORY: Breast CA, LFT elevation COMPARISON: Abdominal ultrasound performed 04/06/18 TECHNIQUE: Contiguous axial images of the abdomen and pelvis. Oral contrast was administered. No IV contrast given. Coronal and Sagittal reformats generated and reviewed. Radiation dose: Total exam DLP = 1113.94 mGy-cm. This CT exam was performed using one or more of the following dose reduction techniques: Automated exposure control, adjustment of the mA and/or kV according to patient size, and/or use of iterative reconstruction technique. FINDINGS: There is limited evaluation of the solid organs without the administration of IV contrast. Examination also markedly limited by habitus. LOWER THORAX: Partially imaged cardiomegaly. Trace left pleural effusion and bibasilar atelectasis. No visible pneumothorax. LIVER: Heterogeneous hepatic parenchyma. Nodular hepatic contour. Hypertrophy of the caudate lobe. Underlying lesions cannot be excluded given the absence of IV contrast. Small perihepatic fluid. GALLBLADDER AND BILE DUCTS: Cholelithiasis. PANCREAS: Unremarkable. SPLEEN: Unremarkable. ADRENALS: Unremarkable. KIDNEYS AND URETERS: No hydronephrosis or obstructing renal calculus. Diffuse bilateral renal cortical thinning consistent with chronic renal insufficiency. Bilateral low-density renal lesions likely cysts. No obstructing calculus or hydronephrosis identified. BLADDER: Evidence of bladder diverticulum. REPRODUCTIVE: Uterus is absent consistent with hysterectomy. APPENDIX: The appendix appears within normal limits of caliber. No secondary signs of acute appendicitis. BOWEL: The stomach is nondistended. The bowel loops appear within normal limits of caliber without evidence of intestinal obstruction. Moderate diverticulosis without CT evidence of acute diverticulitis. PERITONEUM: No significant free fluid. No definite free air. LYMPH NODES: Upper abdominal bulky adenopathy, celiac and portal caval regions. VASCULATURE: No aortic aneurysm. Dense atherosclerotic calcifications. BONES: Three surgical screws, left femoral neck and head. Sclerotic osseous changes concerning for metastatic disease. Evidence of pathologic compression fracture with significant loss of height and posterior retropulsion, L1. Mild pathologic fracture of the superior endplate of T8. OTHER FINDINGS: Small fat containing periumbilical hernia. IMPRESSION: Evidence of metastatic osseous disease. Pathologic fractures involving T8 and L1 as above. Evidence of cirrhosis and portal hypertension. Hepatic metastatic lesion cannot be excluded in the absence of IV contrast. Bulky adenopathy noted within the upper abdomen worrisome for metastatic disease. Additional findings as above. Preliminary impression was provided by virtual radiologic.
[2018-04-09] MEDS ORDERED: Sodium Chloride 0.9% 1,000 ML IV SCH (12:30)
--- NOTE | 2018-04-09 14:21 | CP.PCM.PN ---
Subjective - Date & Time of Evaluation Date of Evaluation: 04/09/18 Time of Evaluation: 14:18 - Subjective Subjective: f/u anemia. Friend is present Denies RB, melena, abdom pain, constip, diarrhea, GR, cough vomiting Objective - Vital Signs/Intake and Output Vital Signs (last 24 hours): Temp Pulse Resp BP Pulse Ox 98.9 F 100 H 20 149/78 99 04/09/18 08:00 04/09/18 08:00 04/09/18 08:00 04/09/18 08:00 04/09/18 08:00 Intake and Output: 04/09/18 04/09/18 06:59 18:59 Intake Total 300 Balance 300 - Medications Medications: Current Medications Albuterol/Ipratropium (Duoneb 3 Mg/0.5 Mg (3 Ml) Ud) 3 ml INH RQ6 PRN PRN Reason: Shortness of Breath Last Admin: 04/08/18 08:46 Dose: 3 ml Carvedilol (Coreg) 6.25 mg PO BID [facility] Hydromorphone HCl (Dilaudid) 1 mg IVP Q4H PRN PRN Reason: Pain, moderate (4-7) Last Admin: 04/07/18 20:03 Dose: 1 mg Piperacillin Sod/Tazobactam Sod (Zosyn 2.25 Gm Iv Premix) 2.25 gm in 50 mls @ 50 mls/hr IVPB Q8 [facility] Last Admin: 04/09/18 13:54 Dose: 50 mls/hr Sodium Chloride (Sodium Chloride 0.9%) 1,000 mls @ 60 mls/hr IV .[id number] [facility] Ondansetron HCl (Zofran Inj) 4 mg IVP Q4H PRN PRN Reason: Nausea/Vomiting Pantoprazole Sodium (Protonix Inj) 40 mg IVP Q12 [facility] Last Admin: 04/09/18 09:19 Dose: 40 mg Temazepam (Restoril) 15 mg PO HS [facility] Last Admin: 04/08/18 21:59 Dose: Not Given - Labs Labs: 04/09/18 07:52 04/09/18 07:52 PT 14.8 SECONDS (9.7-12.2) H 04/09/18 07:52 INR 1.4 04/09/18 07:52 APTT 35 SECONDS (21-34) H 04/05/18 18:45 - Constitutional Appears: Well - Respiratory Exam Respiratory Exam: Clear to Ausculation Bilateral - Cardiovascular Exam Cardiovascular Exam: RRR - GI/Abdominal Exam GI & Abdominal Exam: Soft, Normal Bowel Sounds. absent: Tenderness - Neurological Exam Neurological Exam: Alert, Oriented x3 Assessment and Plan (1) Abnormal LFTs Assessment & Plan: consider meds, tomoxifen, vs liver GB. Tamoxif on hold. CHeck labs. Consider MRCP Status: Acute (2) Pancytopenia Status: Acute (3) Anemia Assessment & Plan: No overt bleeding. Consdier EGD. CT shows bone mets- can not assess liver mets. Seen by Dr Robert. Status: Acute (4) Atrial fibrillation Status: Chronic (5) Hypothyroidism Status: Chronic (6) Pacemaker Status: Acute (7) Breast CA Status: Chronic (8) Glaucoma Status: Chronic (9) Cholelithiases Assessment & Plan: Consider MRCP Status: Acute (10) Ascites Assessment & Plan: Check weights, diuretics. Status: Acute
[2018-04-09] MEDS: Albuterol-Ipratrop 3 mg / 0.5 (3 ml) UD INH PRN (19:03)
[2018-04-10] MEDS: Piperacill/Tazo 2.25gm in Dex 2.25 GM/50 ML BAG IVPB SCH ×2 (05:44→21:26)
--- NOTE | 2018-04-10 06:33 | CP.PCM.PN ---
Subjective - Date & Time of Evaluation Date of Evaluation: 04/09/18 Time of Evaluation: 09:30 - Subjective Subjective: Patient seen and evaluated Denies chest pain and dyspnea Objective - Vital Signs/Intake and Output Vital Signs (last 24 hours): Temp Pulse Resp BP Pulse Ox 98.2 F 86 20 148/84 100 04/10/18 03:43 04/10/18 03:43 04/10/18 03:43 04/10/18 03:43 04/10/18 00:00 Intake and Output: 04/09/18 04/10/18 18:59 06:59 Intake Total 1031 Output Total 600 Balance 431 - Medications Medications: Current Medications Albuterol/Ipratropium (Duoneb 3 Mg/0.5 Mg (3 Ml) Ud) 3 ml INH RQ6 PRN PRN Reason: Shortness of Breath Last Admin: 04/09/18 19:03 Dose: 3 ml Carvedilol (Coreg) 6.25 mg PO BID [facility] Last Admin: 04/09/18 17:57 Dose: 6.25 mg Furosemide (Lasix) 40 mg IVP ONCE PRN PRN Reason: Swelling Last Admin: 04/09/18 20:53 Dose: 40 mg Hydromorphone HCl (Dilaudid) 1 mg IVP Q4H PRN PRN Reason: Pain, moderate (4-7) Last Admin: 04/07/18 20:03 Dose: 1 mg Piperacillin Sod/Tazobactam Sod (Zosyn 2.25 Gm Iv Premix) 2.25 gm in 50 mls @ 50 mls/hr IVPB Q8 [facility] Last Admin: 04/10/18 05:44 Dose: 50 mls/hr Methylprednisolone (Solu-Medrol) 125 mg IVP ONCE PRN PRN Reason: Allergy symptoms Last Admin: 04/09/18 20:53 Dose: 125 mg Ondansetron HCl (Zofran Inj) 4 mg IVP Q4H PRN PRN Reason: Nausea/Vomiting Pantoprazole Sodium (Protonix Inj) 40 mg IVP Q12 [facility] Last Admin: 04/09/18 21:16 Dose: 40 mg Temazepam (Restoril) 15 mg PO HS [facility] Last Admin: 04/09/18 22:21 Dose: 15 mg - Labs Labs: 04/09/18 07:52 04/09/18 07:52 PT 14.8 SECONDS (9.7-12.2) H 04/09/18 07:52 INR 1.4 04/09/18 07:52 APTT 35 SECONDS (21-34) H 04/05/18 18:45 Assessment and Plan - Assessment and Plan (Free Text) Assessment: Weakness - FOBT positive - Hgb 6.8 on admission -> 8.6 - Protonix drip - 2 units PRBCs given - Continue to monitor and transfuse as needed - HAS BLED score 3 (Liver disease, Age>65, Alcohol use) - GI consulted. Recs appreciated. Abdominal pain - Hepatitis, HIV negative - Chest CT shows no acute findings in the chest. Cirrhotic liver with portal hypertension. Cholelithiasis without evidence of cholecystitis. Bulky adenopathy noted within the upper abdomen. indeterminate nodule right midlung. - Abdominal ultrasound shows increased echogenicity of the hepatic parenchymal cortex suggestive for hepatic parenxhymal disease versus fatty infiltration. Nodular/cirrhotic continue of liver. Cholelithiasis. Gallbladder wall appears thickened up to 4mm. Gallbladder wall edema. Negative Sonographic Nunez's sign. Common bile duct measures 6mm. Increased echogenicity of the bilateral renal parenchymal cortices suggestive for medical renal disrase. Atrophic kidneys. Bilateral renal cysts. urinary bladder is underdistended. Ascites throughout the abdomen. - Abd/pelvis CT shows nodular hepatic contour. Hypertrophy of caudate lobe. Underlying lesions cannot be excluded. Cholelithiasis. Diffuse bilateral renal cortical thinning consistent with chronic renal insufficiency. Bilateral low- density renal lesions likely cysts. Upper abdominal bulky adenopathy, celiac, and portal caval regions. - GI consulted. Recs appreciated. 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 - Followup PMD for outpatient records - Heme/onc consulted. Recs appreciated. - Per heme/onc hold tamoxifen. Patient will need aromatase inhibitor with bisphosphonates when stabilized. MAHAD - NS 60 ccs/hr - Renal ultrasound shows limited visualization of the aorta/IVC. increased echogencity of the bilateral renal parenchymal cortices suggestive for medical renal disease. Atrophic kidneys. Bilateral renal cysts. Urinary bladder is underdistended limiting evaluation. Ascites throughout the abdomen. - Nephrology consulted. Recs appreciated. Pancytopenia - Likely secondary to cirrhosis and chemo per GI - Heme/onc and GI consulted. Recs appreciated. PPX - Protonix drip - SCDs Dispo: Patient to undergo lymph node biopsy . Cardiac: Hx of PPM
[2018-04-10 07:07] LABS: BASO % 0.4 % (0.0-2.0); EOS # 0.1 K/uL (0.0-0.7); EOS % 1.4 % (0.0-4.0); HEMOGLOBIN 10.3 g/dL (11.0-16.0); LYMPH # 1.3 K/uL (1.0-4.3); LYMPH % 27.8 % (20.0-40.0); MEAN CELL VOLUME 93.5 fL (81.0-99.0); MEAN CORPUSCULAR HEMOGLOBIN 31.9 pg (27.0-31.0); MEAN CORPUSCULAR HGB CONC 34.1 g/dL (33.0-37.0); MEAN PLATELET VOLUME 8.3 fL (7.2-11.7); MONO # 0.2 K/uL (0.0-0.8); MONO % 5.2 % (0.0-10.0); NEUT % 65.2 % (50.0-75.0); NRBC % 0.3 % (0.0-2.0); RBC 3.24 Mil/uL (3.80-5.20); RED CELL DISTRIBUTION WIDTH 18.4 % (11.5-14.5); WHITE BLOOD COUNT 4.6 K/uL (4.8-10.8)
[2018-04-10 07:51] LABS: ALB/GLOB RATIO 1.1 (1.0-2.1); ALBUMIN 3.4 g/dL (3.5-5.0); CALCIUM 8.6 mg/dl (8.6-10.4)
--- NOTE | 2018-04-10 10:15 | CP.PCM.CON ---
History of Present Illness - History of Present Illness History of Present Illness: Palliative consult requested by Doctor Gladys Chu for goals of care and Code status discussion Patient is a 83 yo female admitted from home with decreased appetite and worsening lethargy over last week. Patient has know Hx of breast cancer, left mastectomy and post chemo. The CT scan chest was significant for bone mets and CT abd/pelvis indicated cirrhosis , liver mets and pathological fractures to lower spine.. Patient is started on Zosyn IV, Dilaudid 1 mg IV for pain and Lasix. PMH: legally blind,left breast mastectomy, widely spread metastatic disease, anemia, OA, CHF,COPD, left chest PPM Soc. Hx: single, lives at home, Vietnamese speaking only, daughter Ghazala involved in care Fam. Hx: unobtainable from patient due to condition Review of Systems - Review of Systems All systems: reviewed and no additional remarkable complaints except Review of Systems: ROS unobtainable from patient due to weakness and lethargy, ROS obtained from nursing. Per nursing, patient is comfortable and afebrile Past Patient History - Infectious Disease Hx of Infectious Diseases: None - Tetanus Immunizations Tetanus Immunization: Unknown - Past Medical History & Family History Past Medical History?: Yes - Past Social History Smoking Status: Former Smoker - CARDIAC Hx Congestive Heart Failure: Yes - PULMONARY Hx Chronic Obstructive Pulmonary Disease (COPD): Yes - NEUROLOGICAL Hx Neurological Disorder: No - HEENT Hx HEENT Problems: Yes Hx Blind: Yes (ARTIFICIAL LEFT EYE, right eye blind) Hx Glaucoma: Yes (right eye) - RENAL Hx Chronic Kidney Disease: No - ENDOCRINE/METABOLIC Hx Hypothyroidism: Yes - HEMATOLOGICAL/ONCOLOGICAL Hx Anemia: Yes - INTEGUMENTARY Hx Dermatological Problems: No - MUSCULOSKELETAL/RHEUMATOLOGICAL Hx Arthritis: Yes - GASTROINTESTINAL Hx Gall Bladder Disease: Yes (GALLSTONES) - GENITOURINARY/GYNECOLOGICAL Hx Genitourinary Disorders: Yes (URINARY FREQUENCY) - PSYCHIATRIC Hx Anxiety: Yes Hx Substance Use: No - SURGICAL HISTORY Hx Surgeries: Yes Hx Breast Biopsy: Yes Hx Cardiac Catheterization: Yes Hx Eye Surgery: Yes (left eye) Hx Hysterectomy: Yes (4o years ago) Hx Mastectomy: Yes (left 08/25/16) Hx Orthopedic Surgery: Yes (left hip 10 yrs ago) - ANESTHESIA Hx Anesthesia: Yes Hx Anesthesia Reactions: No Hx Malignant Hyperthermia: No Meds Allergies/Adverse Reactions: Allergies Allergy/AdvReac Type Severity Reaction Status Date / Time No Known Allergies Allergy Verified 04/05/18 18:07 - Medications Medications: Current Medications Albuterol/Ipratropium (Duoneb 3 Mg/0.5 Mg (3 Ml) Ud) 3 ml INH RQ6 PRN PRN Reason: Shortness of Breath Last Admin: 04/09/18 19:03 Dose: 3 ml Carvedilol (Coreg) 6.25 mg PO BID [facility] Last Admin: 04/09/18 17:57 Dose: 6.25 mg Furosemide (Lasix) 40 mg IVP ONCE PRN PRN Reason: Swelling Last Admin: 04/09/18 20:53 Dose: 40 mg Hydromorphone HCl (Dilaudid) 1 mg IVP Q4H PRN PRN Reason: Pain, moderate (4-7) Last Admin: 04/07/18 20:03 Dose: 1 mg Piperacillin Sod/Tazobactam Sod (Zosyn 2.25 Gm Iv Premix) 2.25 gm in 50 mls @ 50 mls/hr IVPB Q8 [facility] Last Admin: 04/10/18 05:44 Dose: 50 mls/hr Methylprednisolone (Solu-Medrol) 125 mg IVP ONCE PRN PRN Reason: Allergy symptoms Last Admin: 04/09/18 20:53 Dose: 125 mg Ondansetron HCl (Zofran Inj) 4 mg IVP Q4H PRN PRN Reason: Nausea/Vomiting Pantoprazole Sodium (Protonix Inj) 40 mg IVP Q12 [facility] Last Admin: 04/09/18 21:16 Dose: 40 mg Temazepam (Restoril) 15 mg PO HS [facility] Last Admin: 04/09/18 22:21 Dose: 15 mg Physical Exam - Constitutional Appears: No Acute Distress, Chronically Ill - Head Exam Head Exam: ATRAUMATIC, NORMAL INSPECTION, NORMOCEPHALIC - Eye Exam Eye Exam: EOMI, Normal appearance - ENT Exam ENT Exam: Mucous Membranes Moist, Normal Exam - Neck Exam Neck exam: Positive for: Normal Inspection - Respiratory Exam Respiratory Exam: Decreased Breath Sounds, NORMAL BREATHING PATTERN - Cardiovascular Exam Cardiovascular Exam: REGULAR RHYTHM - GI/Abdominal Exam GI & Abdominal Exam: Hypoactive Bowel Sounds - Rectal Exam Rectal Exam: Deferred - Extremities Exam Extremities exam: Positive for: pedal edema - Back Exam Back exam: tenderness, vertebral tenderness - Neurological Exam Neurological exam: Alert, Oriented x3 - Psychiatric Exam Psychiatric exam: Normal Affect, Normal Mood - Skin Skin Exam: Pallor Results - Vital Signs Recent Vital Signs: Last Vital Signs Temp 97.4 F L 04/10/18 07:07 Pulse 82 04/10/18 07:07 Resp 20 04/10/18 07:07 BP 149/83 04/10/18 07:07 Pulse Ox 99 04/10/18 07:07 - Labs Result Diagrams: 04/10/18 06:55 04/10/18 06:55 Labs: Laboratory Results - last 24 hr 04/09/18 04/09/18 04/09/18 11:12 15:17 15:54 WBC RBC Hgb Hct MCV MCH MCHC RDW Plt Count MPV Neut % (Auto) Lymph % (Auto) Lea % (Auto) Eos % (Auto) Baso % (Auto) Neut # (Auto) Lymph # (Auto) Lea # (Auto) Eos # (Auto) Baso # (Auto) Sodium Potassium Chloride Carbon Dioxide Anion Gap BUN Creatinine Est GFR ( Amer) Est GFR (Non-Af Amer) POC Glucose (mg/dL) 79 139 H Random Glucose Calcium Phosphorus Magnesium Total Bilirubin AST ALT Alkaline Phosphatase Total Protein Albumin Globulin Albumin/Globulin Ratio Blood Type O POSITIVE Antibody Screen Negative 04/09/18 04/10/18 04/10/18 21:02 06:55 06:55 WBC 4.6 L RBC 3.24 L Hgb 10.3 L Hct 30.3 L MCV 93.5 MCH 31.9 H MCHC 34.1 RDW 18.4 H Plt Count 82 L MPV 8.3 Neut % (Auto) 65.2 Lymph % (Auto) 27.8 Lea % (Auto) 5.2 Eos % (Auto) 1.4 Baso % (Auto) 0.4 Neut # (Auto) 3.0 Lymph # (Auto) 1.3 Lea # (Auto) 0.2 Eos # (Auto) 0.1 Baso # (Auto) 0.0 Sodium 140 Potassium 4.0 Chloride 104 Carbon Dioxide 25 Anion Gap 15 BUN 43 H Creatinine 1.7 H Est GFR ( Amer) 35 Est GFR (Non-Af Amer) 29 POC Glucose (mg/dL) 103 Random Glucose 137 H Calcium 8.6 Phosphorus 4.0 Magnesium 2.1 Total Bilirubin 4.0 H AST 271 H D ALT 164 H Alkaline Phosphatase 520 H Total Protein 6.6 Albumin 3.4 L Globulin 3.2 Albumin/Globulin Ratio 1.1 Blood Type Antibody Screen 04/10/18 07:11 WBC RBC Hgb Hct MCV MCH MCHC RDW Plt Count MPV Neut % (Auto) Lymph % (Auto) Lea % (Auto) Eos % (Auto) Baso % (Auto) Neut # (Auto) Lymph # (Auto) Lea # (Auto) Eos # (Auto) Baso # (Auto) Sodium Potassium Chloride Carbon Dioxide Anion Gap BUN Creatinine Est GFR ( Amer) Est GFR (Non-Af Amer) POC Glucose (mg/dL) 147 H Random Glucose Calcium Phosphorus Magnesium Total Bilirubin AST ALT Alkaline Phosphatase Total Protein Albumin Globulin Albumin/Globulin Ratio Blood Type Antibody Screen Assessment & Plan - Assessment and Plan (Free Text) Assessment: Palliative consult FULL CODE, there is no Advance directive on chart, PPS 10 % I reviewed medical records, all diagnostic studies, examined patient in bed Patient is alert, legally blind, Vietnamese speaking only. Patient was fed breakfast at time of exam. Vietnamese speaking PCP helped with translation. Skin is pale yellowish. T. Tyson nicole from 3.0 to 4.0. AST and ALT elevated. Patient complains to left lower back pain. Pain is worse with mobility and better with meds. Patient denies abdominal pain/ nausea. Per PCP appetite is fair. Patient denies abdominal pain after eating , the way she had it at home. BP 148/84, HR 86, AST, ALT elevated. Per Doctor Terry Palathingal note, daughter Oksana was made aware of possibility of liver mets and requested all further testing and interventions. I called daughter this morning. She is unable to come her until late after 6 pm. We agreed to have phone converstaion at 1 pm today and discuss Code status. This was shared with Doctor Wisam Chu. Impression * Chronically ill lady with metastatic disease * Legally blind * Lower back pain due to pathological fractures * Weakness Suggestions * Max assistance with ADLs * Reorient patient to time and place upon each interaction * Continue Dilaudid for pain * Promote safety Code status to be discussed today at 1 pm with daughter over the phone.
--- NOTE | 2018-04-10 12:27 | CP.PCM.PN ---
Subjective - Date & Time of Evaluation Date of Evaluation: 04/10/18 Time of Evaluation: 12:23 - Subjective Subjective: F/U anemia, stool OB positive, abnl LFTs Comfortable, eating well, denies abdominal pain Palliative Care eval read and appreciated Labs essentially unchanged Objective - Vital Signs/Intake and Output Vital Signs (last 24 hours): Temp Pulse Resp BP Pulse Ox 97.4 F L 82 20 149/83 99 04/10/18 07:07 04/10/18 07:07 04/10/18 07:07 04/10/18 07:07 04/10/18 07:07 Intake and Output: 04/10/18 04/10/18 06:59 18:59 Intake Total 1031 375 Output Total 600 Balance 431 375 - Medications Medications: Current Medications Albuterol/Ipratropium (Duoneb 3 Mg/0.5 Mg (3 Ml) Ud) 3 ml INH RQ6 PRN PRN Reason: Shortness of Breath Last Admin: 04/09/18 19:03 Dose: 3 ml Carvedilol (Coreg) 6.25 mg PO BID [facility] Last Admin: 04/10/18 10:50 Dose: 6.25 mg Furosemide (Lasix) 40 mg IVP ONCE PRN PRN Reason: Swelling Last Admin: 04/09/18 20:53 Dose: 40 mg Hydromorphone HCl (Dilaudid) 1 mg IVP Q4H PRN PRN Reason: Pain, moderate (4-7) Last Admin: 04/07/18 20:03 Dose: 1 mg Piperacillin Sod/Tazobactam Sod (Zosyn 2.25 Gm Iv Premix) 2.25 gm in 50 mls @ 50 mls/hr IVPB Q8 [facility] Last Admin: 04/10/18 05:44 Dose: 50 mls/hr Methylprednisolone (Solu-Medrol) 125 mg IVP ONCE PRN PRN Reason: Allergy symptoms Last Admin: 04/09/18 20:53 Dose: 125 mg Ondansetron HCl (Zofran Inj) 4 mg IVP Q4H PRN PRN Reason: Nausea/Vomiting Pantoprazole Sodium (Protonix Inj) 40 mg IVP Q12 [facility] Last Admin: 04/10/18 10:50 Dose: 40 mg Temazepam (Restoril) 15 mg PO HS [facility] Last Admin: 04/09/18 22:21 Dose: 15 mg - Labs Labs: 04/10/18 06:55 04/10/18 06:55 PT 14.8 SECONDS (9.7-12.2) H 04/09/18 07:52 INR 1.4 04/09/18 07:52 APTT 35 SECONDS (21-34) H 04/05/18 18:45 - Constitutional Appears: No Acute Distress, Chronically Ill - Eye Exam Eye Exam: Scleral icterus - Respiratory Exam Respiratory Exam: NORMAL BREATHING PATTERN - Cardiovascular Exam Cardiovascular Exam: REGULAR RHYTHM - GI/Abdominal Exam GI & Abdominal Exam: Soft. absent: Tenderness Assessment and Plan (1) Abnormal LFTs Assessment & Plan: Cirrhotic liver with portal HTN seen on sono and CT. This explains the LFt elevations, also bone metastases raising Alk Phos. No definite liver metastases on non contrast CT however there is a lot of bulky upper abdominal adenopathy and bone metastases seen. Will discuss with Oncologist tissue biopsy of liver vs. LNs. Most likely LN Bx to yield a diagnosis Status: Acute (2) Acute renal failure Status: Acute (3) Ascites Status: Acute (4) Cholelithiases Assessment & Plan: Not symptomatic and no ductal obstruction on radiologic studies. Would manage conservatively, as outlined in numerous prior progress notes. Status: Acute (5) Pancytopenia Assessment & Plan: Likely due to cirrhosis/portal HTN Status: Acute (6) COPD (chronic obstructive pulmonary disease) Status: Chronic (7) Pacemaker Status: Chronic (8) Breast CA Assessment & Plan: metastatic Disease present Rec: LN biopsy, to be discussed with Oncologist. Rec discuss goals of care with patient. At present appears that patient requests all diagnostics to be performed. Status: Chronic
--- NOTE | 2018-04-10 14:03 | CP.PCM.PN ---
<Ghazal Pritchett L - Last Filed: 04/10/18 19:31> Subjective - Date & Time of Evaluation Date of Evaluation: 04/10/18 Time of Evaluation: 09:00 - Subjective Subjective: Resident Progress Note for Hospitalist Service Patient examined at bedside. No acute events overnight. Patient states she has some pain on the left side of her ribs. Has no other complaints at this time. States she is eating and drinking well. Denies chest pain, shortness of breath, abdominal pain, changes in bowel movements, dysuria. Objective - Vital Signs/Intake and Output Vital Signs (last 24 hours): Temp Pulse Resp BP Pulse Ox 97.4 F L 82 20 149/83 99 04/10/18 07:07 04/10/18 07:07 04/10/18 07:07 04/10/18 07:07 04/10/18 07:07 Intake and Output: 04/10/18 04/10/18 06:59 18:59 Intake Total 1031 375 Output Total 600 Balance 431 375 - Medications Medications: Current Medications Albuterol/Ipratropium (Duoneb 3 Mg/0.5 Mg (3 Ml) Ud) 3 ml INH RQ6 PRN PRN Reason: Shortness of Breath Last Admin: 04/09/18 19:03 Dose: 3 ml Carvedilol (Coreg) 6.25 mg PO BID [facility] Last Admin: 04/10/18 10:50 Dose: 6.25 mg Furosemide (Lasix) 40 mg IVP ONCE PRN PRN Reason: Swelling Last Admin: 04/09/18 20:53 Dose: 40 mg Hydromorphone HCl (Dilaudid) 1 mg IVP Q4H PRN PRN Reason: Pain, moderate (4-7) Last Admin: 04/07/18 20:03 Dose: 1 mg Piperacillin Sod/Tazobactam Sod (Zosyn 2.25 Gm Iv Premix) 2.25 gm in 50 mls @ 50 mls/hr IVPB Q8 [facility] Last Admin: 04/10/18 05:44 Dose: 50 mls/hr Methylprednisolone (Solu-Medrol) 125 mg IVP ONCE PRN PRN Reason: Allergy symptoms Last Admin: 04/09/18 20:53 Dose: 125 mg Ondansetron HCl (Zofran Inj) 4 mg IVP Q4H PRN PRN Reason: Nausea/Vomiting Pantoprazole Sodium (Protonix Inj) 40 mg IVP Q12 [facility] Last Admin: 04/10/18 10:50 Dose: 40 mg Temazepam (Restoril) 15 mg PO HS [facility] Last Admin: 04/09/18 22:21 Dose: 15 mg - Labs Labs: 04/10/18 06:55 04/10/18 06:55 PT 14.8 SECONDS (9.7-12.2) H 04/09/18 07:52 INR 1.4 04/09/18 07:52 APTT 35 SECONDS (21-34) H 04/05/18 18:45 - Additional Findings Additional findings: - Constitutional Appears: Non-toxic, No Acute Distress - Head Exam Head Exam: ATRAUMATIC, NORMOCEPHALIC - Eye Exam Eye Exam: Normal appearance Additional comments: Left orbital prosthesis - ENT Exam ENT Exam: Mucous Membranes Dry, Normal External Ear Exam - Respiratory Exam Respiratory Exam: Clear to Auscultation Bilateral, NORMAL BREATHING PATTERN - Cardiovascular Exam Cardiovascular Exam: REGULAR RHYTHM, +S1, +S2 - GI/Abdominal Exam GI & Abdominal Exam: Normal Bowel Sounds, Soft - Extremities Exam Extremities exam: Normal Inspection - Neurological Exam Neurological exam: Alert, Oriented x3 - Skin Skin Exam: Dry, Intact, Normal Color Assessment and Plan - Assessment and Plan (Free Text) Plan: Weakness - FOBT positive - Hgb stable - Protonix drip - 2 units PRBCs given on admission - Continue to monitor and transfuse as needed - HAS BLED score 3 (Liver disease, Age>65, Alcohol use) - GI consulted. Recs appreciated. Abdominal pain - Hepatitis, HIV negative - Chest CT shows no acute findings in the chest. Cirrhotic liver with portal hypertension. Cholelithiasis without evidence of cholecystitis. Bulky adenopathy noted within the upper abdomen. indeterminate nodule right midlung. - Abdominal ultrasound shows increased echogenicity of the hepatic parenchymal cortex suggestive for hepatic parenxhymal disease versus fatty infiltration. Nodular/cirrhotic continue of liver. Cholelithiasis. Gallbladder wall appears thickened up to 4mm. Gallbladder wall edema. Negative Sonographic Nunez's sign. Common bile duct measures 6mm. Increased echogenicity of the bilateral renal parenchymal cortices suggestive for medical renal disrase. Atrophic kidneys. Bilateral renal cysts. urinary bladder is underdistended. Ascites throughout the abdomen. - Abd/pelvis CT shows nodular hepatic contour. Hypertrophy of caudate lobe. Underlying lesions cannot be excluded. Cholelithiasis. Diffuse bilateral renal cortical thinning consistent with chronic renal insufficiency. Bilateral low- density renal lesions likely cysts. Upper abdominal bulky adenopathy, celiac, and portal caval regions. - GI consulted. Recs appreciated. 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 - Followup PMD for outpatient records - Heme/onc consulted. Recs appreciated. - Per heme/onc hold tamoxifen. Patient will need aromatase inhibitor with bisphosphonates when stabilized. MAHAD - NS 60 ccs/hr - Renal ultrasound shows limited visualization of the aorta/IVC. increased echogencity of the bilateral renal parenchymal cortices suggestive for medical renal disease. Atrophic kidneys. Bilateral renal cysts. Urinary bladder is underdistended limiting evaluation. Ascites throughout the abdomen. - Nephrology consulted. Recs appreciated. Pancytopenia - Likely secondary to cirrhosis and chemo per GI - Heme/onc and GI consulted. Recs appreciated. PPX - Protonix drip - SCDs Dispo: Patient to undergo lymph node biopsy tomorrow. Ghazal Pritchett PGY-1 <Carlo Chu - Last Filed: 04/12/18 20:35> Objective - Vital Signs/Intake and Output Vital Signs (last 24 hours): Temp Pulse Resp BP Pulse Ox 97.5 F L 75 24 138/83 98 04/12/18 15:00 04/12/18 15:00 04/12/18 15:00 04/12/18 15:00 04/12/18 15:00 - Medications Medications: Current Medications Albuterol/Ipratropium (Duoneb 3 Mg/0.5 Mg (3 Ml) Ud) 3 ml INH RQ6 PRN PRN Reason: Shortness of Breath Last Admin: 04/09/18 19:03 Dose: 3 ml Carvedilol (Coreg) 6.25 mg PO BID [facility] Last Admin: 04/12/18 17:42 Dose: 6.25 mg Furosemide (Lasix) 40 mg IVP ONCE PRN PRN Reason: Swelling Last Admin: 04/09/18 20:53 Dose: 40 mg Sodium Chloride (Sodium Chloride 0.9%) 1,000 mls @ 60 mls/hr IV .[id number] [facility] Last Admin: 04/12/18 08:15 Dose: Not Given Lactobacillus Acidophilus (Bacid Acidophilus) 1 cap PO BID [facility] Last Admin: 04/12/18 17:42 Dose: 1 cap Methylprednisolone (Solu-Medrol) 125 mg IVP ONCE PRN PRN Reason: Allergy symptoms Last Admin: 04/09/18 20:53 Dose: 125 mg Ondansetron HCl (Zofran Inj) 4 mg IVP Q4H PRN PRN Reason: Nausea/Vomiting Pantoprazole Sodium (Protonix Inj) 40 mg IVP Q12 [facility] Last Admin: 04/12/18 09:24 Dose: Not Given Temazepam (Restoril) 15 mg PO HS [facility] Last Admin: 04/11/18 21:48 Dose: Not Given - Labs Labs: 04/12/18 11:27 04/12/18 03:53 PT 15.2 SECONDS (9.7-12.2) H 04/12/18 11:27 INR 1.4 04/12/18 11:27 APTT 26 SECONDS (21-34) 04/12/18 11:27 Attending/Attestation - Attestation I have personally seen and examined this patient.: Yes I have fully participated in the care of the patient.: Yes I have reviewed all pertinent clinical information, including history, physical exam and plan: Yes Notes (Text): 04/12/18 20:35 This is a late entry Care of this patient was gone over in detail with the resident Carlo Chu D.O.
[2018-04-10 18:28] LABS: CA 27.29 823 U/mL (<38)
--- NOTE | 2018-04-10 23:07 | CP.PCM.PN ---
Subjective - Date & Time of Evaluation Date of Evaluation: 04/10/18 Time of Evaluation: 08:20 - Subjective Subjective: Patient seen and evaluated Denies chest pain and dyspnea Physical examination - Additional Findings Additional findings: - Constitutional Appears: Non-toxic, No Acute Distress - Head Exam Head Exam: ATRAUMATIC, NORMOCEPHALIC - Eye Exam Eye Exam: Normal appearance Additional comments: Left orbital prosthesis - ENT Exam ENT Exam: Mucous Membranes Dry, Normal External Ear Exam - Respiratory Exam Respiratory Exam: Clear to Auscultation Bilateral, NORMAL BREATHING PATTERN - Cardiovascular Exam Cardiovascular Exam: REGULAR RHYTHM, +S1, +S2 - GI/Abdominal Exam GI & Abdominal Exam: Normal Bowel Sounds, Soft - Extremities Exam Extremities exam: Normal Inspection - Neurological Exam Neurological exam: Alert, Oriented x3 - Skin Skin Exam: Dry, Intact, Normal Color Objective - Vital Signs/Intake and Output Vital Signs (last 24 hours): Temp Pulse Resp BP Pulse Ox 97.4 F L 82 20 130/74 100 04/10/18 16:00 04/10/18 17:48 04/10/18 16:00 04/10/18 17:48 04/10/18 16:00 Intake and Output: 04/10/18 04/11/18 18:59 06:59 Intake Total 375 Balance 375 - Medications Medications: Current Medications Albuterol/Ipratropium (Duoneb 3 Mg/0.5 Mg (3 Ml) Ud) 3 ml INH RQ6 PRN PRN Reason: Shortness of Breath Last Admin: 04/09/18 19:03 Dose: 3 ml Carvedilol (Coreg) 6.25 mg PO BID [facility] Last Admin: 04/10/18 17:47 Dose: 6.25 mg Furosemide (Lasix) 40 mg IVP ONCE PRN PRN Reason: Swelling Last Admin: 04/09/18 20:53 Dose: 40 mg Hydromorphone HCl (Dilaudid) 1 mg IVP Q4H PRN PRN Reason: Pain, moderate (4-7) Last Admin: 04/07/18 20:03 Dose: 1 mg Piperacillin Sod/Tazobactam Sod (Zosyn 2.25 Gm Iv Premix) 2.25 gm in 50 mls @ 50 mls/hr IVPB Q8 [facility] Last Admin: 04/10/18 21:26 Dose: 50 mls/hr Methylprednisolone (Solu-Medrol) 125 mg IVP ONCE PRN PRN Reason: Allergy symptoms Last Admin: 04/09/18 20:53 Dose: 125 mg Ondansetron HCl (Zofran Inj) 4 mg IVP Q4H PRN PRN Reason: Nausea/Vomiting Pantoprazole Sodium (Protonix Inj) 40 mg IVP Q12 [facility] Last Admin: 04/10/18 21:29 Dose: 40 mg Temazepam (Restoril) 15 mg PO HS [facility] Last Admin: 04/10/18 22:45 Dose: 15 mg - Labs Labs: 04/10/18 06:55 04/10/18 06:55 PT 14.8 SECONDS (9.7-12.2) H 04/09/18 07:52 INR 1.4 04/09/18 07:52 APTT 35 SECONDS (21-34) H 04/05/18 18:45 Assessment and Plan - Assessment and Plan (Free Text) Assessment: Weakness - FOBT positive - Hgb stable - Protonix drip - 2 units PRBCs given on admission - Continue to monitor and transfuse as needed - HAS BLED score 3 (Liver disease, Age>65, Alcohol use) - GI consulted. Recs appreciated. Abdominal pain - Hepatitis, HIV negative - Chest CT shows no acute findings in the chest. Cirrhotic liver with portal hypertension. Cholelithiasis without evidence of cholecystitis. Bulky adenopathy noted within the upper abdomen. indeterminate nodule right midlung. - Abdominal ultrasound shows increased echogenicity of the hepatic parenchymal cortex suggestive for hepatic parenxhymal disease versus fatty infiltration. Nodular/cirrhotic continue of liver. Cholelithiasis. Gallbladder wall appears thickened up to 4mm. Gallbladder wall edema. Negative Sonographic Nunez's sign. Common bile duct measures 6mm. Increased echogenicity of the bilateral renal parenchymal cortices suggestive for medical renal disrase. Atrophic kidneys. Bilateral renal cysts. urinary bladder is underdistended. Ascites throughout the abdomen. - Abd/pelvis CT shows nodular hepatic contour. Hypertrophy of caudate lobe. Underlying lesions cannot be excluded. Cholelithiasis. Diffuse bilateral renal cortical thinning consistent with chronic renal insufficiency. Bilateral low- density renal lesions likely cysts. Upper abdominal bulky adenopathy, celiac, and portal caval regions. - GI consulted. Recs appreciated. 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 - Followup PMD for outpatient records - Heme/onc consulted. Recs appreciated. - Per heme/onc hold tamoxifen. Patient will need aromatase inhibitor with bisphosphonates when stabilized. MAHAD - NS 60 ccs/hr - Renal ultrasound shows limited visualization of the aorta/IVC. increased echogencity of the bilateral renal parenchymal cortices suggestive for medical renal disease. Atrophic kidneys. Bilateral renal cysts. Urinary bladder is underdistended limiting evaluation. Ascites throughout the abdomen. - Nephrology consulted. Recs appreciated. Pancytopenia - Likely secondary to cirrhosis and chemo per GI - Heme/onc and GI consulted. Recs appreciated. PPX - Protonix drip - SCDs
[2018-04-11] MEDS: Piperacill/Tazo 2.25gm in Dex 2.25 GM/50 ML BAG IVPB SCH ×2 (05:25→14:55)
[2018-04-11 07:22] LABS: BASO % 0.1 % (0.0-2.0); EOS % 0.4 % (0.0-4.0); HEMOGLOBIN 9.7 g/dL (11.0-16.0); LYMPH # 0.8 K/uL (1.0-4.3); LYMPH % 15.3 % (20.0-40.0); MEAN CELL VOLUME 93.2 fL (81.0-99.0); MEAN CORPUSCULAR HEMOGLOBIN 32.2 pg (27.0-31.0); MEAN CORPUSCULAR HGB CONC 34.5 g/dL (33.0-37.0); MEAN PLATELET VOLUME 7.6 fL (7.2-11.7); MONO # 0.4 K/uL (0.0-0.8); NEUT # 4.2 K/uL (1.8-7.0); NEUT % 77.2 % (50.0-75.0); NRBC % 0.3 % (0.0-2.0); RED CELL DISTRIBUTION WIDTH 18.7 % (11.5-14.5); WHITE BLOOD COUNT 5.4 K/uL (4.8-10.8)
--- NOTE | 2018-04-11 07:33 | CP.PCM.PN ---
<Jaime Mariee - Last Filed: 04/11/18 13:45> Subjective - Date & Time of Evaluation Date of Evaluation: 04/11/18 Time of Evaluation: 07:33 - Subjective Subjective: Progress Note for 's Service Patient seen and examined at bedside. Per nursing no acute events occurred overnight. Patient reports no complaints during today's visit. Patient is AOX2 and denies any chest pain, fevers, chills, nausea,vomiting, dizziness, or any other complaints. Objective - Vital Signs/Intake and Output Vital Signs (last 24 hours): Temp Pulse Resp BP Pulse Ox 97.6 F 79 20 138/77 100 04/11/18 00:00 04/11/18 00:00 04/11/18 00:00 04/11/18 00:00 04/11/18 00:00 Intake and Output: 04/11/18 04/11/18 06:59 18:59 Intake Total 400 Balance 400 - Medications Medications: Current Medications Albuterol/Ipratropium (Duoneb 3 Mg/0.5 Mg (3 Ml) Ud) 3 ml INH RQ6 PRN PRN Reason: Shortness of Breath Last Admin: 04/09/18 19:03 Dose: 3 ml Carvedilol (Coreg) 6.25 mg PO BID [facility] Last Admin: 04/10/18 17:47 Dose: 6.25 mg Furosemide (Lasix) 40 mg IVP ONCE PRN PRN Reason: Swelling Last Admin: 04/09/18 20:53 Dose: 40 mg Hydromorphone HCl (Dilaudid) 1 mg IVP Q4H PRN PRN Reason: Pain, moderate (4-7) Last Admin: 04/07/18 20:03 Dose: 1 mg Piperacillin Sod/Tazobactam Sod (Zosyn 2.25 Gm Iv Premix) 2.25 gm in 50 mls @ 50 mls/hr IVPB Q8 [facility] Last Admin: 04/11/18 05:25 Dose: 50 mls/hr Methylprednisolone (Solu-Medrol) 125 mg IVP ONCE PRN PRN Reason: Allergy symptoms Last Admin: 04/09/18 20:53 Dose: 125 mg Ondansetron HCl (Zofran Inj) 4 mg IVP Q4H PRN PRN Reason: Nausea/Vomiting Pantoprazole Sodium (Protonix Inj) 40 mg IVP Q12 [facility] Last Admin: 04/10/18 21:29 Dose: 40 mg Temazepam (Restoril) 15 mg PO HS [facility] Last Admin: 04/10/18 22:45 Dose: 15 mg - Labs Labs: 04/11/18 07:12 04/10/18 06:55 PT 14.8 SECONDS (9.7-12.2) H 04/09/18 07:52 INR 1.4 04/09/18 07:52 APTT 35 SECONDS (21-34) H 04/05/18 18:45 - Head Exam Head Exam: ATRAUMATIC, NORMAL INSPECTION, NORMOCEPHALIC - Eye Exam Eye Exam: EOMI, Normal appearance, PERRL Pupil Exam: NORMAL ACCOMODATION - ENT Exam ENT Exam: Mucous Membranes Moist, Normal Oropharynx - Respiratory Exam Respiratory Exam: Clear to Ausculation Bilateral, NORMAL BREATHING PATTERN. absent: Prolonged Expiratory Phase, Respiratory Distress - Cardiovascular Exam Cardiovascular Exam: REGULAR RHYTHM, +S1, +S2 - GI/Abdominal Exam GI & Abdominal Exam: Soft, Normal Bowel Sounds - Extremities Exam Extremities Exam: Full ROM. absent: Pedal Edema - Back Exam Back Exam: NORMAL INSPECTION. absent: CVA tenderness (R), paraspinal tenderness - Neurological Exam Neurological Exam: Alert, Awake, Oriented x3 - Psychiatric Exam Psychiatric exam: Normal Affect, Normal Mood - Skin Skin Exam: Dry, Intact, Normal Color. absent: Pallor Assessment and Plan - Assessment and Plan (Free Text) Plan: 1.Acute kidney injury Assessment & Plan: BUN 43 Today. Cr 1.7 Today. Improving. Pre-renal etiology superimposed on likely some degree of CKD; renal function improved after prbc transfusion; additionally, may have been over-diuresed at home (was on lasix and losartan) 2.CHF (congestive heart failure) Assessment & Plan: Currently asymptomatic/euvolemic on exam; Continue coreg 6.25 mg bid (Hold if SBP less than 110 or Heart rate less than 60) continue to hold losartan and diuretic; 3.HTN (hypertension) Assessment & Plan: BP currently controlled without coreg.;continue coreg increased to 6.25mg BID with blood pressure parameters (Hold if SBP less than 110 or Heart rate less than 60) 4.Anemia s/p 2units PRBC's Hgb today 9.7 today. Will continue to monitor. 5. Choledocholithiasis vs. cholecystitis vs. biliary colic -Patient seen and not a good candiate for surgery at this time. -Child class B score: 30% mortality rate -Surgery following. Dispo:Patient expected to have Biopsy today. Plan discussed with . Jaime Mariee-PGY2 <Rc Saravia - Last Filed: 04/12/18 06:52> Objective - Vital Signs/Intake and Output Vital Signs (last 24 hours): Temp Pulse Resp BP Pulse Ox 97.7 F 73 18 169/82 H 98 04/11/18 23:44 04/11/18 23:44 04/11/18 23:44 04/11/18 23:44 04/11/18 23:44 Intake and Output: 04/11/18 04/12/18 18:59 06:59 Intake Total 300 Balance 300 - Medications Medications: Current Medications Albuterol/Ipratropium (Duoneb 3 Mg/0.5 Mg (3 Ml) Ud) 3 ml INH RQ6 PRN PRN Reason: Shortness of Breath Last Admin: 04/09/18 19:03 Dose: 3 ml Carvedilol (Coreg) 6.25 mg PO BID [facility] Last Admin: 04/11/18 19:17 Dose: 6.25 mg Furosemide (Lasix) 40 mg IVP ONCE PRN PRN Reason: Swelling Last Admin: 04/09/18 20:53 Dose: 40 mg Sodium Chloride (Sodium Chloride 0.9%) 1,000 mls @ 60 mls/hr IV .[id number] [facility] Last Admin: 04/11/18 14:54 Dose: Not Given Lactobacillus Acidophilus (Bacid Acidophilus) 1 cap PO BID [facility] Last Admin: 04/11/18 19:17 Dose: 1 cap Methylprednisolone (Solu-Medrol) 125 mg IVP ONCE PRN PRN Reason: Allergy symptoms Last Admin: 04/09/18 20:53 Dose: 125 mg Ondansetron HCl (Zofran Inj) 4 mg IVP Q4H PRN PRN Reason: Nausea/Vomiting Pantoprazole Sodium (Protonix Inj) 40 mg IVP Q12 [facility] Last Admin: 04/11/18 21:26 Dose: Not Given Temazepam (Restoril) 15 mg PO HS [facility] Last Admin: 04/11/18 21:48 Dose: Not Given - Labs Labs: 04/11/18 07:12 04/12/18 03:53 PT 15.0 SECONDS (9.7-12.2) H 04/12/18 03:53 INR 1.4 04/12/18 03:53 APTT 22 SECONDS (21-34) D 04/12/18 03:53 Assessment and Plan (1) Acute kidney injury Status: Acute (2) CHF (congestive heart failure) Status: Chronic (3) HTN (hypertension) Status: Chronic (4) Anemia Status: Acute Attending/Attestation - Attestation I have personally seen and examined this patient.: Yes I have fully participated in the care of the patient.: Yes I have reviewed all pertinent clinical information, including history, physical exam and plan: Yes Notes (Text): Patient seen and examined; I agree with the resident's note as above with the following edits/additions: Patient with history of breast CA, htn, CKD, admitted with liver dysfunction, found to have evidence of metastatic disease on imaging; Has periods of delirium, reportedly pulled out IV line; renal function improving ; CKD IIIB, with fluctuations in serum creatinine likely hemodynamically mediated rather than true MAHAD; bilateral renal atrophy possibly suggestive of renal artery stenosis; further aggressive workup and treatment doesn't seem warranted in this elderly female with multiple co-morbidities; will await LN biopsy to assess overall prognosis; BP elevated, continue coreg and hold losartan for now;
[2018-04-11 07:49] LABS: ALBUMIN 3.1 g/dL (3.5-5.0); CALCIUM 8.5 mg/dl (8.6-10.4)
--- NOTE | 2018-04-11 09:00 | CP.PCM.PN ---
Subjective - Date & Time of Evaluation Date of Evaluation: 04/11/18 Time of Evaluation: 08:57 - Subjective Subjective: F/u anemia/ Denies abdom pain, fever, chills, SZ, CP, SOB, GR, RB, melena Objective - Vital Signs/Intake and Output Vital Signs (last 24 hours): Temp Pulse Resp BP Pulse Ox 97.7 F 81 20 146/78 97 04/11/18 08:00 04/11/18 08:00 04/11/18 08:00 04/11/18 08:00 04/11/18 08:00 Intake and Output: 04/11/18 04/11/18 06:59 18:59 Intake Total 400 Balance 400 - Medications Medications: Current Medications Albuterol/Ipratropium (Duoneb 3 Mg/0.5 Mg (3 Ml) Ud) 3 ml INH RQ6 PRN PRN Reason: Shortness of Breath Last Admin: 04/09/18 19:03 Dose: 3 ml Carvedilol (Coreg) 6.25 mg PO BID [facility] Last Admin: 04/10/18 17:47 Dose: 6.25 mg Furosemide (Lasix) 40 mg IVP ONCE PRN PRN Reason: Swelling Last Admin: 04/09/18 20:53 Dose: 40 mg Hydromorphone HCl (Dilaudid) 1 mg IVP Q4H PRN PRN Reason: Pain, moderate (4-7) Last Admin: 04/07/18 20:03 Dose: 1 mg Piperacillin Sod/Tazobactam Sod (Zosyn 2.25 Gm Iv Premix) 2.25 gm in 50 mls @ 50 mls/hr IVPB Q8 [facility] Last Admin: 04/11/18 05:25 Dose: 50 mls/hr Methylprednisolone (Solu-Medrol) 125 mg IVP ONCE PRN PRN Reason: Allergy symptoms Last Admin: 04/09/18 20:53 Dose: 125 mg Ondansetron HCl (Zofran Inj) 4 mg IVP Q4H PRN PRN Reason: Nausea/Vomiting Pantoprazole Sodium (Protonix Inj) 40 mg IVP Q12 [facility] Last Admin: 04/10/18 21:29 Dose: 40 mg Temazepam (Restoril) 15 mg PO HS [facility] Last Admin: 04/10/18 22:45 Dose: 15 mg - Labs Labs: 04/11/18 07:12 04/11/18 07:12 PT 14.8 SECONDS (9.7-12.2) H 04/09/18 07:52 INR 1.4 04/09/18 07:52 APTT 35 SECONDS (21-34) H 04/05/18 18:45 - Constitutional Appears: Well - Respiratory Exam Respiratory Exam: Clear to Ausculation Bilateral - Cardiovascular Exam Cardiovascular Exam: RRR - GI/Abdominal Exam GI & Abdominal Exam: Soft, Normal Bowel Sounds. absent: Tenderness, Mass, Rebound - Neurological Exam Neurological Exam: Alert, Awake, Oriented x3 Assessment and Plan (1) Abnormal LFTs Assessment & Plan: multifactorial- liver disease, consider mets, meds. LFTs starting to decrease. Status: Acute (2) Pancytopenia Status: Acute (3) Anemia Assessment & Plan: Hb- staying stable. Consider malignancy, chr dis. G pos. Rec- Oncology work-up and plan and prognosis. Status: Acute (4) Atrial fibrillation Status: Chronic (5) Hypothyroidism Status: Chronic (6) Pacemaker Status: Acute (7) Breast CA Assessment & Plan: Locally metastatic. ANd bone mets. Possibly liver mets. Nodes noted. Consider node biopsy. AScites- consider paracentesis- depending on other Oncology work up. Status: Chronic (8) Glaucoma Status: Chronic (9) Cholelithiases Assessment & Plan: No duct stones seen Status: Acute (10) Ascites Assessment & Plan: Check weights. Consider paracentesis- depending on other oncology work-up planned. Status: Acute
[2018-04-11 14:42] LABS: INR 1.5
[2018-04-11] MEDS: Sodium Chloride 0.9% 1,000 ML IV SCH (14:54)
--- NOTE | 2018-04-11 17:29 | CP.PCM.PN ---
<Ileana Dove - Last Filed: 04/11/18 17:52> Subjective - Date & Time of Evaluation Date of Evaluation: 04/11/18 Time of Evaluation: 09:40 - Subjective Subjective: Patient examined at bedside. No acute events overnight. Patient denies chest pain, SOB, adb pain, nausea. plan to go for lymph node biopsy delayed today as INR from 04/09 showed INR of 1.4. Patient also pulled IV line Objective - Vital Signs/Intake and Output Vital Signs (last 24 hours): Temp Pulse Resp BP Pulse Ox 98.1 F 81 20 154/83 H 99 04/11/18 16:00 04/11/18 16:00 04/11/18 16:00 04/11/18 16:00 04/11/18 16:00 Intake and Output: 04/11/18 04/11/18 06:59 18:59 Intake Total 400 Balance 400 - Medications Medications: Current Medications Albuterol/Ipratropium (Duoneb 3 Mg/0.5 Mg (3 Ml) Ud) 3 ml INH RQ6 PRN PRN Reason: Shortness of Breath Last Admin: 04/09/18 19:03 Dose: 3 ml Carvedilol (Coreg) 6.25 mg PO BID [facility] Last Admin: 04/11/18 09:55 Dose: 6.25 mg Furosemide (Lasix) 40 mg IVP ONCE PRN PRN Reason: Swelling Last Admin: 04/09/18 20:53 Dose: 40 mg Hydromorphone HCl (Dilaudid) 1 mg IVP Q4H PRN PRN Reason: Pain, moderate (4-7) Last Admin: 04/07/18 20:03 Dose: 1 mg Piperacillin Sod/Tazobactam Sod (Zosyn 2.25 Gm Iv Premix) 2.25 gm in 50 mls @ 50 mls/hr IVPB Q8 [facility] Last Admin: 04/11/18 14:55 Dose: Not Given Sodium Chloride (Sodium Chloride 0.9%) 1,000 mls @ 60 mls/hr IV .[id number] [facility] Last Admin: 04/11/18 14:54 Dose: Not Given Lactobacillus Acidophilus (Bacid Acidophilus) 1 cap PO BID [facility] Methylprednisolone (Solu-Medrol) 125 mg IVP ONCE PRN PRN Reason: Allergy symptoms Last Admin: 04/09/18 20:53 Dose: 125 mg Ondansetron HCl (Zofran Inj) 4 mg IVP Q4H PRN PRN Reason: Nausea/Vomiting Pantoprazole Sodium (Protonix Inj) 40 mg IVP Q12 [facility] Last Admin: 04/11/18 09:55 Dose: 40 mg Temazepam (Restoril) 15 mg PO HS [facility] Last Admin: 04/10/18 22:45 Dose: 15 mg - Labs Labs: 04/11/18 07:12 04/11/18 07:12 PT 16.0 SECONDS (9.7-12.2) H 04/11/18 14:24 INR 1.5 04/11/18 14:24 APTT 30 SECONDS (21-34) 04/11/18 14:24 - Constitutional Appears: Non-toxic, No Acute Distress - Head Exam Head Exam: ATRAUMATIC, NORMAL INSPECTION, NORMOCEPHALIC - ENT Exam ENT Exam: Mucous Membranes Moist, Normal Exam - Neck Exam Neck Exam: Normal Inspection - Respiratory Exam Respiratory Exam: Clear to Ausculation Bilateral, NORMAL BREATHING PATTERN. absent: Rales, Wheezes - Cardiovascular Exam Cardiovascular Exam: REGULAR RHYTHM, +S1, +S2. absent: Murmur - GI/Abdominal Exam GI & Abdominal Exam: Soft, Normal Bowel Sounds. absent: Distended, Tenderness - Extremities Exam Extremities Exam: Normal Capillary Refill, Normal Inspection. absent: Calf Tenderness, Joint Swelling, Pedal Edema - Neurological Exam Neurological Exam: Alert, Awake - Skin Skin Exam: Dry, Intact, Normal Color, Warm Assessment and Plan - Assessment and Plan (Free Text) Assessment: Lymphadenopathy -bulky adenopathy on abd/pelvic CT(04/08) -(04/11)plan for IR bx cancelled due to pt's elevated INR on 04/09 of 1.4. I spoke with Dr. Rodriguez who said bx would have to be postponed until after pt's INR level is corrected. Also noted, pt pulled IV access. Subsequent attempts by nursing to replace line failed. Plan for 2 FFP and am INR. Pt's daughter consented to PICC insertion. PICC nurse(Polina) gone by the time consent obtained. FFP unable to be administered due to no access. -NPO @ midnight -am INR -f/u with Michael re bx Breast cancer Hx -hold home meds for now -Dr. Robert consulted MAHAD -Cr. 1.8 today -NS @60 -monitor for fluid overload HTN -coreg 6.25 PO BID Ppx -protonix 40mg PO q12 -hold AC due to acute GI bleed -SCDs <Carlo Chu - Last Filed: 04/12/18 20:36> Objective - Vital Signs/Intake and Output Vital Signs (last 24 hours): Temp Pulse Resp BP Pulse Ox 97.5 F L 75 24 138/83 98 04/12/18 15:00 04/12/18 15:00 04/12/18 15:00 04/12/18 15:00 04/12/18 15:00 - Medications Medications: Current Medications Albuterol/Ipratropium (Duoneb 3 Mg/0.5 Mg (3 Ml) Ud) 3 ml INH RQ6 PRN PRN Reason: Shortness of Breath Last Admin: 04/09/18 19:03 Dose: 3 ml Carvedilol (Coreg) 6.25 mg PO BID [facility] Last Admin: 04/12/18 17:42 Dose: 6.25 mg Furosemide (Lasix) 40 mg IVP ONCE PRN PRN Reason: Swelling Last Admin: 04/09/18 20:53 Dose: 40 mg Sodium Chloride (Sodium Chloride 0.9%) 1,000 mls @ 60 mls/hr IV .[id number] [facility] Last Admin: 04/12/18 08:15 Dose: Not Given Lactobacillus Acidophilus (Bacid Acidophilus) 1 cap PO BID [facility] Last Admin: 04/12/18 17:42 Dose: 1 cap Methylprednisolone (Solu-Medrol) 125 mg IVP ONCE PRN PRN Reason: Allergy symptoms Last Admin: 04/09/18 20:53 Dose: 125 mg Ondansetron HCl (Zofran Inj) 4 mg IVP Q4H PRN PRN Reason: Nausea/Vomiting Pantoprazole Sodium (Protonix Inj) 40 mg IVP Q12 [facility] Last Admin: 04/12/18 09:24 Dose: Not Given Temazepam (Restoril) 15 mg PO HS [facility] Last Admin: 04/11/18 21:48 Dose: Not Given - Labs Labs: 04/12/18 11:27 04/12/18 03:53 PT 15.2 SECONDS (9.7-12.2) H 04/12/18 11:27 INR 1.4 04/12/18 11:27 APTT 26 SECONDS (21-34) 04/12/18 11:27 Attending/Attestation - Attestation I have personally seen and examined this patient.: Yes I have fully participated in the care of the patient.: Yes I have reviewed all pertinent clinical information, including history, physical exam and plan: Yes Notes (Text): 04/12/18 20:35 This is a late entry Care of this patient was gone over in detail with the resident Carlo Chu D.O.
[2018-04-11] MEDS: Lactobacillus Acidophilus 500 MU Cap PO SCH ×2 (18:00→19:17)
[2018-04-11] MEDS ORDERED: Phytonadione 10 mg/ml Inj (Adult) SC ONE (20:43)
--- NOTE | 2018-04-11 20:47 | CP.PCM.PN ---
Subjective - Date & Time of Evaluation Date of Evaluation: 04/11/18 Time of Evaluation: 20:45 - Subjective Subjective: The patient remains clinically unchanged, poor appetite, SOB on minimal exertion in bed. The biopsy was cancelled because of elevated PT/INR. She is scheduled to get FFPs, but no iv line at this time, PICC line unsuccessful. Objective - Vital Signs/Intake and Output Vital Signs (last 24 hours): Temp Pulse Resp BP Pulse Ox 98.1 F 81 20 154/83 H 99 04/11/18 16:00 04/11/18 16:00 04/11/18 16:00 04/11/18 16:00 04/11/18 16:00 - Medications Medications: Current Medications Albuterol/Ipratropium (Duoneb 3 Mg/0.5 Mg (3 Ml) Ud) 3 ml INH RQ6 PRN PRN Reason: Shortness of Breath Last Admin: 04/09/18 19:03 Dose: 3 ml Carvedilol (Coreg) 6.25 mg PO BID [facility] Last Admin: 04/11/18 19:17 Dose: 6.25 mg Furosemide (Lasix) 40 mg IVP ONCE PRN PRN Reason: Swelling Last Admin: 04/09/18 20:53 Dose: 40 mg Sodium Chloride (Sodium Chloride 0.9%) 1,000 mls @ 60 mls/hr IV .[id number] [facility] Last Admin: 04/11/18 14:54 Dose: Not Given Lactobacillus Acidophilus (Bacid Acidophilus) 1 cap PO BID [facility] Last Admin: 04/11/18 19:17 Dose: 1 cap Methylprednisolone (Solu-Medrol) 125 mg IVP ONCE PRN PRN Reason: Allergy symptoms Last Admin: 04/09/18 20:53 Dose: 125 mg Ondansetron HCl (Zofran Inj) 4 mg IVP Q4H PRN PRN Reason: Nausea/Vomiting Pantoprazole Sodium (Protonix Inj) 40 mg IVP Q12 [facility] Last Admin: 04/11/18 09:55 Dose: 40 mg Phytonadione (Vitamin K) 10 mg SC ONCE ONE Stop: 04/11/18 20:44 Temazepam (Restoril) 15 mg PO HS [facility] Last Admin: 04/10/18 22:45 Dose: 15 mg - Labs Labs: 04/11/18 07:12 04/11/18 07:12 PT 16.0 SECONDS (9.7-12.2) H 04/11/18 14:24 INR 1.5 04/11/18 14:24 APTT 30 SECONDS (21-34) 04/11/18 14:24 Assessment and Plan (1) Breast CA Assessment & Plan: 83 yo woman with metastatic breast cancer to the bones, bulky upper abdominal LN , awaiting biopsy. May need to use left arm for FFPs and then remove iv Status: Chronic
--- NOTE | 2018-04-11 22:39 | CP.PCM.PN ---
Subjective - Date & Time of Evaluation Date of Evaluation: 04/11/18 Time of Evaluation: 07:15 - Subjective Subjective: Patient seen and evaluated denies chest pain and dyspnea Objective - Vital Signs/Intake and Output Vital Signs (last 24 hours): Temp Pulse Resp BP Pulse Ox 98.1 F 81 20 154/83 H 99 04/11/18 16:00 04/11/18 16:00 04/11/18 16:00 04/11/18 16:00 04/11/18 16:00 - Medications Medications: Current Medications Albuterol/Ipratropium (Duoneb 3 Mg/0.5 Mg (3 Ml) Ud) 3 ml INH RQ6 PRN PRN Reason: Shortness of Breath Last Admin: 04/09/18 19:03 Dose: 3 ml Carvedilol (Coreg) 6.25 mg PO BID [facility] Last Admin: 04/11/18 19:17 Dose: 6.25 mg Furosemide (Lasix) 40 mg IVP ONCE PRN PRN Reason: Swelling Last Admin: 04/09/18 20:53 Dose: 40 mg Sodium Chloride (Sodium Chloride 0.9%) 1,000 mls @ 60 mls/hr IV .[id number] [facility] Last Admin: 04/11/18 14:54 Dose: Not Given Lactobacillus Acidophilus (Bacid Acidophilus) 1 cap PO BID [facility] Last Admin: 04/11/18 19:17 Dose: 1 cap Methylprednisolone (Solu-Medrol) 125 mg IVP ONCE PRN PRN Reason: Allergy symptoms Last Admin: 04/09/18 20:53 Dose: 125 mg Ondansetron HCl (Zofran Inj) 4 mg IVP Q4H PRN PRN Reason: Nausea/Vomiting Pantoprazole Sodium (Protonix Inj) 40 mg IVP Q12 [facility] Last Admin: 04/11/18 21:26 Dose: Not Given Temazepam (Restoril) 15 mg PO HS [facility] Last Admin: 04/11/18 21:48 Dose: Not Given - Labs Labs: 04/11/18 07:12 04/11/18 07:12 PT 16.0 SECONDS (9.7-12.2) H 04/11/18 14:24 INR 1.5 04/11/18 14:24 APTT 30 SECONDS (21-34) 04/11/18 14:24 Assessment and Plan - Assessment and Plan (Free Text) Assessment: Lymphadenopathy -bulky adenopathy on abd/pelvic CT(04/08) -(04/11)plan for IR bx cancelled due to pt's elevated INR on 04/09 of 1.4. I spoke with Dr. Rodriguez who said bx would have to be postponed until after pt's INR level is corrected. Also noted, pt pulled IV access. Subsequent attempts by nursing to replace line failed. Plan for 2 FFP and am INR. Pt's daughter consented to PICC insertion. PICC nurse(Polina) gone by the time consent obtained. FFP unable to be administered due to no access. -NPO @ midnight -am INR -f/u with Michael re bx Breast cancer Hx -hold home meds for now -Dr. Robert consulted MAHAD -Cr. 1.8 today -NS @60 -monitor for fluid overload HTN -coreg 6.25 PO BID Ppx -protonix 40mg PO q12 -hold AC due to acute GI bleed -SCDs
[2018-04-12 04:05] LABS: INR 1.4
[2018-04-12 04:10] LABS: ALBUMIN 3.3 g/dL (3.5-5.0); CALCIUM 8.7 mg/dl (8.6-10.4)
--- NOTE | 2018-04-12 05:52 | CP.PCM.PCO ---
Additional Comments - Additional Comments Additional Comments: Tried right EJ for purpose of giving FFP, translation done by nursing aid Kam at the bed side, patient had been intermittently confused and was some what confused in this morning. Swelling noticed in right side from last night's EJ attempt, the right EJ was felt not, cannula connected to syringe to generate negative pressure by the nurse, as we went in patient not much cooperative and started to move, small swelling noticed, the blood return was not adequate and pt was not cooperative any more, procedure aborted, pressure applied, pressure applied on the area, no visible bleeding but some swelling noticed, pressure dressing applied, patient sat back in 45degs. Patient didn't wanted any more attempts of iv line at this time.
--- NOTE | 2018-04-12 07:07 | CP.PCM.PN ---
Subjective - Date & Time of Evaluation Date of Evaluation: 04/12/18 Time of Evaluation: 07:06 - Subjective Subjective: Resident Progress Note for Hospitalist Service Patient examined at bedside. No acute events overnight. Offers no medical complaints at this time, however is distressed and wishes to go home. Denies headache, dizziness, chest pain, shortness of breath, abdominal pain, dysuria. Objective - Vital Signs/Intake and Output Vital Signs (last 24 hours): Temp Pulse Resp BP Pulse Ox 97.7 F 73 18 169/82 H 98 04/11/18 23:44 04/11/18 23:44 04/11/18 23:44 04/11/18 23:44 04/11/18 23:44 Intake and Output: 04/12/18 04/12/18 06:59 18:59 Intake Total 300 Balance 300 - Medications Medications: Current Medications Albuterol/Ipratropium (Duoneb 3 Mg/0.5 Mg (3 Ml) Ud) 3 ml INH RQ6 PRN PRN Reason: Shortness of Breath Last Admin: 04/09/18 19:03 Dose: 3 ml Carvedilol (Coreg) 6.25 mg PO BID [facility] Last Admin: 04/11/18 19:17 Dose: 6.25 mg Furosemide (Lasix) 40 mg IVP ONCE PRN PRN Reason: Swelling Last Admin: 04/09/18 20:53 Dose: 40 mg Sodium Chloride (Sodium Chloride 0.9%) 1,000 mls @ 60 mls/hr IV .[id number] [facility] Last Admin: 04/11/18 14:54 Dose: Not Given Lactobacillus Acidophilus (Bacid Acidophilus) 1 cap PO BID [facility] Last Admin: 04/11/18 19:17 Dose: 1 cap Methylprednisolone (Solu-Medrol) 125 mg IVP ONCE PRN PRN Reason: Allergy symptoms Last Admin: 04/09/18 20:53 Dose: 125 mg Ondansetron HCl (Zofran Inj) 4 mg IVP Q4H PRN PRN Reason: Nausea/Vomiting Pantoprazole Sodium (Protonix Inj) 40 mg IVP Q12 [facility] Last Admin: 04/11/18 21:26 Dose: Not Given Temazepam (Restoril) 15 mg PO HS [facility] Last Admin: 04/11/18 21:48 Dose: Not Given - Labs Labs: 04/11/18 07:12 04/12/18 03:53 PT 15.0 SECONDS (9.7-12.2) H 04/12/18 03:53 INR 1.4 04/12/18 03:53 APTT 22 SECONDS (21-34) D 04/12/18 03:53 - Additional Findings Additional findings: - Constitutional Appears: Non-toxic, No Acute Distress - Head Exam Head Exam: ATRAUMATIC, NORMOCEPHALIC - Eye Exam Eye Exam: Normal appearance Additional comments: Left orbital prosthesis - ENT Exam ENT Exam: Mucous Membranes Dry, Normal External Ear Exam - Respiratory Exam Respiratory Exam: Clear to Auscultation Bilateral, NORMAL BREATHING PATTERN - Cardiovascular Exam Cardiovascular Exam: REGULAR RHYTHM, +S1, +S2 - GI/Abdominal Exam GI & Abdominal Exam: Normal Bowel Sounds, Soft - Extremities Exam Extremities exam: Normal Inspection - Neurological Exam Neurological exam: Alert, Oriented x3 - Skin Skin Exam: Dry, Intact, Normal Color Assessment and Plan - Assessment and Plan (Free Text) Plan: Weakness - FOBT positive - Hgb stable - Protonix drip - 2 units PRBCs given on admission - Continue to monitor and transfuse as needed - HAS BLED score 3 (Liver disease, Age>65, Alcohol use) - GI consulted. Recs appreciated. Abdominal pain - Hepatitis, HIV negative - Chest CT shows no acute findings in the chest. Cirrhotic liver with portal hypertension. Cholelithiasis without evidence of cholecystitis. Bulky adenopathy noted within the upper abdomen. indeterminate nodule right midlung. - Abdominal ultrasound shows increased echogenicity of the hepatic parenchymal cortex suggestive for hepatic parenxhymal disease versus fatty infiltration. Nodular/cirrhotic continue of liver. Cholelithiasis. Gallbladder wall appears thickened up to 4mm. Gallbladder wall edema. Negative Sonographic Nunez's sign. Common bile duct measures 6mm. Increased echogenicity of the bilateral renal parenchymal cortices suggestive for medical renal disrase. Atrophic kidneys. Bilateral renal cysts. urinary bladder is underdistended. Ascites throughout the abdomen. - Abd/pelvis CT shows nodular hepatic contour. Hypertrophy of caudate lobe. Underlying lesions cannot be excluded. Cholelithiasis. Diffuse bilateral renal cortical thinning consistent with chronic renal insufficiency. Bilateral low- density renal lesions likely cysts. Upper abdominal bulky adenopathy, celiac, and portal caval regions. - GI consulted. Recs appreciated. 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 - Followup PMD for outpatient records - Heme/onc consulted. Recs appreciated. - Per heme/onc hold tamoxifen. Patient will need aromatase inhibitor with bisphosphonates when stabilized. MAHAD - NS 60 ccs/hr - Renal ultrasound shows limited visualization of the aorta/IVC. increased echogencity of the bilateral renal parenchymal cortices suggestive for medical renal disease. Atrophic kidneys. Bilateral renal cysts. Urinary bladder is underdistended limiting evaluation. Ascites throughout the abdomen. - Nephrology consulted. Recs appreciated. Pancytopenia - Likely secondary to cirrhosis and chemo per GI - Heme/onc and GI consulted. Recs appreciated. PPX - Protonix drip - SCDs Dispo: Pending permacath placement. Patient to receive chemo outpatient. Ghazal Pritchett PGY-1
--- NOTE | 2018-04-12 08:13 | CP.PCM.PN ---
Subjective - Date & Time of Evaluation Date of Evaluation: 04/12/18 Time of Evaluation: 08:13 - Subjective Subjective: Progress Note for 's Service Patient seen and examined at bedside. Per nursing no acute events occurred overnight. Patient reports no complaints during today's visit. Patient is AOX2 and denies any chest pain, fevers, chills, nausea,vomiting, dizziness, or any other complaints. Objective Objective - Vital Signs/Intake and Output Vital Signs (last 24 hours): Temp Pulse Resp BP Pulse Ox 97.7 F 73 18 169/82 H 98 04/11/18 23:44 04/11/18 23:44 04/11/18 23:44 04/11/18 23:44 04/11/18 23:44 Intake and Output: 04/12/18 04/12/18 06:59 18:59 Intake Total 300 Balance 300 - Medications Medications: Current Medications Albuterol/Ipratropium (Duoneb 3 Mg/0.5 Mg (3 Ml) Ud) 3 ml INH RQ6 PRN PRN Reason: Shortness of Breath Last Admin: 04/09/18 19:03 Dose: 3 ml Carvedilol (Coreg) 6.25 mg PO BID [facility] Last Admin: 04/11/18 19:17 Dose: 6.25 mg Furosemide (Lasix) 40 mg IVP ONCE PRN PRN Reason: Swelling Last Admin: 04/09/18 20:53 Dose: 40 mg Sodium Chloride (Sodium Chloride 0.9%) 1,000 mls @ 60 mls/hr IV .[id number] [facility] Last Admin: 04/11/18 14:54 Dose: Not Given Lactobacillus Acidophilus (Bacid Acidophilus) 1 cap PO BID [facility] Last Admin: 04/11/18 19:17 Dose: 1 cap Methylprednisolone (Solu-Medrol) 125 mg IVP ONCE PRN PRN Reason: Allergy symptoms Last Admin: 04/09/18 20:53 Dose: 125 mg Ondansetron HCl (Zofran Inj) 4 mg IVP Q4H PRN PRN Reason: Nausea/Vomiting Pantoprazole Sodium (Protonix Inj) 40 mg IVP Q12 [facility] Last Admin: 04/11/18 21:26 Dose: Not Given Temazepam (Restoril) 15 mg PO HS [facility] Last Admin: 04/11/18 21:48 Dose: Not Given - Labs Labs: 04/11/18 07:12 04/12/18 03:53 PT 15.0 SECONDS (9.7-12.2) H 04/12/18 03:53 INR 1.4 04/12/18 03:53 APTT 22 SECONDS (21-34) D 04/12/18 03:53 - Head Exam Head Exam: ATRAUMATIC, NORMAL INSPECTION, NORMOCEPHALIC - Eye Exam Eye Exam: EOMI, Normal appearance, PERRL Pupil Exam: NORMAL ACCOMODATION, PERRL - ENT Exam ENT Exam: Mucous Membranes Moist, Normal Oropharynx - Respiratory Exam Respiratory Exam: Clear to Ausculation Bilateral, NORMAL BREATHING PATTERN. absent: Respiratory Distress - Cardiovascular Exam Cardiovascular Exam: REGULAR RHYTHM, +S1, +S2 - GI/Abdominal Exam GI & Abdominal Exam: Soft, Normal Bowel Sounds - Back Exam Back Exam: NORMAL INSPECTION - Neurological Exam Neurological Exam: Alert - Psychiatric Exam Psychiatric exam: Normal Affect, Normal Mood - Skin Skin Exam: Dry, Intact, Normal Color Assessment and Plan - Assessment and Plan (Free Text) Plan: 1.Acute kidney injury Assessment & Plan: BUN 50 Today. Cr 1.5 Today. Improving. Pre-renal etiology superimposed on likely some degree of CKD; renal function improved after prbc transfusion; additionally, may have been over-diuresed at home (was on lasix and losartan) 2.CHF (congestive heart failure) Assessment & Plan: Currently asymptomatic/euvolemic on exam; Continue coreg 6.25 mg bid (Hold if SBP less than 110 or Heart rate less than 60) continue to hold losartan and diuretic; 3.HTN (hypertension) Assessment & Plan: BP currently controlled without coreg.;continue coreg increased to 6.25mg BID with blood pressure parameters (Hold if SBP less than 110 or Heart rate less than 60) 4.Anemia s/p 2units PRBC's Hgb today 10.4 today. Will continue to monitor. 5. Thrombocytopenia -Patient expected to have FFP transfusion pending line placement. 5. Choledocholithiasis vs. cholecystitis vs. biliary colic -Patient seen and not a good candiate for surgery at this time. -Child class B score: 30% mortality rate -Surgery following. Dispo:Patient expected to have FFP transfusion pending line placement. Plan discussed with . Jaime Mariee-PGY2
[2018-04-12] MEDS: Sodium Chloride 0.9% 1,000 ML IV SCH (08:15)
[2018-04-12] MEDS: Lactobacillus Acidophilus 500 MU Cap PO SCH ×2 (09:25→17:42)
[2018-04-12 11:38] LABS: BASO % 0.2 % (0.0-2.0); EOS % 0.7 % (0.0-4.0); HEMOGLOBIN 10.4 g/dL (11.0-16.0); LYMPH # 1.1 K/uL (1.0-4.3); LYMPH % 18.7 % (20.0-40.0); MEAN CELL VOLUME 93.9 fL (81.0-99.0); MEAN CORPUSCULAR HEMOGLOBIN 32.2 pg (27.0-31.0); MEAN CORPUSCULAR HGB CONC 34.3 g/dL (33.0-37.0); MEAN PLATELET VOLUME 7.7 fL (7.2-11.7); MONO # 0.5 K/uL (0.0-0.8); MONO % 7.9 % (0.0-10.0); NEUT # 4.4 K/uL (1.8-7.0); NEUT % 72.5 % (50.0-75.0); NRBC % 0.4 % (0.0-2.0); RBC 3.23 Mil/uL (3.80-5.20); RED CELL DISTRIBUTION WIDTH 18.2 % (11.5-14.5)
[2018-04-12 11:48] LABS: INR 1.4; PROTHROMBIN TIME 15.2 SECONDS (9.7-12.2)
--- NOTE | 2018-04-12 12:21 | CP.PCM.PN ---
Subjective - Date & Time of Evaluation Date of Evaluation: 04/12/18 Time of Evaluation: 12:19 - Subjective Subjective: F/u anemia/cirrhosis Denies abdominal pain. Awaiting LN biopsy, after FFP, managed by Lighter Objective - Vital Signs/Intake and Output Vital Signs (last 24 hours): Temp Pulse Resp BP Pulse Ox 98.7 F 69 20 158/85 H 96 04/12/18 08:00 04/12/18 08:00 04/12/18 08:00 04/12/18 08:00 04/12/18 08:00 Intake and Output: 04/12/18 04/12/18 06:59 18:59 Intake Total 300 Balance 300 - Medications Medications: Current Medications Albuterol/Ipratropium (Duoneb 3 Mg/0.5 Mg (3 Ml) Ud) 3 ml INH RQ6 PRN PRN Reason: Shortness of Breath Last Admin: 04/09/18 19:03 Dose: 3 ml Carvedilol (Coreg) 6.25 mg PO BID [facility] Last Admin: 04/12/18 09:25 Dose: Not Given Furosemide (Lasix) 40 mg IVP ONCE PRN PRN Reason: Swelling Last Admin: 04/09/18 20:53 Dose: 40 mg Sodium Chloride (Sodium Chloride 0.9%) 1,000 mls @ 60 mls/hr IV .[id number] [facility] Last Admin: 04/12/18 08:15 Dose: Not Given Lactobacillus Acidophilus (Bacid Acidophilus) 1 cap PO BID [facility] Last Admin: 04/12/18 09:25 Dose: Not Given Methylprednisolone (Solu-Medrol) 125 mg IVP ONCE PRN PRN Reason: Allergy symptoms Last Admin: 04/09/18 20:53 Dose: 125 mg Ondansetron HCl (Zofran Inj) 4 mg IVP Q4H PRN PRN Reason: Nausea/Vomiting Pantoprazole Sodium (Protonix Inj) 40 mg IVP Q12 [facility] Last Admin: 04/12/18 09:24 Dose: Not Given Temazepam (Restoril) 15 mg PO HS [facility] Last Admin: 04/11/18 21:48 Dose: Not Given - Labs Labs: 04/12/18 11:27 04/12/18 03:53 PT 15.2 SECONDS (9.7-12.2) H 04/12/18 11:27 INR 1.4 04/12/18 11:27 APTT 26 SECONDS (21-34) 04/12/18 11:27 - Constitutional Appears: No Acute Distress - Eye Exam Eye Exam: Scleral icterus - Respiratory Exam Respiratory Exam: NORMAL BREATHING PATTERN - Cardiovascular Exam Cardiovascular Exam: REGULAR RHYTHM - GI/Abdominal Exam GI & Abdominal Exam: Soft. absent: Tenderness, Organomegaly Assessment and Plan (1) Abnormal LFTs Assessment & Plan: cirrhosis. Stable. Suspect metastases from breast CA Arrangements being made for LN bx Status: Acute (2) Acute renal failure Status: Acute (3) Ascites Assessment & Plan: Stable Status: Acute (4) Cholelithiases Status: Acute (5) Pancytopenia Status: Acute (6) COPD (chronic obstructive pulmonary disease) Status: Chronic (7) Pacemaker Status: Chronic (8) Breast CA Status: Chronic
--- NOTE | 2018-04-12 15:57 | CP.PCM.DIS ---
<Ghazal Pritchett L - Last Filed: 04/12/18 16:30> Provider - Provider Date of Admission: 04/05/18 19:52 Attending physician: Iván Hsu MD Primary care physician: Dr. Gonzales Consults: Dr. Jordan Rodriguez Time Spent in preparation of Discharge (in minutes): 45 Diagnosis - Discharge Diagnosis (1) Breast CA Status: Chronic Priority: Medium (2) Pancytopenia Status: Chronic (3) Anemia Status: Chronic Hospital Course - Lab Results Lab Results: Micro Results 04/05/18 18:59 Blood Blood Culture - Final NO GROWTH AFTER 5 DAYS 04/05/18 18:59 Blood Gram Stain - Final TEST NOT PERFORMED 04/05/18 20:17 Blood Blood Culture - Final NO GROWTH AFTER 5 DAYS 04/05/18 20:17 Blood Gram Stain - Final TEST NOT PERFORMED Most Recent Lab Values WBC 6.0 K/uL (4.8-10.8) 04/12/18 11:27 RBC 3.23 Mil/uL (3.80-5.20) L 04/12/18 11:27 Hgb 10.4 g/dL (11.0-16.0) L 04/12/18 11:27 Hct 30.3 % (34.0-47.0) L 04/12/18 11:27 MCV 93.9 fL (81.0-99.0) 04/12/18 11:27 MCH 32.2 pg (27.0-31.0) H 04/12/18 11:27 MCHC 34.3 g/dL (33.0-37.0) 04/12/18 11:27 RDW 18.2 % (11.5-14.5) H 04/12/18 11:27 Plt Count 99 K/uL (130-400) L 04/12/18 11:27 MPV 7.7 fL (7.2-11.7) 04/12/18 11:27 Neut % (Auto) 72.5 % (50.0-75.0) 04/12/18 11:27 Lymph % (Auto) 18.7 % (20.0-40.0) L 04/12/18 11:27 Wake % (Auto) 7.9 % (0.0-10.0) 04/12/18 11:27 Eos % (Auto) 0.7 % (0.0-4.0) 04/12/18 11:27 Baso % (Auto) 0.2 % (0.0-2.0) 04/12/18 11:27 Neut # (Auto) 4.4 K/uL (1.8-7.0) 04/12/18 11:27 Lymph # (Auto) 1.1 K/uL (1.0-4.3) 04/12/18 11:27 Wake # (Auto) 0.5 K/uL (0.0-0.8) 04/12/18 11: Eos # (Auto) 0.0 K/uL (0.0-0.7) 04/12/18 11:27 Baso # (Auto) 0.0 K/uL (0.0-0.2) 04/12/18 11:27 Differential Comment 04/07/18 13:51 Retic Count 3.0 % (0.5-1.5) H D 04/06/18 07:51 PT 15.2 SECONDS (9.7-12.2) H 04/12/18 11:27 INR 1.4 04/12/18 11:27 APTT 26 SECONDS (21-34) 04/12/18 11:27 Sodium 143 mmol/L (132-148) 04/12/18 03:53 Potassium 4.0 mmol/L (3.6-5.2) 04/12/18 03:53 Chloride 105 mmol/L (98-107) 04/12/18 03:53 Carbon Dioxide 28 mmol/L (22-30) 04/12/18 03:53 Anion Gap 14 (10-20) 04/12/18 03:53 BUN 50 mg/dL (7-17) H 04/12/18 03:53 Creatinine 1.5 mg/dL (0.7-1.2) H 04/12/18 03:53 Est GFR ( Amer) 40 04/12/18 03:53 Est GFR (Non-Af Amer) 33 04/12/18 03:53 POC Glucose (mg/dL) 72 mg/dL (65-110) 04/12/18 11:08 Random Glucose 91 mg/dL (65-105) 04/12/18 03:53 Hemoglobin A1c 5.2 % (4.2-6.5) 04/07/18 08:58 Uric Acid 5.8 mg/dL (2.2-7.5) 04/07/18 08:58 Calcium 8.7 mg/dl (8.6-10.4) 04/12/18 03:53 Phosphorus 3.3 mg/dL (2.5-4.5) 04/12/18 03:53 Magnesium 2.3 mg/dL (1.6-2.3) 04/12/18 03:53 Iron 194 ug/dL (37-170) H 04/05/18 22:25 TIBC 262 ug/dL (250-450) 04/05/18 22:25 % Saturation 74 (20-55) H 04/05/18 22:25 Ferritin 528.0 ng/mL 04/06/18 07:51 Total Bilirubin 2.1 mg/dL (0.2-1.3) H 04/12/18 03:53 AST 181 U/L (14-36) H 04/12/18 03:53 ALT 144 U/L (9-52) H 04/12/18 03:53 Alkaline Phosphatase 427 U/L (38-126) H 04/12/18 03:53 Ammonia 78 umol/L (9-33) H 04/09/18 07:52 Total Creatine Kinase 56 U/L (30-135) 04/06/18 07:51 CK-MB (Mass) < 0.22 ng/mL (0.0-3.38) 04/06/18 07:51 Troponin I < 0.0120 ng/mL (0.00-0.120) 04/06/18 07:51 NT-Pro-B Natriuret Pep 154 pg/mL (0-900) 04/05/18 18:45 Total Protein 6.5 g/dL (6.3-8.3) 04/12/18 03:53 Albumin 3.3 g/dL (3.5-5.0) L 04/12/18 03:53 Globulin 3.2 gm/dL (2.2-3.9) 04/12/18 03:53 Albumin/Globulin Ratio 1.0 (1.0-2.1) 04/12/18 03:53 Triglycerides 38 mg/dL (0-149) 04/07/18 08:58 Cholesterol 114 mg/dL (0-199) 04/07/18 08:58 LDL Cholesterol Direct 30 mg/dL (0-129) 04/07/18 08:58 HDL Cholesterol 47 mg/dL (30-70) 04/07/18 08:58 Alpha Fetoprotein 2.0 ng/mL (0.0-7.5) 04/09/18 07:52 Carcinoembryonic Ag 178.0 ng/mL (0-3.0) H 04/09/18 07:52 CA 27-29 823 U/mL (<38) H 04/09/18 07:52 Vitamin B12 > 1000 pg/mL (239-931) H 04/09/18 07:52 25-OH Vitamin D Total 57.0 NG/ML (30.0-100.0) 04/07/18 08:58 Folate > 20.0 ng/mL 04/06/18 07:51 Procalcitonin 0.43 NG/ML (0.19-0.49) 04/08/18 07:12 Free T4 1.09 ng/dL (0.78-2.19) 04/07/18 08:58 TSH 3rd Generation 0.26 mIU/L (0.46-4.68) L 04/07/18 08:58 Calcium (PTH Intact) 9.0 mg/dL (8.6-10.4) 04/07/18 08:58 PTH w/Ion &Tot Calcium 232 pg/mL (14-64) H 04/07/18 08:58 Urine Color Yellow (YELLOW) 04/05/18 18:45 Urine Clarity Clear (Clear) 04/05/18 18:45 Urine pH 5.0 (5.0-8.0) 04/05/18 18:45 Ur Specific [place] 1.010 (1.003-1.030) 04/05/18 18:45 Urine Protein Negative mg/dL (NEGATIVE) 04/05/18 18:45 Urine Glucose (UA) Normal mg/dL (Normal) 04/05/18 18:45 Urine Ketones Negative mg/dL (NEGATIVE) 04/05/18 18:45 Urine Blood Negative (NEGATIVE) 04/05/18 18:45 Urine Nitrate Negative (NEGATIVE) 04/05/18 18:45 Urine Bilirubin Negative (NEGATIVE) 04/05/18 18:45 Urine Urobilinogen Normal mg/dL (0.2-1.0) 04/05/18 18:45 Ur Leukocyte Esterase Neg Trudy/uL (Negative) 04/05/18 18:45 Urine WBC (Auto) < 1 /hpf (0-5) 04/05/18 18:45 Urine RBC (Auto) < 1 /hpf (0-3) 04/05/18 18:45 Ur Squamous Epith Cells < 1 /hpf (0-5) 04/05/18 18:45 Urine Bacteria Rare (<OCC) 04/05/18 18:45 Ur Random Creatinine 61.9 mg/dL 04/07/18 16:36 U Random Total Protein 827 mg/g creat (21-161) H 04/07/18 03:05 Ur Random Sodium 17 mmol/L 04/07/18 16:36 Urine Creatinine 66 mg/dL (20-320) 04/07/18 16:36 Urine Microalbumin 9.4 mg/dL 04/07/18 16:36 Microalb/Creat Ratio 143 (<30) H 04/07/18 16:36 Stool Occult Blood Positive (NEGATIVE) H 04/05/18 19:54 Complement C3 78.0 mg/dL (88.0-165.0) L 04/07/18 08:58 Complement C4 30.2 mg/dL (14.0-44.0) 04/07/18 08:58 Hepatitis A IgM Ab Negative (NEGATIVE) 04/06/18 19:16 Hep Bs Antigen Negative (NEGATIVE) 04/06/18 19:16 Hep B Core IgM Ab Negative (NEGATIVE) 04/06/18 19:16 Hepatitis C Antibody Negative (NEGATIVE) 04/06/18 19:16 HIV 1&2 Antibody Screen Negative (NEGATIVE) 04/06/18 19:16 Blood Type O POSITIVE 04/09/18 15:17 Antibody Screen Negative 04/09/18 15:17 - Hospital Course Hospital Course: On admission: Patient is a 83 year old female with past medical history of anemia, atrial fibrillation, CHF, COPD HTN, hypothyroidism, breast cancer s/p mastectomy now on chemo presenting with chief complaint of weakness and swelling of the face which began about 3 days prior. History was obtained with help of daughter who was at beside. Patient has history of anemia and has received several transfusions in the past. Patient also admits to epigastric discomfort that is accompanied by shortness of breath. Patient denies any changes in diet or medications. Denies trauma, falls, headache, dizziness, chest pain, changes in bowel movements, dysuria. During hospital stay: Patient was evaluated for weakness. FOBT was positive. 2 units PRBCs given on admission. GI consulted. Hgb remained stable throughout admission. Patient was also evaluated for abdominal pain. Hepatitis panel and HIV were negative. Chest CT showed metastatic disease to the skeleton. On the lateral view, there is a suggestion of a prominent compression fracture/ compression deformity of a lumbar vertebral body, indeterminate chronicity, which is incompletely visualized on this study. Correlation with lumbar spine MRI is recommended for further evaluation if clinically indicated. In addition, there is mild loss of height of the superior endplate of a mid to lower thoracic vertebral body. Cirrhotic liver with portal hypertension. Cholelithiasis without evidence of cholecystitis. Bulky adenopathy noted within the upper abdomen. indeterminate nodule right midlung. Abdominal ultrasound shows increased echogenicity of the hepatic parenchymal cortex suggestive for hepatic parenxhymal disease versus fatty infiltration. Nodular/cirrhotic continue of liver. Cholelithiasis. Gallbladder wall appears thickened up to 4mm. Gallbladder wall edema. Negative Sonographic Nunez's sign. Common bile duct measures 6mm. Increased echogenicity of the bilateral renal parenchymal cortices suggestive for medical renal disrase. Atrophic kidneys. Bilateral renal cysts. urinary bladder is underdistended. Ascites throughout the abdomen. Abd/pelvis CT shows nodular hepatic contour. Hypertrophy of caudate lobe. Underlying lesions cannot be excluded. Cholelithiasis. Diffuse bilateral renal cortical thinning consistent with chronic renal insufficiency. Bilateral low- density renal lesions likely cysts. Upper abdominal bulky adenopathy, celiac, and portal caval regions. Heme/onc was consulted for potential metastatic disease to skeleton. Per heme/onc hold tamoxifen. Patient will need aromatase inhibitor with bisphosphonates when stabilized. Patient also presented with acute kidney injury. Nephrology was consulted. NS was started at 60 ccs/hr. Renal ultrasound shows limited visualization of the aorta/IVC. increased echogencity of the bilateral renal parenchymal cortices suggestive for medical renal disease. Atrophic kidneys. Bilateral renal cysts. Urinary bladder is underdistended limiting evaluation. Ascites throughout the abdomen. Patient also had pancytopenia. Patient has declined placement of portacath. Please follow up with your primary medical doctor within 7-[address] Robert will contact you for follow up appointment. If you are not contacted by Dr. Robert by Sunday, please contact her at [phone]. Please also followup with Dr. Saravia within 7-10 days. Please contact his clinic at [phone]. Please return to ED if symptoms return or worsen. - Date & Time of H&P Date of H&P: 04/05/18 Time of H&P: 19:58 Discharge Exam - Additional Findings Additional findings: - Constitutional Appears: Non-toxic, No Acute Distress - Head Exam Head Exam: ATRAUMATIC, NORMOCEPHALIC - Eye Exam Eye Exam: Normal appearance Additional comments: Left orbital prosthesis - ENT Exam ENT Exam: Mucous Membranes Dry, Normal External Ear Exam - Respiratory Exam Respiratory Exam: Clear to Auscultation Bilateral, NORMAL BREATHING PATTERN - Cardiovascular Exam Cardiovascular Exam: REGULAR RHYTHM, +S1, +S2 - GI/Abdominal Exam GI & Abdominal Exam: Normal Bowel Sounds, Soft - Extremities Exam Extremities exam: Normal Inspection - Neurological Exam Neurological exam: Alert, Oriented x3 - Skin Skin Exam: Dry, Intact, Normal Color Discharge Plan - Follow Up Plan Condition: GOOD Disposition: HOME/ ROUTINE Instructions: Normocytic Normochromic Anemia (DC) Additional Instructions: Patient has declined placement of portacath. Please take your home medications as prescribed. Please follow up with your primary medical doctor within 7-[address] Robert will contact you for follow up appointment. If you are not contacted by Dr. Robert by Sunday, please contact her at [phone]. Please also followup with Dr. Saravia within 7-10 days. Please contact his clinic at [phone]. Please return to ED if symptoms return or worsen. Referrals: Rc Saravia MD [Staff Provider] - Mitra Robert MD [Staff Provider] - <Carlo Chu - Last Filed: 04/12/18 20:33> Provider - Provider Date of Admission: 04/05/18 19:52 Attending physician: Iván Hsu MD Time Spent in preparation of Discharge (in minutes): 40 Hospital Course - Lab Results Lab Results: Micro Results 04/05/18 18:59 Blood Blood Culture - Final NO GROWTH AFTER 5 DAYS 04/05/18 18:59 Blood Gram Stain - Final TEST NOT PERFORMED 04/05/18 20:17 Blood Blood Culture - Final NO GROWTH AFTER 5 DAYS 04/05/18 20:17 Blood Gram Stain - Final TEST NOT PERFORMED Most Recent Lab Values WBC 6.0 K/uL (4.8-10.8) 04/12/18 11:27 RBC 3.23 Mil/uL (3.80-5.20) L 04/12/18 11:27 Hgb 10.4 g/dL (11.0-16.0) L 04/12/18 11:27 Hct 30.3 % (34.0-47.0) L 04/12/18 11:27 MCV 93.9 fL (81.0-99.0) 04/12/18 11:27 MCH 32.2 pg (27.0-31.0) H 04/12/18 11:27 MCHC 34.3 g/dL (33.0-37.0) 04/12/18 11:27 RDW 18.2 % (11.5-14.5) H 04/12/18 11:27 Plt Count 99 K/uL (130-400) L 04/12/18 11:27 MPV 7.7 fL (7.2-11.7) 04/12/18 11:27 Neut % (Auto) 72.5 % (50.0-75.0) 04/12/18 11:27 Lymph % (Auto) 18.7 % (20.0-40.0) L 04/12/18 11:27 Wake % (Auto) 7.9 % (0.0-10.0) 04/12/18 11:27 Eos % (Auto) 0.7 % (0.0-4.0) 04/12/18 11:27 Baso % (Auto) 0.2 % (0.0-2.0) 04/12/18 11:27 Neut # (Auto) 4.4 K/uL (1.8-7.0) 04/12/18 11:27 Lymph # (Auto) 1.1 K/uL (1.0-4.3) 04/12/18 11:27 Wake # (Auto) 0.5 K/uL (0.0-0.8) 04/12/18 11:27 Eos # (Auto) 0.0 K/uL (0.0-0.7) 04/12/18 11:27 Baso # (Auto) 0.0 K/uL (0.0-0.2) 04/12/18 11:27 Differential Comment 04/07/18 13:51 Retic Count 3.0 % (0.5-1.5) H D 04/06/18 07:51 PT 15.2 SECONDS (9.7-12.2) H 04/12/18 11:27 INR 1.4 04/12/18 11:27 APTT 26 SECONDS (21-34) 04/12/18 11:27 Sodium 143 mmol/L (132-148) 04/12/18 03:53 Potassium 4.0 mmol/L (3.6-5.2) 04/12/18 03:53 Chloride 105 mmol/L (98-107) 04/12/18 03:53 Carbon Dioxide 28 mmol/L (22-30) 04/12/18 03:53 Anion Gap 14 (10-20) 04/12/18 03:53 BUN 50 mg/dL (7-17) H 04/12/18 03:53 Creatinine 1.5 mg/dL (0.7-1.2) H 04/12/18 03:53 Est GFR ( Amer) 40 04/12/18 03:53 Est GFR (Non-Af Amer) 33 04/12/18 03:53 POC Glucose (mg/dL) 94 mg/dL (65-110) 04/12/18 16:39 Random Glucose 91 mg/dL (65-105) 04/12/18 03:53 Hemoglobin A1c 5.2 % (4.2-6.5) 04/07/18 08:58 Uric Acid 5.8 mg/dL (2.2-7.5) 04/07/18 08:58 Calcium 8.7 mg/dl (8.6-10.4) 04/12/18 03:53 Phosphorus 3.3 mg/dL (2.5-4.5) 04/12/18 03:53 Magnesium 2.3 mg/dL (1.6-2.3) 04/12/18 03:53 Iron 194 ug/dL (37-170) H 04/05/18 22:25 TIBC 262 ug/dL (250-450) 04/05/18 22:25 % Saturation 74 (20-55) H 04/05/18 22:25 Ferritin 528.0 ng/mL 04/06/18 07:51 Total Bilirubin 2.1 mg/dL (0.2-1.3) H 04/12/18 03:53 AST 181 U/L (14-36) H 04/12/18 03:53 ALT 144 U/L (9-52) H 04/12/18 03:53 Alkaline Phosphatase 427 U/L (38-126) H 04/12/18 03:53 Ammonia 78 umol/L (9-33) H 04/09/18 07:52 Total Creatine Kinase 56 U/L (30-135) 04/06/18 07:51 CK-MB (Mass) < 0.22 ng/mL (0.0-3.38) 04/06/18 07:51 Troponin I < 0.0120 ng/mL (0.00-0.120) 04/06/18 07:51 NT-Pro-B Natriuret Pep 154 pg/mL (0-900) 04/05/18 18:45 Total Protein 6.5 g/dL (6.3-8.3) 04/12/18 03:53 Albumin 3.3 g/dL (3.5-5.0) L 04/12/18 03:53 Globulin 3.2 gm/dL (2.2-3.9) 04/12/18 03:53 Albumin/Globulin Ratio 1.0 (1.0-2.1) 04/12/18 03:53 Triglycerides 38 mg/dL (0-149) 04/07/18 08:58 Cholesterol 114 mg/dL (0-199) 04/07/18 08:58 LDL Cholesterol Direct 30 mg/dL (0-129) 04/07/18 08:58 HDL Cholesterol 47 mg/dL (30-70) 04/07/18 08:58 Alpha Fetoprotein 2.0 ng/mL (0.0-7.5) 04/09/18 07:52 Carcinoembryonic Ag 178.0 ng/mL (0-3.0) H 04/09/18 07:52 CA 27-29 823 U/mL (<38) H 04/09/18 07:52 Vitamin B12 > 1000 pg/mL (239-931) H 04/09/18 07:52 25-OH Vitamin D Total 57.0 NG/ML (30.0-100.0) 04/07/18 08:58 Folate > 20.0 ng/mL 04/06/18 07:51 Procalcitonin 0.43 NG/ML (0.19-0.49) 04/08/18 07:12 Free T4 1.09 ng/dL (0.78-2.19) 04/07/18 08:58 TSH 3rd Generation 0.26 mIU/L (0.46-4.68) L 04/07/18 08:58 Calcium (PTH Intact) 9.0 mg/dL (8.6-10.4) 04/07/18 08:58 PTH w/Ion &Tot Calcium 232 pg/mL (14-64) H 04/07/18 08:58 Urine Color Yellow (YELLOW) 04/05/18 18:45 Urine Clarity Clear (Clear) 04/05/18 18:45 Urine pH 5.0 (5.0-8.0) 18 18:45 Ur Specific [place] 1.010 (1.003-1.030) 04/05/18 18:45 Urine Protein Negative mg/dL (NEGATIVE) 04/05/18 18:45 Urine Glucose (UA) Normal mg/dL (Normal) 04/05/18 18:45 Urine Ketones Negative mg/dL (NEGATIVE) 04/05/18 18:45 Urine Blood Negative (NEGATIVE) 04/05/18 18:45 Urine Nitrate Negative (NEGATIVE) 04/05/18 18:45 Urine Bilirubin Negative (NEGATIVE) 04/05/18 18:45 Urine Urobilinogen Normal mg/dL (0.2-1.0) 18 18:45 Ur Leukocyte Esterase Neg Trudy/uL (Negative) 04/05/18 18:45 Urine WBC (Auto) < 1 /hpf (0-5) 04/05/18 18:45 Urine RBC (Auto) < 1 /hpf (0-3) 18 18:45 Ur Squamous Epith Cells < 1 /hpf (0-5) 04/05/18 18:45 Urine Bacteria Rare (<OCC) 04/05/18 18:45 Ur Random Creatinine 61.9 mg/dL 04/07/18 16:36 U Random Total Protein 827 mg/g creat (21-161) H 04/07/18 03:05 Ur Random Sodium 17 mmol/L 04/07/18 16:36 Urine Creatinine 66 mg/dL (20-320) 04/07/18 16:36 Urine Microalbumin 9.4 mg/dL 04/07/18 16:36 Microalb/Creat Ratio 143 (<30) H 04/07/18 16:36 Stool Occult Blood Positive (NEGATIVE) H 04/05/18 19:54 Complement C3 78.0 mg/dL (88.0-165.0) L 04/07/18 08:58 Complement C4 30.2 mg/dL (14.0-44.0) 04/07/18 08:58 Hepatitis A IgM Ab Negative (NEGATIVE) 04/06/18 19:16 Hep Bs Antigen Negative (NEGATIVE) 04/06/18 19:16 Hep B Core IgM Ab Negative (NEGATIVE) 04/06/18 19:16 Hepatitis C Antibody Negative (NEGATIVE) 04/06/18 19:16 HIV 1&2 Antibody Screen Negative (NEGATIVE) 04/06/18 19:16 Blood Type O POSITIVE 04/09/18 15:17 Antibody Screen Negative 04/09/18 15:17 Attending/Attestation - Attestation I have personally seen and examined this patient.: Yes I have fully participated in the care of the patient.: Yes I have reviewed all pertinent clinical information, including history, physical exam and plan: Yes Notes (Text): 04/12/18 20:27 Patient was seen and examined shortly after resident Discharge instructions were gone over in detail with the resident. Unfortunately lymph node biopsy could not be performed by IR on 04/11/18 as INR was not low enough as per their guidelines. At the time of patient being brought down for the biopsy on 04/11/18 she pulled out her IV access which then could not be reinserted despite multiple attempts. PICC Line could also not be placed. Therefore additional FFP could not be given. Heme/Onc was notified and Dr. Robert requested that we arrange for PortaCath placement so that Chemotherapy could be started on patient next week. However, as per my conversation with Daughter Ghazala, this was declined by family. Therefore, plan is for patient to follow up with Dr. Robert as an outpatient for further management. Ghazala confirmed that patient had all of her home medications. She is also looking for another PMD for patient and Dr. Serrato was recommended by me and Ghazala already has his contact information. Carlo Chu D.O.
[2018-04-12 16:59] VITALS: BP 138/83; PULSE 75; RESP 24; TEMP 97.5; O2SAT 98
== END 2018-04-12 23:31 | disposition home or self-care (01) | DRG 812 ==
LOC: C.ER 17:59 → C.9E 19:52 → C.3T 20:41
PROVIDERS: ADMIT Family Medicine; ATTEND Family Medicine
PROC: 30233R1 Transfusion of Nonautologous Platelets into Peripheral Vein, Percutaneous Approach (ICD-10-PCS; 2018-04-09)
PROC: 30233N1 Transfusion of Nonautologous Red Blood Cells into Peripheral Vein, Percutaneous Approach (ICD-10-PCS; 2018-04-09)
PROC: 05HY33Z Insertion of Infusion Device into Upper Vein, Percutaneous Approach (ICD-10-PCS; principal; 2018-04-12)
DX: D62 Acute posthemorrhagic anemia (principal); C78.7 Secondary malignant neoplasm of liver and intrahepatic bile duct; C79.51 Secondary malignant neoplasm of bone; I13.0 Hypertensive heart and chronic kidney disease with heart failure and stage 1 through stage 4 chronic kidney disease, or unspecified chronic kidney disease; I50.22 Chronic systolic (congestive) heart failure; K76.6 Portal hypertension; K92.2 Gastrointestinal hemorrhage, unspecified; M84.58XA Pathological fracture in neoplastic disease, other specified site, initial encounter for fracture; N17.9 Acute kidney failure, unspecified; R18.8 Other ascites; D61.818 Other pancytopenia; D63.8 Anemia in other chronic diseases classified elsewhere; E03.9 Hypothyroidism, unspecified; F17.210 Nicotine dependence, cigarettes, uncomplicated; H54.8 Legal blindness, as defined in USA; I48.91 Unspecified atrial fibrillation; J44.9 Chronic obstructive pulmonary disease, unspecified; K74.60 Unspecified cirrhosis of liver; K80.20 Calculus of gallbladder without cholecystitis without obstruction; Z85.3 Personal history of malignant neoplasm of breast; N18.9 Chronic kidney disease, unspecified; R79.1 Abnormal coagulation profile; Z79.810 Long term (current) use of selective estrogen receptor modulators (SERMs); Z79.82 Long term (current) use of aspirin; Z90.12 Acquired absence of left breast and nipple; Z92.21 Personal history of antineoplastic chemotherapy; Z95.0 Presence of cardiac pacemaker

== ENCOUNTER 2018-04-16 15:34 | Observation (INO) | payer MEDICARE, OTHER ==
[2018-04-16 15:34] VITALS: BMI 40.4
--- NOTE | 2018-04-16 16:34 | C.PDOC ---
History Of Present Illness 83 y/o female with PMHx of metastatic breast cancer presents to the ED complaining of shortness of breath that began today. Of note, patient was discharged from the hospital 2 days ago after admission and treatment for anemia. Patient states that last night she had chest pain, described as left- sided chest pressure. It is now resolved. She otherwise has no URI complaints, cough, fever, abdominal pain. Family reports that they did not like how her breathing was overnight and do not feel comfortable taking her home. They report that she has missed 1 dose of lasix. They report that they have hospice appt tomorrow. Time Seen by Provider: 04/16/18 15:36 Chief Complaint (Nursing): Shortness Of Breath History Per: Patient History/Exam Limitations: no limitations Onset/Duration Of Symptoms: Hrs Current Symptoms Are (Timing): Still Present Associated Symptoms: Chest Pain Reports Recently: Hospitalized Additional History Per: Prior Records Past Medical History Reviewed: Historical Data, Nursing Documentation, Vital Signs Vital Signs: Last Vital Signs Temp 97.5 F L 04/16/18 15:39 Pulse 62 04/16/18 15:39 Resp 22 04/16/18 15:40 BP 128/43 L 04/16/18 15:39 Pulse Ox 100 04/16/18 17:45 - Medical History PMH: Anemia, Anxiety, Arthritis, Atrial Fibrillation, Cardia Arrhythmia (ATRIAL FIB), CHF, COPD, Fractures (left hip 10 years ago), Gall Bladder Disease ( GALLSTONES), HTN, Hypothyroidism, Malignancy (Breast) Denies: Chronic Kidney Disease Surgical History: Endoscopy, Pacemaker - [facility] Procedures ASSISTANCE WITH RESPIRATORY VENTILATION, 24-96 HRS, CPAP (08/02/16) DRAINAGE OF CHEST SUBCU/FASCIA, OPEN APPROACH (09/12/16) EXCISION OF LEFT AXILLARY LYMPHATIC, OPEN APPROACH, DIAGN (08/25/16) EXCISION OF LEFT BREAST, OPEN APPROACH (08/25/16) EXTRACTION OF CHEST SKIN, EXTERNAL APPROACH (09/12/16) FLUOROSCOPY OF SUP VENA CAVA USING L OSM CONTRAST, GUIDANCE (09/19/16) INSERTION OF INFUSION DEV INTO SUP VENA CAVA, PERC APPROACH (09/19/16) INSERTION OF INFUSION DEVICE INTO UPPER VEIN, PERC APPROACH (04/05/18) REPLAC ANY TYPE PACE DEV W/ DUAL CHAMBER DEVICE (11/18/14) TRANSFUSE NONAUT PLATELETS IN PERIPH VEIN, [facility] (04/05/18) TRANSFUSE NONAUT RED BLOOD CELLS IN PERIPH VEIN, [facility] (04/05/18) Family History: States: Unknown Family Hx - Social History Hx Tobacco Use: No Hx Alcohol Use: No Hx Substance Use: No - Immunization History Hx Tetanus Toxoid Vaccination: No Hx Influenza Vaccination: No Hx Pneumococcal Vaccination: No Review Of Systems Except As Marked, All Systems Reviewed And Found Negative. Constitutional: Negative for: Fever, Chills, Sweats ENT: Negative for: Nose Discharge, Nose Congestion Cardiovascular: Positive for: Chest Pain (now resolved) Respiratory: Positive for: Shortness of Breath. Negative for: Cough Gastrointestinal: Negative for: Vomiting, Abdominal Pain, Diarrhea Neurological: Negative for: Weakness, Numbness, Incoordination Physical Exam - Physical Exam Appears: Non-toxic, No Acute Distress Skin: Normal Color, Warm, Dry Head: Atraumatic, Normacephalic Eye(s): right: Normal Inspection, PERRL, EOMI, left: Other (Prosthesis to left eye) Oral Mucosa: Moist Neck: Normal ROM, Supple Chest: No Tenderness, Other (Pacemaker to the left chest wall) Cardiovascular: Rhythm Regular, No Murmur Respiratory: Decreased Breath Sounds (diminished bilaterally, left > right), No Rales, No Rhonchi, No Wheezing Gastrointestinal/Abdominal: Soft, No Tenderness, No Distention Extremity: Normal ROM, No Calf Tenderness, No Swelling, Other (Moving all extremities spontaneously) Neurological/Psych: Oriented x3, Normal Speech ED Course And Treatment - Laboratory Results Result Diagrams: 04/16/18 16:31 04/16/18 16:31 O2 Sat by Pulse Oximetry: 100 (RA) Pulse Ox Interpretation: Normal - Other Rad CXR X-Ray: Viewed By Me, Read By Radiologist Interpretation: FINDINGS: LUNGS: No active pulmonary disease. PLEURA: Mild blunting of left costophrenic angle may reflect small pleural effusion. No evidence of right pleural effusion. No pneumothorax. CARDIOVASCULAR: Permanent pacemaker. Normal heart size. OSSEOUS STRUCTURES: No significant abnormalities. VISUALIZED UPPER ABDOMEN: Normal. OTHER FINDINGS: None. IMPRESSION: No infiltrate. Possible small left pleural effusion. - Physician Consult Information Time Consulting Physician Contacted: 17:38 Physician Contacted: Thomas Ontiveros Outcome Of Conversation: Patient accepted for admission Medical Decision Making Medical Decision Making: Initial Plan: --CMP --CK-MB --Pro-BNP --Troponin I --CPK --CBC --PTT/PT --Chest X-Ray --Aspirin 81 mg PO EKG shows paced rhythm at 62bpm Cxray shows L sided pleural effusion Family reports they are not comfortable taking patient home. Patient and family need likely SW and hospice coordination for what is likely worsening of mestastatic cancer as opposed to primary cardiac process. Spoke to hospitalist who will monitor overnight on tele. Disposition - Disposition Disposition: HOSPITALIZED Disposition Time: 17:39 Condition: FAIR - Clinical Impression Clinical Impression: Chest pain, Pleural effusion, Anemia - Scribe Statement The provider has reviewed the documentation as recorded by the Scribe (Sasha Deal) Provider Attestation: All medical record entries made by the Scribe were at my direction and personally dictated by me. I have reviewed the chart and agree that the record accurately reflects my personal performance of the history, physical exam, medical decision making, and the department course for this patient. I have also personally directed, reviewed, and agree with the discharge instructions and disposition.
--- NOTE | 2018-04-16 16:42 | RAD ---
Date of service: 04/16/2018 HISTORY: chest pain COMPARISON: 04/05/2018 FINDINGS: LUNGS: No active pulmonary disease. PLEURA: Mild blunting of left costophrenic angle may reflect small pleural effusion. No evidence of right pleural effusion. No pneumothorax. CARDIOVASCULAR: Permanent pacemaker. Normal heart size. OSSEOUS STRUCTURES: No significant abnormalities. VISUALIZED UPPER ABDOMEN: Normal. OTHER FINDINGS: None. IMPRESSION: No infiltrate. Possible small left pleural effusion.
[2018-04-16 16:44] LABS: INR 1.4; PROTHROMBIN TIME 15.2 SECONDS (9.7-12.2)
[2018-04-16 16:45] LABS: BASO % 0.6 % (0.0-2.0); EOS # 0.2 K/uL (0.0-0.7); EOS % 2.7 % (0.0-4.0); HEMOGLOBIN 9.6 g/dL (11.0-16.0); LYMPH # 1.2 K/uL (1.0-4.3); LYMPH % 17.9 % (20.0-40.0); MEAN CELL VOLUME 95.4 fL (81.0-99.0); MEAN CORPUSCULAR HEMOGLOBIN 32.4 pg (27.0-31.0); MEAN PLATELET VOLUME 7.9 fL (7.2-11.7); MONO # 0.5 K/uL (0.0-0.8); NEUT # 4.8 K/uL (1.8-7.0); NEUT % 70.8 % (50.0-75.0); NRBC % 0.4 % (0.0-2.0); RBC 2.97 Mil/uL (3.80-5.20); RED CELL DISTRIBUTION WIDTH 19.2 % (11.5-14.5); WHITE BLOOD COUNT 6.7 K/uL (4.8-10.8)
[2018-04-16 16:55] LABS: ALT/SGPT 163 U/L (9-52); AST/SGOT 249 U/L (14-36); BLOOD UREA NITROGEN 30 mg/dL (7-17); CALCIUM 9.9 mg/dl (8.6-10.4); GFR NON-AFRICAN AMERICAN 43
[2018-04-16 17:07] LABS: B-TYPE NATRIURETIC PEPTIDE 540 pg/mL (0-900); CK-MB 0.34 ng/mL (0.0-3.38)
--- NOTE | 2018-04-16 21:27 | CP.PCM.HP ---
<Donya Pritchett - Last Filed: 04/16/18 21:18> History of Present Illness - History of Present Illness History of Present Illness: Ms. Frances is a 83yoF PMH metastatic breast CA, CHF, afib, anxiety, and hypothyroidism comes to [facility] for shortness of breath x1 day. She did not take her diuretic and began feeling short of breath. She was recently discharged from [facility] on 04/12/18 for MAHAD. She was not given any new medications, but was instructed to continue her home medications. Denies trauma, headache, falls, dizziness, chest pain, changes in bowel movements, dysuria. Past medical history : anemia, anxiety, arthritis, atrial fibrillation, CHF, COPD, cholelithiasis, HTN, hypothyroidism, malignancy (breast). Family, including POA daughter Oksana , has agreed to palliative and hospice care. Family has been working with [facility] ([phone]), specifically [place] ([phone]). Patient is now DNR/DNI. Past surgical history: mastectomy (2016), pacemaker (2010), left hip surgery Social history: 5 cans of beer per day past 20 years. 2 cigarettes per week past 20 years. Denies recreational drug use. Allergies: NKDA PMD: Dr. Serrato Pharmacy: [facility] POA: daughter - Oksana Reid Present on Admission - Present on Admission Any Indicators Present on Admission: No Review of Systems - Constitutional Constitutional: Fatigue, Lethargy. absent: Anorexia, Chills, Fever, Headache, Increased Appetite, Night Sweats, Weight Loss - EENT Eyes: absent: Blind Spots, Diplopia, Irritation, Photophobia, Requires Corrective Lenses, Sees Flashes Ears: absent: Decreased Hearing, Ear Discharge Nose/Mouth/Throat: absent: Dysphagia, Odynophagia - Breasts Breasts: absent: Change in Shape, Mass - Cardiovascular Cardiovascular: Dyspnea, Dyspnea on Exertion, Irregular Heart Rhythm. absent: Chest Pain, Chest Pain at Rest, Lightheadedness, Palpitations, Paroxysmal Nocturnal Dyspnea - Respiratory Respiratory: Dyspnea. absent: Cough, Pain on Inspiration, Chest Congestion - Gastrointestinal Gastrointestinal: absent: Diarrhea, Dysphagia, Nausea, Vomiting - Genitourinary Genitourinary: absent: Hematuria, Urinary Incontinence, Urinary Frequency - Musculoskeletal Musculoskeletal: Myalgias, Stiffness. absent: Joint Swelling, Muscle Cramps - Integumentary Integumentary: Rash. absent: Change in Pigmentation, Skin Ulcer - Neurological Neurological: absent: Disequilibrium, Dizziness, Headaches - Psychiatric Psychiatric: absent: Auditory Hallucinations, Irritability, Panic Attacks - Endocrine Endocrine: absent: Cold Intolorance, Heat Intolorance Past Patient History - Infectious Disease Hx of Infectious Diseases: None - Tetanus Immunizations Tetanus Immunization: Unknown - Past Medical History & Family History Past Medical History?: Yes - Past Social History Smoking Status: Former Smoker Alcohol: None Drugs: Denies - CARDIAC Hx Atrial Fibrillation: Yes Hx Cardia Arrhythmia: Yes (ATRIAL FIB) Hx Congestive Heart Failure: Yes Hx Hypertension: Yes Hx Pacemaker: Yes - PULMONARY Hx Chronic Obstructive Pulmonary Disease (COPD): Yes - NEUROLOGICAL Hx Neurological Disorder: No - HEENT Hx HEENT Problems: Yes Hx Blind: Yes (ARTIFICIAL LEFT EYE, right eye blind) Hx Glaucoma: Yes (right eye) - RENAL Hx Chronic Kidney Disease: No - ENDOCRINE/METABOLIC Hx Hypothyroidism: Yes - HEMATOLOGICAL/ONCOLOGICAL Hx Anemia: Yes - INTEGUMENTARY Hx Dermatological Problems: No - MUSCULOSKELETAL/RHEUMATOLOGICAL Hx Arthritis: Yes Hx Fractures: Yes (left hip 10 years ago) - GASTROINTESTINAL Hx Gall Bladder Disease: Yes (GALLSTONES) - GENITOURINARY/GYNECOLOGICAL Hx Genitourinary Disorders: Yes (URINARY FREQUENCY) - PSYCHIATRIC Hx Anxiety: Yes Hx Substance Use: No - SURGICAL HISTORY Hx Surgeries: Yes Hx Breast Biopsy: Yes Hx Eye Surgery: Yes (left eye) Hx Hysterectomy: Yes (4o years ago) Hx Mastectomy: Yes (left 08/25/16) Hx Orthopedic Surgery: Yes (left hip 10 yrs ago) - ANESTHESIA Hx Anesthesia: Yes Hx Anesthesia Reactions: No Hx Malignant Hyperthermia: No Meds Allergies/Adverse Reactions: Allergies Allergy/AdvReac Type Severity Reaction Status Date / Time No Known Allergies Allergy Verified 04/05/18 18:07 Physical Exam - Constitutional Appears: Non-toxic, No Acute Distress, Confused - Head Exam Head Exam: ATRAUMATIC, NORMOCEPHALIC - Eye Exam Eye Exam: EOMI, Normal appearance - ENT Exam ENT Exam: Mucous Membranes Moist, Normal Exam - Neck Exam Neck exam: Negative for: Lymphadenopathy - Respiratory Exam Respiratory Exam: NORMAL BREATHING PATTERN Additional comments: diffuse crackles, greatest LLL - Cardiovascular Exam Cardiovascular Exam: REGULAR RHYTHM, +S1, +S2. absent: Systolic Murmur - GI/Abdominal Exam GI & Abdominal Exam: Normal Bowel Sounds, Soft. absent: Tenderness Additional comments: rib pain on L side on palpation - Extremities Exam Additional comments: multiple bruises, likely from peripheral IV insertions and minor bumps - Back Exam Back exam: NORMAL INSPECTION - Neurological Exam Neurological exam: Alert, Altered - Skin Skin Exam: Dry, Intact, Normal Color, Warm Results - Vital Signs Recent Vital Signs: Last Vital Signs Temp 97.2 F L 04/16/18 19:24 Pulse 60 04/16/18 19:24 Resp 20 04/16/18 19:24 BP 123/64 04/16/18 19:24 Pulse Ox 99 04/16/18 19:24 - Labs Result Diagrams: 04/16/18 16:31 04/16/18 16:31 Labs: Laboratory Results - last 24 hr 04/16/18 04/16/18 04/16/18 15:37 16:31 16:31 WBC 6.7 RBC 2.97 L Hgb 9.6 L Hct 28.3 L MCV 95.4 MCH 32.4 H MCHC 34.0 RDW 19.2 H Plt Count 83 L MPV 7.9 Neut % (Auto) 70.8 Lymph % (Auto) 17.9 L Bull[place] % (Auto) 8.0 Eos % (Auto) 2.7 Baso % (Auto) 0.6 Neut # (Auto) 4.8 Lymph # (Auto) 1.2 [place] # (Auto) 0.5 Eos # (Auto) 0.2 Baso # (Auto) 0.0 PT 15.2 H INR 1.4 APTT 31 Sodium Potassium Chloride Carbon Dioxide Anion Gap BUN Creatinine Est GFR ( Amer) Est GFR (Non-Af Amer) POC Glucose (mg/dL) 99 Random Glucose Calcium Total Bilirubin AST ALT Alkaline Phosphatase Total Creatine Kinase CK-MB (Mass) Troponin I NT-Pro-B Natriuret Pep Total Protein Albumin Globulin Albumin/Globulin Ratio 04/16/18 16:31 WBC RBC Hgb Hct MCV MCH MCHC RDW Plt Count MPV Neut % (Auto) Lymph % (Auto) Bullock % (Auto) Eos % (Auto) Baso % (Auto) Neut # (Auto) Lymph # (Auto) Bullock # (Auto) Eos # (Auto) Baso # (Auto) PT INR APTT Sodium 139 Potassium 4.8 Chloride 105 Carbon Dioxide 28 Anion Gap 10 BUN 30 H Creatinine 1.2 Est GFR ( Amer) 52 Est GFR (Non-Af Amer) 43 POC Glucose (mg/dL) Random Glucose 109 H Calcium 9.9 Total Bilirubin 4.1 H AST 249 H D ALT 163 H Alkaline Phosphatase 719 H D Total Creatine Kinase 39 CK-MB (Mass) 0.34 Troponin I < 0.0120 NT-Pro-B Natriuret Pep 540 Total Protein 6.1 L Albumin 3.0 L Globulin 3.1 Albumin/Globulin Ratio 1.0 Assessment & Plan - Assessment and Plan (Free Text) Assessment: 83yoF with PMH metastatic breast CA, CHF, afib with AICD, hypothyroidism admitted for CHF exacerbation 2/2 medication. Now for Hospice and DNR/DNI. Plan: 1) CHF exacerbation - CXR (04/06): no infiltrate, possible small pleural effusion - given Lasix 20mg IVP in ED - started on Lasix 20mg po daily - cont home meds - Coreg 6.25mg po bid - Losartan 25mg po daily - ASA 1mg po daily (given full strength vs. 81mg per home meds) - O2 via NC 2L prn - Pulm consulted: Dr. Serrato (also PMD) - help appreciated 2) Metastatic Breast CA - s/p mastectomy, patient refused chemotherapy via Portacath - cont home meds - Alendronate NF -> will change per pharmacy - Letrozole NF -> will change per pharmacy - decided on hospice and comfort care. has been working with [facility] ([phone]), specifically [place] ([phone]) - DNR/DNI - given Morphine 2mg IVP q4 prn for pain - Palliative Care consulted: Cammie Qureshi - help appreciated 3) Hypothyroidism - f/u TSH, free T4 [TSH (04/07) 0.26] - cont home Synthroid 50mcg po daily 4) PPx - DVT: CI due to recent GI bleed - GI: Protonix 40mg po q12 - SCDs d/w Dr. Ontiveros and Dr. Yesica Pritchett PGY-1 - Date & Time Date: 04/16/18 Time: 18:30 <Thomas Ontiveros - Last Filed: 04/18/18 15:07> Results - Vital Signs Recent Vital Signs: Last Vital Signs Temp 98 F 04/18/18 08:00 Pulse 65 04/18/18 08:00 Resp 18 04/18/18 08:00 BP 120/80 04/18/18 11:31 Pulse Ox 100 04/18/18 08:00 - Labs Result Diagrams: 04/17/18 07:06 04/17/18 07:06 Attending/Attestation - Attestation I have personally seen and examined this patient.: Yes I have fully participated in the care of the patient.: Yes I have reviewed all pertinent clinical information: Yes Notes (Text): Seen and examined in the ER Discussed with her daughter at bedside. Patient is complaining of left lower chest pain. Has left lower rib area tenderness and back pain Daughter states that she has fluid after her lasix was discontinued Patient has an appointment with her oncologist tomorrow and also planning take her to DR Stewart.Patient's daughter is thinking about palliative care. She wants her to be DNR/DNI I spoked to DR Robert her oncologist. She will talk to patient's daughter/ asked her to call her to discuss without taking the patient for the appointment Discussed with Dr Serrato about pleural effusion D/w Resident. agree with the documentation of the assessment and the plan
[2018-04-17] MEDS: Levothyroxine 50 MCG TAB PO SCH (05:54)
[2018-04-17 07:15] LABS: BASO % 0.7 % (0.0-2.0); EOS # 0.1 K/uL (0.0-0.7); EOS % 2.4 % (0.0-4.0); HEMOGLOBIN 9.5 g/dL (11.0-16.0); LYMPH # 1.2 K/uL (1.0-4.3); LYMPH % 19.9 % (20.0-40.0); MEAN CELL VOLUME 94.7 fL (81.0-99.0); MEAN CORPUSCULAR HEMOGLOBIN 32.2 pg (27.0-31.0); MEAN PLATELET VOLUME 8.2 fL (7.2-11.7); MONO # 0.4 K/uL (0.0-0.8); MONO % 7.2 % (0.0-10.0); NEUT # 4.2 K/uL (1.8-7.0); NEUT % 69.8 % (50.0-75.0); RBC 2.94 Mil/uL (3.80-5.20); RED CELL DISTRIBUTION WIDTH 19.7 % (11.5-14.5)
[2018-04-17 07:52] LABS: ALB/GLOB RATIO 0.9 (1.0-2.1); ALBUMIN 2.8 g/dL (3.5-5.0); CALCIUM 9.4 mg/dl (8.6-10.4)
[2018-04-17] MEDS ORDERED: LETROZOLE PO SCH (09:00)
[2018-04-17] MEDS: Pantoprazole 40 mg EC Tab PO SCH (09:16)
[2018-04-17] MEDS ORDERED: Home Med 1 UNIT (Alendronate Sodium [Binosto] 1 TAB) PO SCH (10:00)
--- NOTE | 2018-04-17 16:57 | CP.PCM.PN ---
<Harry Rod - Last Filed: 04/17/18 16:59> Subjective - Date & Time of Evaluation Date of Evaluation: 04/17/18 Time of Evaluation: 16:55 - Subjective Subjective: PGY-[address] Ontiveros Patient seen and examined at bedside. Patient is still having some shortness of breath, but appears much more comfortable. Patient is with her daughter at bedside and they will wait to decide about palliative care treatment. Patient still is having abdominal pain, but is tolerating food PO and sleeping well overnight. Objective - Vital Signs/Intake and Output Vital Signs (last 24 hours): Temp Pulse Resp BP Pulse Ox 97.3 F L 60 20 106/62 100 04/17/18 15:47 04/17/18 15:47 04/17/18 15:47 04/17/18 15:47 04/17/18 15:47 - Medications Medications: Current Medications Aspirin (Ecotrin) 81 mg PO DAILY [facility] Last Admin: 04/17/18 09:16 Dose: 81 mg Calcium/Vitamin D (Oyster Shell Calcium/Vitamin D 500 Mg-200 Iu) 1 tab PO DAILY [facility] Carvedilol (Coreg) 6.25 mg PO BID [facility] Last Admin: 04/17/18 09:16 Dose: 6.25 mg Home Med (Alendronate Sodium [Binosto]) 1 tab PO DAILY [facility] Home Med (Letrozole [Letrozole]) 1 tab PO PCB [facility] Levothyroxine Sodium (Synthroid) 50 mcg PO DAILY@0630 [facility] Last Admin: 04/17/18 05:54 Dose: 50 mcg Losartan Potassium (Cozaar) 25 mg PO DAILY [facility] Last Admin: 04/17/18 09:16 Dose: 25 mg Morphine Sulfate (Morphine) 2 mg IVP Q4 PRN PRN Reason: Pain, moderate (4-7) Last Admin: 04/17/18 09:15 Dose: 2 mg Pantoprazole Sodium (Protonix Ec Tab) 40 mg PO DAILY [facility] Last Admin: 04/17/18 09:16 Dose: 40 mg Temazepam (Restoril) 15 mg PO HS PRN PRN Reason: Sleep Last Admin: 04/16/18 22:14 Dose: 15 mg - Labs Labs: 04/17/18 07:06 04/17/18 07:06 PT 15.2 SECONDS (9.7-12.2) H 04/16/18 16:31 INR 1.4 04/16/18 16:31 APTT 31 SECONDS (21-34) 04/16/18 16:31 - Constitutional Appears: Other (Comfortable) - Head Exam Head Exam: ATRAUMATIC, NORMAL INSPECTION - Eye Exam Eye Exam: EOMI, Normal appearance - Respiratory Exam Respiratory Exam: Rales (+rales at bases b/l) - Cardiovascular Exam Cardiovascular Exam: REGULAR RHYTHM, +S1, +S2. absent: Diastolic murmur - GI/Abdominal Exam GI & Abdominal Exam: Tenderness, Normal Bowel Sounds - Neurological Exam Neurological Exam: Awake, CN II-XII Intact, Oriented x3 - Skin Skin Exam: Dry, Intact. absent: Abrasion Assessment and Plan - Assessment and Plan (Free Text) Assessment: 1) CHF exacerbation - CXR (04/06): no infiltrate, possible small pleural effusion - given Lasix 20mg IVP in ED - started on Lasix 20mg po daily - cont home meds - Coreg 6.25mg po bid - Losartan 25mg po daily - ASA 1mg po daily (given full strength vs. 81mg per home meds) - O2 via NC 2L prn - Pulm consulted: Dr. Serrato (also PMD) - help appreciated 2) Metastatic Breast CA - s/p mastectomy, patient refused chemotherapy via Portacath - cont home meds - Alendronate NF -> will change per pharmacy - Letrozole NF -> will change per pharmacy - decided on hospice and comfort care. has been working with [facility] specifically [place] ([phone]) - DNR/DNI - given Morphine 2mg IVP q4 prn given today for pain - Palliative Care consulted: Cammie Qureshi - help appreciated - Pulmonology consulted Dr. Serrato for symptomatic relief of pulmonary edema to optimize patient comfort 3) Hypothyroidism - TSH normalized at 2.3 today, Free T4 1.64 - cont home Synthroid 50mcg po daily 4) PPx - DVT: CI due to recent GI bleed - GI: Protonix 40mg po q12 - SCDs d/w Dr. Weston Rod PGY-1 <Thomas Ontiveros - Last Filed: 04/18/18 15:35> Objective - Vital Signs/Intake and Output Vital Signs (last 24 hours): Temp Pulse Resp BP Pulse Ox 98 F 65 18 120/80 100 04/18/18 08:00 04/18/18 08:00 04/18/18 08:00 04/18/18 11:31 04/18/18 08:00 - Medications Medications: Current Medications Aspirin (Ecotrin) 81 mg PO DAILY [facility] Last Admin: 04/18/18 11:30 Dose: 81 mg Calcium/Vitamin D (Oyster Shell Calcium/Vitamin D 500 Mg-200 Iu) 1 tab PO DAILY [facility] Last Admin: 04/18/18 11:30 Dose: 1 tab Carvedilol (Coreg) 6.25 mg PO BID [facility] Last Admin: 04/18/18 11:30 Dose: 6.25 mg Furosemide (Lasix) 20 mg PO DAILY [facility] Last Admin: 04/18/18 11:31 Dose: 20 mg Home Med (Alendronate Sodium [Binosto]) 1 tab PO DAILY [facility] Home Med (Letrozole [Letrozole]) 1 tab PO PCB [facility] Levothyroxine Sodium (Synthroid) 50 mcg PO DAILY@0630 [facility] Last Admin: 04/18/18 06:00 Dose: 50 mcg Losartan Potassium (Cozaar) 25 mg PO DAILY [facility] Last Admin: 04/18/18 11:30 Dose: 25 mg Morphine Sulfate (Morphine Extended Release Tab) 15 mg PO Q12 [facility] Last Admin: 04/18/18 12:07 Dose: 15 mg Pantoprazole Sodium (Protonix Ec Tab) 40 mg PO DAILY [facility] Last Admin: 04/18/18 11:30 Dose: 40 mg Temazepam (Restoril) 15 mg PO HS PRN PRN Reason: Sleep Last Admin: 04/17/18 20:17 Dose: 15 mg Tramadol HCl (Ultram) 50 mg PO Q8 [facility] Last Admin: 04/18/18 15:11 Dose: 50 mg - Labs Labs: 04/17/18 07:06 04/17/18 07:06 PT 15.2 SECONDS (9.7-12.2) H 04/16/18 16:31 INR 1.4 04/16/18 16:31 APTT 31 SECONDS (21-34) 04/16/18 16:31 Attending/Attestation - Attestation I have personally seen and examined this patient.: Yes I have fully participated in the care of the patient.: Yes I have reviewed all pertinent clinical information, including history, physical exam and plan: Yes Notes (Text): Seen and examined by me.She looks better,no sob,spoke to her daughter at bedside Discussed about pain medication.We will continue morphine 2 mg IV PRN. May increase as needed Her lungs clear patient has history of systolic heart failure. last ECHO shows normal EF. We will continue low dose lasix and monitor creatinine Patient has pleural effusion. will be seen by pulmonary DR Stewart d/w daughter about palliative care Assessment and the plan discussed with the resident and I agree with the documentation
--- NOTE | 2018-04-17 23:33 | CP.PCM.CON ---
Past Patient History - Infectious Disease Hx of Infectious Diseases: None - Tetanus Immunizations Tetanus Immunization: Unknown - Past Medical History & Family History Past Medical History?: Yes - Past Social History Smoking Status: Former Smoker Alcohol: None Drugs: Denies - CARDIAC Hx Atrial Fibrillation: Yes Hx Cardia Arrhythmia: Yes (ATRIAL FIB) Hx Congestive Heart Failure: Yes Hx Hypertension: Yes Hx Pacemaker: Yes - PULMONARY Hx Chronic Obstructive Pulmonary Disease (COPD): Yes - NEUROLOGICAL Hx Neurological Disorder: No - HEENT Hx HEENT Problems: Yes Hx Blind: Yes (ARTIFICIAL LEFT EYE, right eye blind) Hx Glaucoma: Yes (right eye) - RENAL Hx Chronic Kidney Disease: No - ENDOCRINE/METABOLIC Hx Hypothyroidism: Yes - HEMATOLOGICAL/ONCOLOGICAL Hx Anemia: Yes - INTEGUMENTARY Hx Dermatological Problems: No - MUSCULOSKELETAL/RHEUMATOLOGICAL Hx Arthritis: Yes Hx Fractures: Yes (left hip 10 years ago) - GASTROINTESTINAL Hx Gall Bladder Disease: Yes (GALLSTONES) - GENITOURINARY/GYNECOLOGICAL Hx Genitourinary Disorders: Yes (URINARY FREQUENCY) - PSYCHIATRIC Hx Anxiety: Yes Hx Substance Use: No - SURGICAL HISTORY Hx Surgeries: Yes Hx Breast Biopsy: Yes Hx Eye Surgery: Yes (left eye) Hx Hysterectomy: Yes (4o years ago) Hx Mastectomy: Yes (left 08/25/16) Hx Orthopedic Surgery: Yes (left hip 10 yrs ago) - ANESTHESIA Hx Anesthesia: Yes Hx Anesthesia Reactions: No Hx Malignant Hyperthermia: No Meds Allergies/Adverse Reactions: Allergies Allergy/AdvReac Type Severity Reaction Status Date / Time No Known Allergies Allergy Verified 04/05/18 18:07 - Medications Medications: Current Medications Aspirin (Ecotrin) 81 mg PO DAILY [facility] Last Admin: 04/17/18 09:16 Dose: 81 mg Calcium/Vitamin D (Oyster Shell Calcium/Vitamin D 500 Mg-200 Iu) 1 tab PO DAILY [facility] Carvedilol (Coreg) 6.25 mg PO BID [facility] Last Admin: 04/17/18 18:05 Dose: 6.25 mg Home Med (Alendronate Sodium [Binosto]) 1 tab PO DAILY [facility] Home Med (Letrozole [Letrozole]) 1 tab PO PCB [facility] Levothyroxine Sodium (Synthroid) 50 mcg PO DAILY@0630 [facility] Last Admin: 04/17/18 05:54 Dose: 50 mcg Losartan Potassium (Cozaar) 25 mg PO DAILY [facility] Last Admin: 08/29/18 09:16 Dose: 25 mg Morphine Sulfate (Morphine) 2 mg IVP Q4 PRN PRN Reason: Pain, moderate (4-7) Last Admin: 04/17/18 09:15 Dose: 2 mg Pantoprazole Sodium (Protonix Ec Tab) 40 mg PO DAILY [facility] Last Admin: 04/17/18 09:16 Dose: 40 mg Temazepam (Restoril) 15 mg PO HS PRN PRN Reason: Sleep Last Admin: 04/17/18 20:17 Dose: 15 mg Results - Vital Signs Recent Vital Signs: Last Vital Signs Temp 97.3 F L 04/17/18 15:47 Pulse 60 04/17/18 15:47 Resp 20 04/17/18 15:47 BP 106/62 04/17/18 15:47 Pulse Ox 100 04/17/18 16:00 - Labs Result Diagrams: 04/17/18 07:06 04/17/18 07:06 Labs: Laboratory Results - last 24 hr 04/17/18 04/17/18 04/17/18 07:06 07:06 07:06 WBC 6.0 RBC 2.94 L Hgb 9.5 L Hct 27.9 L MCV 94.7 MCH 32.2 H MCHC 34.0 RDW 19.7 H Plt Count 79 L MPV 8.2 Neut % (Auto) 69.8 Lymph % (Auto) 19.[address] [place] % (Auto) 7.2 Eos % (Auto) 2.4 Baso % (Auto) 0.7 Neut # (Auto) 4.2 Lymph # (Auto) 1.2 [place] # (Auto) 0.4 Eos # (Auto) 0.1 Baso # (Auto) 0.0 Sodium 139 Potassium 4.6 Chloride 104 Carbon Dioxide 27 Anion Gap 12 BUN 31 H Creatinine 1.4 H Est GFR ( Amer) 44 Est GFR (Non-Af Amer) 36 Random Glucose 81 Calcium 9.4 Magnesium 1.8 Total Bilirubin 4.1 H AST 215 H ALT 154 H Alkaline Phosphatase 708 H Total Protein 5.8 L Albumin 2.8 L Globulin 3.0 Albumin/Globulin Ratio 0.9 L Free T4 1.63 TSH 3rd Generation 2.23
--- NOTE | 2018-04-17 23:55 | CARD ---
APPROVED REPORT Date of service: 04/16/2018 EKG Measurement Heart [id number] <Conclusion> Atrial-sensed ventricular-paced rhythm Abnormal ECG
[2018-04-18] MEDS: Levothyroxine 50 MCG TAB PO SCH (06:00)
[2018-04-18] MEDS ORDERED: Calcium-Vit D 500 mg-200 Units Tab UD PO SCH (10:00)
[2018-04-18] MEDS: Pantoprazole 40 mg EC Tab PO SCH (11:30)
[2018-04-18] MEDS ORDERED: Morphine 15 mg SR Tab PO SCH (11:45)
--- NOTE | 2018-04-18 15:52 | CP.PCM.DIS ---
<Harry Rod - Last Filed: 04/18/18 16:00> Provider - Provider Date of Admission: 04/16/18 17:38 Attending physician: Thomas Ontiveros MD Time Spent in preparation of Discharge (in minutes): 45 Diagnosis - Discharge Diagnosis (1) Dyspnea Status: Chronic Hospital Course - Lab Results Lab Results: Most Recent Lab Values WBC 6.0 K/uL (4.8-10.8) 04/17/18 07:06 RBC 2.94 Mil/uL (3.80-5.20) L 04/17/18 07:06 Hgb 9.5 g/dL (11.0-16.0) L 04/17/18 07:06 Hct 27.9 % (34.0-47.0) L 04/17/18 07:06 MCV 94.7 fL (81.0-99.0) 04/17/18 07:06 MCH 32.2 pg (27.0-31.0) H 04/17/18 07:06 MCHC 34.0 g/dL (33.0-37.0) 04/17/18 07:06 RDW 19.7 % (11.5-14.5) H 04/17/18 07:06 Plt Count 79 K/uL (130-400) L 04/17/18 07:06 MPV 8.2 fL (7.2-11.7) 04/17/18 07:06 Neut % (Auto) 69.8 % (50.0-75.0) 04/17/18 07:06 Lymph % (Auto) 19.9 % (20.0-40.0) L 04/17/18 07:06 Grainger % (Auto) 7.2 % (0.0-10.0) 04/17/18 07:06 Eos % (Auto) 2.4 % (0.0-4.0) 04/17/18 07:06 Baso % (Auto) 0.7 % (0.0-2.0) 04/17/18 07:06 Neut # (Auto) 4.2 K/uL (1.8-7.0) 04/17/18 07:06 Lymph # (Auto) 1.2 K/uL (1.0-4.3) 04/17/18 07:06 Grainger # (Auto) 0.4 K/uL (0.0-0.8) 04/17/18 07:06 Eos # (Auto) 0.1 K/uL (0.0-0.7) 04/17/18 07:06 Baso # (Auto) 0.0 K/uL (0.0-0.2) 04/17/18 07:06 PT 15.2 SECONDS (9.7-12.2) H 04/16/18 16:31 INR 1.4 04/16/18 16:31 APTT 31 SECONDS (21-34) 04/16/18 16:31 Sodium 139 mmol/L (132-148) 04/17/18 07:06 Potassium 4.6 mmol/L (3.6-5.2) 04/17/18 07:06 Chloride 104 mmol/L (98-107) 04/17/18 07:06 Carbon Dioxide 27 mmol/L (22-30) 04/17/18 07:06 Anion Gap 12 (10-20) 04/17/18 07:06 BUN 31 mg/dL (7-17) H 04/17/18 07:06 Creatinine 1.4 mg/dL (0.7-1.2) H 04/17/18 07:06 Est GFR ( Amer) 44 04/17/18 07:06 Est GFR (Non-Af Amer) 36 04/17/18 07:06 POC Glucose (mg/dL) 99 mg/dL (65-110) 04/16/18 15:37 Random Glucose 81 mg/dL (65-105) 04/17/18 07:06 Calcium 9.4 mg/dl (8.6-10.4) 04/17/18 07:06 Magnesium 1.8 mg/dL (1.6-2.3) 04/17/18 07:06 Total Bilirubin 4.1 mg/dL (0.2-1.3) H 04/17/18 07:06 AST 215 U/L (14-36) H 04/17/18 07:06 ALT 154 U/L (9-52) H 04/17/18 07:06 Alkaline Phosphatase 708 U/L (38-126) H 04/17/18 07:06 Total Creatine Kinase 39 U/L (30-135) 04/16/18 16:31 CK-MB (Mass) 0.34 ng/mL (0.0-3.38) 04/16/18 16:31 Troponin I < 0.0120 ng/mL (0.00-0.120) 04/16/18 16:31 NT-Pro-B Natriuret Pep 540 pg/mL (0-900) 04/16/18 16:31 Total Protein 5.8 g/dL (6.3-8.3) L 04/17/18 07:06 Albumin 2.8 g/dL (3.5-5.0) L 04/17/18 07:06 Globulin 3.0 gm/dL (2.2-3.9) 04/17/18 07:06 Albumin/Globulin Ratio 0.9 (1.0-2.1) L 04/17/18 07:06 Free T4 1.63 ng/dL (0.78-2.19) 04/17/18 07:06 TSH 3rd Generation 2.23 mIU/L (0.46-4.68) 04/17/18 07:06 - Hospital Course Hospital Course: HPI: Patient is a 75 year old female with a past medical history of Parkinson's, peripheral neuropathy, arthritis and osteoporosis presenting to the emergency room s/p fall. Patient was walking with her walker earlier today when her leg started to shake and gave it. This caused her to fall backwards and hit her head on the curb with the walker landing on top of her. She sustained a laceration to the back of her head. She denies any LOC, vision changes, nausea or vomiting. She does not take any anti-coagulation. She reports a headaches but is feeling well otherwise. She experiences tremors in her legs periodically which causes her legs to buckle at random times. This is not a new finding. Patient is accompanied by a family member at bedside that states the patient is at her baseline. Hospital Course: On admission: CT head w/o contrast (04/16/18) performed and showed: Acute right parafalcine subdural hemorrhage, small right parietal scalp laceration with associated subcutaneous gas, no fractures (see full report); Laceration of posterior scalp was closed with sutures x3; Neuro, Neurosurgery consulted, patient moved to ICU In ICU: Repeat CT head w/o contrast (04/17/18) performed and showed: stable head CT including minimal anterior right parafalcine subdural hematoma. No additional acute intracranial findings (see full report) Cervical Spine X-ray (04/17/18) performed and showed: no gross fracture of C1 thru C6 appreciated (see full report) Thoracic Spine X-ray (04/17/18) performed and showed: no gross fracture, generalized osteopenia, mild scoliosis and kyphosis (see full report) Lumbar Spine X-ray (04/17/18) performed and showed: no fracture or gross subluxation (see full report) Scapula X-ray (04/17/18) performed and showed: no fracture or dislocation (see full report) Patient ambulated well with physical therapy and is in no acute distress. Continue patients Parkinsons home medication. Patient cleared for discharge to subacute rehabilitation center. Disclaimer: Written above is a synopsis of the hospital course, please refer to EMR for further details. Plan: Patient is stable for discharge per Dr. Ontiveros for acute shortness of breath. Patient to be discharged home for at home palliative care. Patient should discontinue the following medications: Torsemide Patient should continue taking the following medications: Binosto one tab by mouth daily Xanax one tab by mouth daily as needed Aspirin one tab by mouth daily Calcium + D soft chewable tab 1 each by mouth daily Coreg 1 tab by mouth PO BID Lasix 1 tab by mouth every OTHER day Letrozole 1 tab by mouth daily Synthroid 1 tab by mouth daily Cozaar 1 tab by mouth daily Morphine 1 tab by mouth every 12 hours Restoril 1 tab by mouth at bedtime If symptoms return or worsen please return to the emergency department. Discharge Exam - Head Exam Head Exam: ATRAUMATIC, NORMAL INSPECTION - Eye Exam Eye Exam: Normal appearance Pupil Exam: PERRL - Respiratory Exam Respiratory Exam: NORMAL BREATHING PATTERN - Cardiovascular Exam Cardiovascular Exam: REGULAR RHYTHM, +S1, +S2 - GI/Abdominal Exam GI & Abdominal Exam: Normal Bowel Sounds - Extremities Exam Extremities exam: pedal pulses present - Neurological Exam Neurological exam: Alert, CN II-XII Intact - Skin Skin Exam: Dry, Intact, Warm Discharge Plan - Discharge Medications Prescriptions: Alendronate Sodium [Binosto] 1 tab PO DAILY #14 tablet.eff ALPRAZolam [Xanax] 1 tab PO DAILY PRN #14 tab PRN Reason: Anxiety Aspirin [Ecotrin] 1 tab PO DAILY #14 tabec Calcium Carb/Vitamin D3/Vit K1 [Calcium + D Soft Chewable Tab] 1 each PO DAILY # 14 tab.chew Carvedilol [Coreg] 6.25 mg PO BID #60 tab Furosemide [Lasix] 20 mg PO Q2D #7 tablet Letrozole 1 tab PO PCB #14 tablet Levothyroxine [Synthroid] 50 mcg PO DAILY #14 tab Losartan [Cozaar] 25 mg PO DAILY #14 tab Morphine [Morphine Extended Release Tab] 15 mg PO Q12 #10 tabsr Temazepam [Restoril] 15 mg PO HS #14 cap - Follow Up Plan Condition: FAIR Disposition: HOSPICE - HOME Patient education suggested?: Yes Instructions: Shortness of Breath (Dyspnea) Additional Instructions: Plan: Patient is stable for discharge per Dr. Ontiveros for acute shortness of breath. Patient to be discharged home for at home palliative care. Patient should discontinue the following medications: Torsemide Patient should continue taking the following medications: Binosto one tab by mouth daily Xanax one tab by mouth daily as needed Aspirin one tab by mouth daily Calcium + D soft chewable tab 1 each by mouth daily Coreg 1 tab by mouth PO BID Lasix 1 tab by mouth every OTHER day Letrozole 1 tab by mouth daily Synthroid 1 tab by mouth daily Cozaar 1 tab by mouth daily Morphine 1 tab by mouth every 12 hours Restoril 1 tab by mouth at bedtime If symptoms return or worsen please return to the emergency department. <Thomas Ontiveros - Last Filed: 04/18/18 17:53> Provider - Provider Date of Admission: 04/16/18 17:38 Attending physician: Thomas Ontiveros MD Hospital Course - Lab Results Lab Results: Most Recent Lab Values WBC 6.0 K/uL (4.8-10.8) 04/17/18 07:06 RBC 2.94 Mil/uL (3.80-5.20) L 04/17/18 07:06 Hgb 9.5 g/dL (11.0-16.0) L 04/17/18 07:06 Hct 27.9 % (34.0-47.0) L 04/17/18 07:06 MCV 94.7 fL (81.0-99.0) 04/17/18 07:06 MCH 32.2 pg (27.0-31.0) H 04/17/18 07:06 MCHC 34.0 g/dL (33.0-37.0) 04/17/18 07:06 RDW 19.7 % (11.5-14.5) H 04/17/18 07:06 Plt Count 79 K/uL (130-400) L 04/17/18 07:06 MPV 8.2 fL (7.2-11.7) 04/17/18 07:06 Neut % (Auto) 69.8 % (50.0-75.0) 04/17/18 07:06 Lymph % (Auto) 19.9 % (20.0-40.0) L 04/17/18 07:06 Grainger % (Auto) 7.2 % (0.0-10.0) 04/17/18 07:06 Eos % (Auto) 2.4 % (0.0-4.0) 04/17/18 07:06 Baso % (Auto) 0.7 % (0.0-2.0) 04/17/18 07:06 Neut # (Auto) 4.2 K/uL (1.8-7.0) 04/17/18 07:06 Lymph # (Auto) 1.2 K/uL (1.0-4.3) 04/17/18 07:06 Grainger # (Auto) 0.4 K/uL (0.0-0.8) 04/17/18 07:06 Eos # (Auto) 0.1 K/uL (0.0-0.7) 04/17/18 07:06 Baso # (Auto) 0.0 K/uL (0.0-0.2) 04/17/18 07:06 PT 15.2 SECONDS (9.7-12.2) H 04/16/18 16:31 INR 1.4 04/16/18 16:31 APTT 31 SECONDS (21-34) 04/16/18 16:31 Sodium 139 mmol/L (132-148) 04/17/18 07:06 Potassium 4.6 mmol/L (3.6-5.2) 04/17/18 07:06 Chloride 104 mmol/L (98-107) 04/17/18 07:06 Carbon Dioxide 27 mmol/L (22-30) 04/17/18 07:06 Anion Gap 12 (10-20) 04/17/18 07:06 BUN 31 mg/dL (7-17) H 04/17/18 07:06 Creatinine 1.4 mg/dL (0.7-1.2) H 04/17/18 07:06 Est GFR ( Amer) 44 04/17/18 07:06 Est GFR (Non-Af Amer) 36 04/17/18 07:06 POC Glucose (mg/dL) 99 mg/dL (65-110) 04/16/18 15:37 Random Glucose 81 mg/dL (65-105) 04/17/18 07:06 Calcium 9.4 mg/dl (8.6-10.4) 04/17/18 07:06 Magnesium 1.8 mg/dL (1.6-2.3) 04/17/18 07:06 Total Bilirubin 4.1 mg/dL (0.2-1.3) H 04/17/18 07:06 AST 215 U/L (14-36) H 04/17/18 07:06 ALT 154 U/L (9-52) H 04/17/18 07:06 Alkaline Phosphatase 708 U/L (38-126) H 04/17/18 07:06 Total Creatine Kinase 39 U/L (30-135) 04/16/18 16:31 CK-MB (Mass) 0.34 ng/mL (0.0-3.38) 04/16/18 16:31 Troponin I < 0.0120 ng/mL (0.00-0.120) 04/16/18 16:31 NT-Pro-B Natriuret Pep 540 pg/mL (0-900) 04/16/18 16:31 Total Protein 5.8 g/dL (6.3-8.3) L 04/17/18 07:06 Albumin 2.8 g/dL (3.5-5.0) L 04/17/18 07:06 Globulin 3.0 gm/dL (2.2-3.9) 04/17/18 07:06 Albumin/Globulin Ratio 0.9 (1.0-2.1) L 04/17/18 07:06 Free T4 1.63 ng/dL (0.78-2.19) 04/17/18 07:06 TSH 3rd Generation 2.23 mIU/L (0.46-4.68) 04/17/18 07:06 Attending/Attestation - Attestation I have personally seen and examined this patient.: Yes I have fully participated in the care of the patient.: Yes I have reviewed all pertinent clinical information, including history, physical exam and plan: Yes Notes (Text): Discussed with daughter at bedside .Discharge home with hospice care 04/18/18 17:52
[2018-04-18 16:16] VITALS: BP 120/72; PULSE 69; RESP 20; TEMP 97.5; O2SAT 99
== END 2018-04-18 17:26 | disposition hospice, home (50) ==
LOC: C.ER 15:34 → C.9E 17:38 → C.6T 18:13
PROVIDERS: ADMIT Internal Medicine; ATTEND Internal Medicine
DX: I11.0 Hypertensive heart disease with heart failure (principal); S06.5X0A Traumatic subdural hemorrhage without loss of consciousness, initial encounter; I50.22 Chronic systolic (congestive) heart failure; E03.9 Hypothyroidism, unspecified; D64.9 Anemia, unspecified; G20 Parkinson's disease; I48.91 Unspecified atrial fibrillation; J44.9 Chronic obstructive pulmonary disease, unspecified; M81.0 Age-related osteoporosis without current pathological fracture; S01.01XA Laceration without foreign body of scalp, initial encounter; Z51.5 Encounter for palliative care; Z66 Do not resuscitate; Z85.3 Personal history of malignant neoplasm of breast; Z87.891 Personal history of nicotine dependence; Z90.10 Acquired absence of unspecified breast and nipple; Z95.0 Presence of cardiac pacemaker; W01.0XXA Fall on same level from slipping, tripping and stumbling without subsequent striking against object, initial encounter
CPT/HCPCS: 36415; 71045; 80053; 82550; 82553; 82948; 83735; 83880; 84439; 84443; 84484; 85025; 85610; 85730; 93005; 96374; 99285; G0378; J1940; J2270

== ENCOUNTER 2018-04-21 11:57 | Inpatient (IN) | payer MEDICARE, OTHER ==
[2018-04-21 11:58] VITALS: BMI 40.4
--- NOTE | 2018-04-21 12:25 | C.PDOC ---
History Of Present Illness Patient's history is limited due to her clinical condition. 83 year old female presents to the emergency department accompanied by her family who report worsening altered mental status and difficulty breathing for the last three days. Patient has a history of metastatic cancer, and is currently on hospice, do not resuscitate, do not intubate. Patient's family also reports decreased appetite, nausea, vomiting, and positive fever at home today. As per family, patient has been non-interactive and non-verbal today. LIMITED DUE TO CLIN COND PER FAMILY, WORSENING AMS, DIFFICULTY BREATHING X 3 DAYS. HO METASTATIC CA ON HOSPICE, DNR/DNI. DECR APPETITE, [place], +FEVER @ HOME TODAY. TODAY WORSE BREATHING , NONINTERACTIVE, NONVERBAL. ROS UTO EXAM MOD DIST, TOXIC HEENT CHRONIC R EYE BLINDNESS; L EYE SLUGGISH; POOR GAG LUNGS SHALLOW RESP, BRADYPNEA SOUNDS B/L CV RRR PALP RADIAL PULSE NEURO POOR GAG, MIN RESPONSE TO PAIN, NONVERBAL SKIN WARM DRY REMAINDER NEG MDM AMS, FEVER HO MET CA DNR/DNI RO SEPSIS. Chief Complaint (Nursing): Altered Mental Status History Per: Family History/Exam Limitations: clinical condition Onset/Duration Of Symptoms: Days (3) Associated Symptoms: Fever Past Medical History Reviewed: Historical Data, Nursing Documentation, Vital Signs Vital Signs: Last Vital Signs Temp 97 F L 04/21/18 12:21 Pulse 67 04/21/18 12:07 Resp 28 H 04/21/18 12:29 BP 109/61 04/21/18 12:07 Pulse Ox 100 04/21/18 13:35 - Medical History PMH: Anemia, Anxiety, Arthritis, Atrial Fibrillation, Cardia Arrhythmia (ATRIAL FIB), CHF, COPD, Fractures (left hip 10 years ago), Gall Bladder Disease ( GALLSTONES), HTN, Hypothyroidism, Malignancy (Breast) Denies: Chronic Kidney Disease Surgical History: Endoscopy, Pacemaker - [facility] Procedures ASSISTANCE WITH RESPIRATORY VENTILATION, 24-96 HRS, CPAP (08/02/16) DRAINAGE OF CHEST SUBCU/FASCIA, OPEN APPROACH (09/12/16) EXCISION OF LEFT AXILLARY LYMPHATIC, OPEN APPROACH, DIAGN (08/25/16) EXCISION OF LEFT BREAST, OPEN APPROACH (08/25/16) EXTRACTION OF CHEST SKIN, EXTERNAL APPROACH (09/12/16) FLUOROSCOPY OF SUP VENA CAVA USING L OSM CONTRAST, GUIDANCE (09/19/16) INSERTION OF INFUSION DEV INTO SUP VENA CAVA, PERC APPROACH (09/19/16) INSERTION OF INFUSION DEVICE INTO UPPER VEIN, PERC APPROACH (04/05/18) REPLAC ANY TYPE PACE DEV W/ DUAL CHAMBER DEVICE (11/18/14) TRANSFUSE NONAUT PLATELETS IN PERIPH VEIN, PERC (04/05/18) TRANSFUSE NONAUT RED BLOOD CELLS IN PERIPH VEIN, PERC (04/05/18) Family History: States: Unknown Family Hx - Social History Hx Tobacco Use: No Hx Alcohol Use: No Hx Substance Use: No - Immunization History Hx Tetanus Toxoid Vaccination: No Hx Influenza Vaccination: No Hx Pneumococcal Vaccination: No Review Of Systems Review Of Systems: ROS cannot be obtained secondary to pt's inabilty to answer questions. Physical Exam - Physical Exam Appears: Toxic, In Acute Distress (moderate) Skin: Warm, Dry Head: Atraumatic, Normacephalic Eye(s): bilateral: Other (right eye chronic blindness, left eye sluggish) Oral Mucosa: Moist Throat: Other (poor gag) Neck: Normal, Supple Chest: Symmetrical Cardiovascular: Rhythm Regular Respiratory: Decreased Breath Sounds (shallow; bradypnea sounds B/L) Pulses: Left Radial: Normal, Right Radial: Normal Neurological/Psych: No Oriented x3, No Normal Speech, No Normal Reflexes, Other (minimal response to pain, nonverpal) ED Course And Treatment - Laboratory Results Result Diagrams: 04/21/18 13:10 04/21/18 13:10 ECG: Interpreted By Ia ECG Rhythm: V Paced ECG Interpretation: No Changes From Prior Rate From EC O2 Sat by Pulse Oximetry: 100 (RA) Pulse Ox Interpretation: Normal - Radiology CXR: Interpreted by Me, Viewed By Ia CXR Interpretation: Yes: No Acute Disease, Other (unchanged from prior) Progress Note: Plan: ABG. VBG. EKG. BNP. CMP. Magnesium. Phosphorus. Troponin I. CBC. PTT. Prothrombin Time. CXR. Blood Culture. Urine Culture. Urinalysis Progress - Re-Evaluation Re-evaluation Note: 04/21/18 12:20 ORAL AIRWAY PLACED, NRB APPLIED. FAMILY, DAUGHTER/POA @ BEDSIDE. CONFIRM DNR/DNI STATUS. ORDER WRITTEN. ADVISED CURRENT CLIN STATUS COULD PROGRESS TO IMMINENT DEMISE. FAMILY VOICES UNDERSTANDING AND AGREES W ER PLAN. WILL CONT WORTHY, RESUSC D/W DR LA: AWARE OF ER FINDINGS AND AGREES W MGMT PLAN 04/21/18 13:30 ADVISED OF ABG RESULTS BY RESP TECH. CMP PENDING. HYPERKAL TX GIVEN. VS [facility], PERSIST AGONAL RESP [facility] INITIAL EVAL 04/21/18 14:14 D/W DR SERRATO ADMIT FLOOR - Data Reviewed Data Reviewed: Lab, Diagnostic imaging, EKG, Old records - Critical Care Citical Care: Excluding Proc Time Critical Care Time: 105 minutes - Continuity of Care Discussed patient case with:: Family-HIPPA compliant, PMD Medical Decision Making Medical Decision Making: MDM AMS, FEVER HO MET CA DNR/DNI RO SEPSIS. Disposition Counseled Patient/Family Regarding: Studies Performed, Diagnosis - Disposition Disposition: HOSPITALIZED Disposition Time: 14:12 Condition: CRITICAL Forms: Transfer Course Computer System ([place]ijing) (Ecuadorean) - POA Present On Arrival: None - Clinical Impression Clinical Impression: Hyperkalemia, Hospice care patient, Respiratory distress, acute, Metastatic cancer, Acute renal insufficiency - Scribe Statement The provider has reviewed the documentation as recorded by the Scribe (Rc Sepulveda) Provider Attestation: All medical record entries made by the Scribe were at my direction and personally dictated by me. I have reviewed the chart and agree that the record accurately reflects my personal performance of the history, physical exam, medical decision making, and the department course for this patient. I have also personally directed, reviewed, and agree with the discharge instructions and disposition. Decision To Admit - Pt Status Changed To: Hospital Disposition Of: Inpatient - Admit Certification Admit to Inpatient:: After my assessment, the patient will require hospitalization for at least two midnights. This is because of the severity of symptoms shown, intensity of services needed, and/or the medical risk in this patient being treated as an outpatient. - InPatient: Physician Admission Certification: I certify that this patient requires 2 or more midnights of care for the following reason:: SEE NOTE - . Bed Request Type: Regular Admitting Physician: Samira Serrato Patient Diagnosis: Hyperkalemia, Hospice care patient, Respiratory distress, acute, Metastatic cancer, Acute renal insufficiency
[2018-04-21 13:16] LABS: BASO % 0.7 % (0.0-2.0); EOS # 0.1 K/uL (0.0-0.7); HEMOGLOBIN 9.7 g/dL (11.0-16.0); LYMPH # 1.3 K/uL (1.0-4.3); LYMPH % 24.4 % (20.0-40.0); MEAN CELL VOLUME 94.1 fL (81.0-99.0); MEAN CORPUSCULAR HEMOGLOBIN 32.3 pg (27.0-31.0); MEAN CORPUSCULAR HGB CONC 34.3 g/dL (33.0-37.0); MEAN PLATELET VOLUME 8.6 fL (7.2-11.7); MONO # 0.5 K/uL (0.0-0.8); MONO % 9.3 % (0.0-10.0); NEUT # 3.6 K/uL (1.8-7.0); NEUT % 64.6 % (50.0-75.0); NRBC % 1.4 % (0.0-2.0); RED CELL DISTRIBUTION WIDTH 20.4 % (11.5-14.5); WHITE BLOOD COUNT 5.5 K/uL (4.8-10.8)
[2018-04-21 13:23] LABS: INR 1.6; PROTHROMBIN TIME 17.2 SECONDS (9.7-12.2)
[2018-04-21 13:26] LABS: ABG ALLEN TEST P; ARTERIAL BLOOD GAS O2 SAT 100.6 % (95-98); ARTERIAL BLOOD GAS PCO2 25 mm/Hg (35-45); ARTERIAL BLOOD GAS PH 7.49 (7.35-7.45); ARTERIAL BLOOD GAS PO2 314 mm/Hg (80-100); ARTERIAL BLOOD GAS TCO2 19.9 mmol/L (22-28)
[2018-04-21] MEDS ORDERED: Calcium Gluconate 4.65 MEQ in Dextrose 5% In Water 100 ML IV STA (13:28)
[2018-04-21] MEDS ORDERED: (Novolin R) Insulin Human Regular 100 units/ml vial IV STA (13:29)
[2018-04-21] MEDS ORDERED: Dextrose 50% SYRINGE Inj (50 ml) IVP STA (13:29)
[2018-04-21 13:37] LABS: B-TYPE NATRIURETIC PEPTIDE 871 pg/mL (0-900)
[2018-04-21 13:45] LABS: ALB/GLOB RATIO 0.9 (1.0-2.1); ALBUMIN 2.8 g/dL (3.5-5.0); ALT/SGPT 560 U/L (9-52); AST/SGOT 1011 U/L (14-36); BLOOD UREA NITROGEN 79 mg/dL (7-17); GFR NON-AFRICAN AMERICAN 11
--- NOTE | 2018-04-21 14:23 | RAD ---
Date of service: 04/21/2018 HISTORY: Sepsis Patient COMPARISON: Comparison chest 04/16/2018. FINDINGS: LUNGS: Vague opacity seen in both CP angle regions left greater than right, that are nonspecific though could represent atelectasis on with small effusions. Developing infiltrates could be excluded with followup radiographs. PLEURA: As above. No pneumothorax apparent. CARDIOVASCULAR: Cardiac silhouette stable. No change bipolar pacemaker/ defibrillator OSSEOUS STRUCTURES: No significant abnormalities. VISUALIZED UPPER ABDOMEN: Normal. OTHER FINDINGS: None. IMPRESSION: Vague opacity seen in both CP angle regions left greater than right, that are nonspecific though could represent atelectasis on with small effusions. Developing infiltrates could be excluded with followup radiographs.
[2018-04-21] MEDS ORDERED: (Novolin R) Insulin Human Regular 100 units/ml vial ONE (14:39)
[2018-04-21] MEDS ORDERED: Calcium Gluconate 4.65 mEq/10 ml Inj ONE (14:39)
[2018-04-21] MEDS ORDERED: Dextrose 50% SYRINGE Inj (50 ml) ONE (14:40)
[2018-04-21 14:46] LABS: SQUAMOUS EPITHIAL 2 /hpf (0-5); URINE BACTERIA MOD (<OCC); URINE BILIRUBIN NEGATIVE (NEGATIVE); URINE BLOOD NEGATIVE (NEGATIVE); URINE CLARITY Hazy (Clear); URINE COLOR Amber (YELLOW); URINE GLUCOSE (UA) NORMAL (Normal); URINE LEUKOCYTE ESTERASE 3+ Leu/uL (Negative); URINE PROTEIN NEGATIVE (NEGATIVE)
[2018-04-21] MEDS ORDERED: cefTRIAXone IV 1 gm in Dextros 50 ML IV STA (15:01)
[2018-04-21] MEDS ORDERED: Albuterol-Ipratrop 3 mg / 0.5 (3 ml) UD INH STA (15:43)
[2018-04-21] MEDS ORDERED: Sodium Chloride 0.9% 250 ML IV ONE (16:00)
--- NOTE | 2018-04-21 19:08 | CP.PCM.HP ---
History of Present Illness - History of Present Illness History of Present Illness: Chief complaint: Worsening altered mental status HPI: 83-year-old female with a history of anemia, atrial fibrillation, history of congestive heart failure, COPD, hypertension, hypothyroidism, history of breast cancer, status post mastectomy, chemotherapy, recently hospitalized multiple times with worsening medical condition. During the last hospitalization patient admitted with worsening mental status, also having history of liver disease, worsening liver enzymes noted. Patient was sent home with home hospice given the high risk of mortality. But in the house according to the family she was getting worse. Chief was not eating well. And the family was very concerned that she is going to in the house, so they brought her to the emergency room. In the ER patient was having agonal breathing. Blood works revealed severe dehydration hyperkalemia. As the patient wanted to have a treatment as per the family patient started on intravenous IV fluid and a needed hospitalization Patient is nonverbal. Comatose 2. Not responding unstably, but responding to only deep stability Past medical history: anemia, anxiety, arthritis, atrial fibrillation, CHF, COPD , cholelithiasis, HTN, hypothyroidism, malignancy (breast) Past surgical history: mastectomy (2016), pacemaker (2010), left hip surgery Social history: 5 cans of beer per day past 20 years. 2 cigarettes per week past 20 years. Denies recreational drug use. Allergies: DA Pharmacy: [facility] Review of system: Patient is comatose to Not responding. On examination: Patient is unresponsive. Hypotension noted. Oxygen saturation is well. Chest bilateral diffuse rhonchi and wheezing noted irregular heart sound noted. Abdominal distention and tenderness noted. Edema bilaterally noted Labs are showing evidence of potassium 6.4 Creatinine 3.8 Very highly elevated AST and the liver enzymes noted Chest x-ray showing nonspecific changes. Assessment/recommendation: 83-year-old female with a history of anemia in the past atrial fibrillation, congestive heart failure, COPD, hypertension, hypothyroidism, history of breast cancer, status post mastectomy, chemotherapy, chronic liver disease associated with liver cirrhosis in the possible ascites end-stage organ disease, and the was on hospice, brought into the emergency room with worsening mental status changes. In my opinion patient is possibly having worsening symptoms of severe dehydration, worsening renal failure, liver failure. Multiorgan failure, with the failure to thrive now. Urinary tract infection also possible. After discussion with the family, they wanted to have fluid, antibiotic for now. But I explained the family regarding the overall prognosis. Condition is critical. Prognosis very poor. They will be considering the hospice again. Meanwhile will continue the IV fluids now Present on Admission - Present on Admission Any Indicators Present on Admission: No History of DVT/PE: No History of Uncontrolled Diabetes: No Urinary Catheter: No Decubitus Ulcer Present: No Past Patient History - Infectious Disease Hx of Infectious Diseases: None - Tetanus Immunizations Tetanus Immunization: Unknown - Past Medical History & Family History Past Medical History?: Yes - Past Social History Smoking Status: Never Smoked - CARDIAC Hx Atrial Fibrillation: Yes Hx Cardia Arrhythmia: Yes Hx Congestive Heart Failure: Yes Hx Hypertension: Yes Hx Pacemaker: Yes - PULMONARY Hx Chronic Obstructive Pulmonary Disease (COPD): Yes - NEUROLOGICAL Hx Neurological Disorder: No - HEENT Hx HEENT Problems: Yes Hx Blind: Yes (ARTIFICIAL LEFT EYE, right eye blind) Hx Glaucoma: Yes (right eye) - RENAL Hx Chronic Kidney Disease: No - ENDOCRINE/METABOLIC Hx Hypothyroidism: Yes - HEMATOLOGICAL/ONCOLOGICAL Hx Anemia: Yes - INTEGUMENTARY Hx Dermatological Problems: No - MUSCULOSKELETAL/RHEUMATOLOGICAL Hx Arthritis: Yes Hx Falls: No Hx Fractures: Yes (left hip 10 years ago) - GASTROINTESTINAL Hx Gall Bladder Disease: Yes (GALLSTONES) - GENITOURINARY/GYNECOLOGICAL Hx Genitourinary Disorders: Yes (URINARY FREQUENCY) - PSYCHIATRIC Hx Anxiety: Yes Hx Substance Use: No - SURGICAL HISTORY Hx Surgeries: Yes Hx Breast Biopsy: Yes Hx Eye Surgery: Yes (left eye) Hx Hysterectomy: Yes (4o years ago) Hx Mastectomy: Yes (left 08/25/16) Hx Orthopedic Surgery: Yes (left hip 10 yrs ago) - ANESTHESIA Hx Anesthesia: Yes Hx Anesthesia Reactions: No Hx Malignant Hyperthermia: No Meds Allergies/Adverse Reactions: Allergies Allergy/AdvReac Type Severity Reaction Status Date / Time No Known Allergies Allergy Verified 04/21/18 12:22 Results - Vital Signs Recent Vital Signs: Last Vital Signs Temp 96.9 F L 04/21/18 15:07 Pulse 74 04/21/18 15:07 Resp 22 04/21/18 15:07 BP 126/49 L 04/21/18 15:07 Pulse Ox 99 04/21/18 15:07 - Labs Result Diagrams: 04/22/18 07:59 04/22/18 07:59 Labs: Laboratory Results - last 24 hr 04/21/18 04/21/18 04/21/18 12:06 13:10 13:10 WBC 5.5 RBC 3.00 L Hgb 9.7 L Hct 28.3 L MCV 94.1 MCH 32.3 H MCHC 34.3 RDW 20.4 H Plt Count 80 L MPV 8.6 Neut % (Auto) 64.6 Lymph % (Auto) 24.4 [place] % (Auto) 9.3 Eos % (Auto) 1.0 Baso % (Auto) 0.7 Neut # (Auto) 3.6 Lymph # (Auto) 1.3 [place] # (Auto) 0.5 Eos # (Auto) 0.1 Baso # (Auto) 0.0 Differential Comment PT 17.2 H INR 1.6 APTT 34 Puncture Site pCO2 pO2 HCO3 ABG pH ABG Total CO2 ABG O2 Saturation ABG Base Excess Jeffrey Test ABG Potassium A-a O2 Difference Respiratory Index Glucose Lactate FiO2 Crit Value Called To Crit Value Called By Crit Value Read Back Blood Gas Notified Time Sodium Potassium Chloride Carbon Dioxide Anion Gap BUN Creatinine Est GFR ( Amer) Est GFR (Non-Af Amer) POC Glucose (mg/dL) 87 Random Glucose Calcium Phosphorus Magnesium Total Bilirubin AST ALT Alkaline Phosphatase Troponin I NT-Pro-B Natriuret Pep Total Protein Albumin Globulin Albumin/Globulin Ratio Arterial Blood Potassium Urine Color Urine Clarity Urine pH Ur Specific [place] Urine Protein Urine Glucose (UA) Urine Ketones Urine Blood Urine Nitrate Urine Bilirubin Urine Urobilinogen Ur Leukocyte Esterase Urine WBC (Auto) Urine RBC (Auto) Ur Squamous Epith Cells Urine Bacteria Hyaline Casts 04/21/18 04/21/18 04/21/18 13:10 13:22 14:34 WBC RBC Hgb Hct MCV MCH MCHC RDW Plt Count MPV Neut % (Auto) Lymph % (Auto) [place] % (Auto) Eos % (Auto) Baso % (Auto) Neut # (Auto) Lymph # (Auto) [place] # (Auto) Eos # (Auto) Baso # (Auto) Differential Comment PT INR APTT Puncture Site Rra pCO2 25 L pO2 314 H HCO3 23.0 ABG pH 7.49 H ABG Total CO2 19.9 L ABG O2 Saturation 100.6 H ABG Base Excess -2.6 L Jeffrey Test P ABG Potassium 6.2 H* A-a O2 Difference 368.0 Respiratory Index 1.2 Glucose 86 Lactate 1.7 FiO2 100.0 Crit Value Called To Lois marcum md Crit Value Called By Alphonso bailon technical inspector Crit Value Read Back Y Blood Gas Notified Time 1327 Sodium 136 133.0 Potassium 6.4 H* D Chloride 103 106.0 Carbon Dioxide 19 L Anion Gap 20 BUN 79 H Creatinine 3.8 H Est GFR ( Amer) 14 Est GFR (Non-Af Amer) 11 POC Glucose (mg/dL) Random Glucose 90 Calcium 8.0 L Phosphorus 4.4 Magnesium 2.1 Total Bilirubin 11.1 H AST 1011 H ALT 560 H D Alkaline Phosphatase 1256 H Troponin I < 0.0120 NT-Pro-B Natriuret Pep 871 Total Protein 6.1 L Albumin 2.8 L Globulin 3.3 Albumin/Globulin Ratio 0.9 L Arterial Blood Potassium 6.2 H* Urine Color Caren Urine Clarity Hazy Urine pH 6.0 Ur Specific [place] 1.013 Urine Protein Negative Urine Glucose (UA) Normal Urine Ketones Negative Urine Blood Negative Urine Nitrate Negative Urine Bilirubin Negative Urine Urobilinogen 4.0 H Ur Leukocyte Esterase 3+ H Urine WBC (Auto) 84 H Urine RBC (Auto) 3 Ur Squamous Epith Cells 2 Urine Bacteria Mod H Hyaline Casts 6-10 H 04/21/18 17:13 WBC RBC Hgb Hct MCV MCH MCHC RDW Plt Count MPV Neut % (Auto) Lymph % (Auto) [place] % (Auto) Eos % (Auto) Baso % (Auto) Neut # (Auto) Lymph # (Auto) [place] # (Auto) Eos # (Auto) Baso # (Auto) Differential Comment PT INR APTT Puncture Site pCO2 pO2 HCO3 ABG pH ABG Total CO2 ABG O2 Saturation ABG Base Excess Jeffrey Test ABG Potassium A-a O2 Difference Respiratory Index Glucose Lactate FiO2 Crit Value Called To Crit Value Called By Crit Value Read Back Blood Gas Notified Time Sodium Potassium Chloride Carbon Dioxide Anion Gap BUN Creatinine Est GFR ( Amer) Est GFR (Non-Af Amer) POC Glucose (mg/dL) 82 Random Glucose Calcium Phosphorus Magnesium Total Bilirubin AST ALT Alkaline Phosphatase Troponin I NT-Pro-B Natriuret Pep Total Protein Albumin Globulin Albumin/Globulin Ratio Arterial Blood Potassium Urine Color Urine Clarity Urine pH Ur Specific [place] Urine Protein Urine Glucose (UA) Urine Ketones Urine Blood Urine Nitrate Urine Bilirubin Urine Urobilinogen Ur Leukocyte Esterase Urine WBC (Auto) Urine RBC (Auto) Ur Squamous Epith Cells Urine Bacteria Hyaline Casts
[2018-04-21] MEDS: Albuterol-Ipratrop 3 mg / 0.5 (3 ml) UD INH SCH (19:15)
[2018-04-22] MEDS: Albuterol-Ipratrop 3 mg / 0.5 (3 ml) UD INH SCH ×4 (02:11→19:28)
[2018-04-22 08:12] LABS: BASO % 0.7 % (0.0-2.0); EOS % 1.1 % (0.0-4.0); HEMOGLOBIN 8.6 g/dL (11.0-16.0); MEAN CELL VOLUME 94.9 fL (81.0-99.0); MEAN CORPUSCULAR HEMOGLOBIN 32.9 pg (27.0-31.0); MEAN CORPUSCULAR HGB CONC 34.6 g/dL (33.0-37.0); MEAN PLATELET VOLUME 8.1 fL (7.2-11.7); MONO # 0.4 K/uL (0.0-0.8); NEUT # 2.6 K/uL (1.8-7.0); NEUT % 64.2 % (50.0-75.0); NRBC % 1.1 % (0.0-2.0); RBC 2.62 Mil/uL (3.80-5.20); RED CELL DISTRIBUTION WIDTH 21.5 % (11.5-14.5); WHITE BLOOD COUNT 4.1 K/uL (4.8-10.8)
[2018-04-22 08:40] LABS: ALB/GLOB RATIO 0.8 (1.0-2.1); ALBUMIN 2.6 g/dL (3.5-5.0); CALCIUM 8.1 mg/dl (8.6-10.4)
--- NOTE | 2018-04-22 21:20 | CP.PCM.PN ---
Subjective - Date & Time of Evaluation Date of Evaluation: 04/22/18 Time of Evaluation: 21:19 - Subjective Subjective: Slightly more awake. But family is concerned about distress with the pain. Nonspecific distress noted, pain unable to localize. Overall patient prognosis is very poor Patient is morning with the pain at this time Vital signs otherwise stable Unable to feed her. IV fluid is on. Discussed with the family. Will plan for hospice possibly tomorrow Objective - Vital Signs/Intake and Output Vital Signs (last 24 hours): Temp Pulse Resp BP Pulse Ox 97.9 F 93 H 20 114/64 95 04/22/18 15:00 04/22/18 15:00 04/22/18 15:00 04/22/18 15:00 04/22/18 15:00 Intake and Output: 04/22/18 04/23/18 18:59 06:59 Intake Total 540 Output Total 750 Balance -210 - Medications Medications: Current Medications Albuterol/Ipratropium (Duoneb 3 Mg/0.5 Mg (3 Ml) Ud) 3 ml INH RQ6 [facility] Last Admin: 04/22/18 19:28 Dose: 3 ml Heparin Sodium (Porcine) (Heparin) 5,000 units SC Q12 [facility] Last Admin: 04/22/18 09:17 Dose: 5,000 units Sodium Bicarbonate 100 meq/ (Sodium Chloride) 1,100 mls @ 75 mls/hr IV .[id number] [facility] Last Admin: 04/22/18 11:19 Dose: 75 mls/hr Dextrose (Dextrose 10% In Water) 1,000 mls @ 30 mls/hr IV .Q24H [facility] Last Admin: 04/22/18 16:00 Dose: 30 mls/hr Ceftriaxone Sodium 1 gm/ (Sodium Chloride) 100 mls @ 100 mls/hr IVPB Q12H [facility] PRN Reason: Protocol Last Admin: 04/22/18 16:00 Dose: 100 mls/hr Morphine Sulfate (Morphine) 1 mg IVP Q4 PRN PRN Reason: Pain, moderate (4-7) Last Admin: 04/22/18 20:52 Dose: 1 mg Pantoprazole Sodium (Protonix Inj) 40 mg IVP DAILY [facility] Last Admin: 04/22/18 09:17 Dose: 40 mg - Labs Labs: 04/22/18 07:59 04/22/18 07:59 PT 17.2 SECONDS (9.7-12.2) H 04/21/18 13:10 INR 1.6 04/21/18 13:10 APTT 34 SECONDS (21-34) 04/21/18 13:10
[2018-04-23] MEDS: Albuterol-Ipratrop 3 mg / 0.5 (3 ml) UD INH SCH ×4 (01:35→20:13)
--- NOTE | 2018-04-23 16:10 | CARD ---
APPROVED REPORT Date of service: 04/21/2018 EKG Measurement Heart [id number] P72 [id number] <Conclusion> Atrial-sensed ventricular-paced rhythm Abnormal ECG
[2018-04-23 16:43] VITALS: RESP 20
[2018-04-23] MEDS ORDERED: Dextrose 5%/0.9% NS 1,000 ML IV ONE (20:11)
--- NOTE | 2018-04-23 20:13 | CP.PCM.PN ---
Subjective - Date & Time of Evaluation Date of Evaluation: 04/23/18 Time of Evaluation: 20:11 - Subjective Subjective: Patient is not responding. Agonal breathing noted. Still morning with the pain. Restlessness noted. Vital signs otherwise stable. Chest good air entry Regular heart sound. Nontender abdomen. Urine output is on the low side. No recent labs today Patient now admitted with the worsening mental status changes, advanced to liver disease, hepatic encephalopathy. Acute renal failure. Will continue the IV hydration. Spoke to the family. Family is agreeing for hospice. Will plan for hospice either in hospital, are correction. Will follow-up the patient Objective - Vital Signs/Intake and Output Vital Signs (last 24 hours): Temp Pulse Resp BP Pulse Ox 98.1 F 80 20 90/57 L 100 04/23/18 16:00 04/23/18 16:00 04/23/18 16:00 04/23/18 16:00 04/23/18 16:00 Intake and Output: 04/23/18 04/24/18 18:59 06:59 Intake Total 920 Output Total 400 Balance 520 - Medications Medications: Current Medications Albuterol/Ipratropium (Duoneb 3 Mg/0.5 Mg (3 Ml) Ud) 3 ml INH RQ6 [facility] Last Admin: 04/23/18 14:02 Dose: 3 ml Heparin Sodium (Porcine) (Heparin) 5,000 units SC Q12 [facility] Last Admin: 04/23/18 09:17 Dose: 5,000 units Ceftriaxone Sodium 1 gm/ (Sodium Chloride) 100 mls @ 100 mls/hr IVPB Q12H [facility] PRN Reason: Protocol Last Admin: 04/23/18 16:53 Dose: 100 mls/hr Lorazepam (Ativan) 1 mg IVP Q6H PRN PRN Reason: Anxiety Last Admin: 04/23/18 15:10 Dose: 1 mg Morphine Sulfate (Morphine) 2 mg IVP Q2 PRN PRN Reason: Pain, severe (8-10) Last Admin: 04/23/18 17:57 Dose: 2 mg Pantoprazole Sodium (Protonix Inj) 40 mg IVP DAILY [facility] Last Admin: 04/23/18 09:16 Dose: 40 mg - Labs Labs: 04/22/18 07:59 04/22/18 07:59 PT 17.2 SECONDS (9.7-12.2) H 04/21/18 13:10 INR 1.6 04/21/18 13:10 APTT 34 SECONDS (21-34) 04/21/18 13:10
[2018-04-23] MEDS ORDERED: Morphine Sulfate 250 MG in Dextrose 5% In Water 240 ML IV PRN (21:54)
[2018-04-24] MEDS: Albuterol-Ipratrop 3 mg / 0.5 (3 ml) UD INH SCH ×3 (01:51→14:00)
[2018-04-24] MEDS ORDERED: Morphine Sulfate 250 MG in Dextrose 5% In Water 240 ML IV PRN ×2 (08:29→16:00)
[2018-04-24 15:54] VITALS: BP 127/66; PULSE 76; TEMP 97.8; O2SAT 99
--- NOTE | 2018-04-24 16:17 | CP.PCM.PN ---
Subjective - Date & Time of Evaluation Date of Evaluation: 04/24/18 Time of Evaluation: 11:00 - Subjective Subjective: patient seen today, NAD , occasional morns with pain, on morphine drip for pain family at bed side Objective - Vital Signs/Intake and Output Vital Signs (last 24 hours): Temp Pulse Resp BP Pulse Ox 97.8 F 76 20 127/66 99 04/24/18 15:46 04/24/18 15:46 04/24/18 15:46 04/24/18 15:46 04/24/18 15:46 Intake and Output: 04/24/18 04/24/18 06:59 18:59 Intake Total 800 Output Total 300 300 Balance 500 -300 - Medications Medications: Current Medications Acetaminophen (Tylenol 650 Mg Supp) 650 mg NE Q6 PRN PRN Reason: Fever >100.4 F Morphine Sulfate 250 mg/ (Dextrose) 250 mls @ 4 mls/hr IV .Q24H PRN; Protocol PRN Reason: Pain, severe (8-10) Lorazepam (Ativan) 1 mg IVP Q6H [facility] Lorazepam (Ativan) 1 mg IVP Q4 PRN PRN Reason: Anxiety - Labs Labs: 04/22/18 07:59 04/22/18 07:59 PT 17.2 SECONDS (9.7-12.2) H 04/21/18 13:10 INR 1.6 04/21/18 13:10 APTT 34 SECONDS (21-34) 04/21/18 13:10 Assessment and Plan - Assessment and Plan (Free Text) Assessment: A/P 83 yr old female on home hospice admitted with AMS, Respiratory distress, acute, Metastatic cancer, Acute renal insufficiency Patient family agrees for inpatient hospice [facility] here discussed with pateint family and agrees for inpt hospice The above plan discussed with Dr. Serrato all ordered placed as per [facility] recommendations
== END 2018-04-24 17:34 | disposition hospice, inpatient (51) | DRG 682 ==
LOC: C.ER 11:57 → C.9E 14:15 → C.5S 14:44
PROVIDERS: ADMIT Internal Medicine; ATTEND Internal Medicine
DX: N17.9 Acute kidney failure, unspecified (principal); R40.20 Unspecified coma; E87.5 Hyperkalemia; F17.210 Nicotine dependence, cigarettes, uncomplicated; E86.0 Dehydration; H40.9 Unspecified glaucoma; E03.9 Hypothyroidism, unspecified; I11.0 Hypertensive heart disease with heart failure; H54.61 Unqualified visual loss, right eye, normal vision left eye; I48.91 Unspecified atrial fibrillation; K74.60 Unspecified cirrhosis of liver; R62.7 Adult failure to thrive; R63.3 Feeding difficulties; Z51.5 Encounter for palliative care; Z66 Do not resuscitate; Z85.3 Personal history of malignant neoplasm of breast; Z90.10 Acquired absence of unspecified breast and nipple; Z92.21 Personal history of antineoplastic chemotherapy; Z95.0 Presence of cardiac pacemaker; K72.90 Hepatic failure, unspecified without coma; J44.9 Chronic obstructive pulmonary disease, unspecified; I50.9 Heart failure, unspecified